=== PATIENT | male | born 1965 | race American Indian/Alaskan Native ===

== ENCOUNTER 2016-08-04 03:47 | Inpatient (IN) | payer OTHER ==
[2016-08-04] MEDS ORDERED: FUROSEMIDE 40 MG/4 ML INJECTABLE VIAL IVPUSH ONE ×2 (03:51→04:11)
[2016-08-04] MEDS ORDERED: NITROGLYCERIN 2% OINTMENT - 1GM PACKET TD ONE (03:51)
--- NOTE | 2016-08-04 03:52 | PDOC ---
[id number] No Limitations - History of Present Illness Initial Comments: 08/04/16 04:19 The patient is a 51 year old male with significant past medical history of hypertension and hyperlipidemia who presents to the ED with 2 days of progressively worsening SOB. States after his SOB progressively started to get worse, he contacted EMS. He presents with EMS on BPAP saturating at 65%. Patient denies chest pain, diaphoresis, lightheadedness, jaw pain, shoulder pain , arm pain, nausea, or vomiting. Patient does not follow up with a printer assistant. States never experiencing similar symptoms in the past. Denies sick contacts or recent travels. The patient denies fever, chills, cough, abdominal pain, and diarrhea. Allergies: NKDA Social History: Former cigarette smoker (quit 10 years ago). No alcohol or drug use reported. Past Surgical History: None reported Follows up with a physician on [address] (does not remember name) <Linda Trinh - Last Filed: 08/04/16 04:18> - General History Source: EMS <Augusto Torres - Last Filed: 08/07/16 19:42> - General Stated Complaint: DIFFICULTY BREATHING Time Seen by Provider: 08/04/16 03:50 Past History <Linda Trinh - Last Filed: 08/04/16 04:18> <Augusto Torres - Last Filed: 08/07/16 19:42> - Past Medical History Allergies/Adverse Reactions: Allergies Allergy/AdvReac Type Severity Reaction Status Date / Time No Known Allergies Allergy Verified 08/04/16 04:03 Home Medications: Ambulatory Orders Amlodipine Bes/Olmesartan Med [Garcia 10-40 mg Tablet] 1 each PO DAILY 08/04/16 Review of Systems - Review of Systems Able to Perform ROS?: Yes Comments:: 08/04/16 04:19 CONSTITUTIONAL: Absent: fever, no chills, no fatigue EYES: Absent: visual changes ENT: Absent: ear pain, no sore throat CARDIOVASCULAR: Absent: chest pain, no palpitations RESPIRATORY: +SOB Absent: cough GI: Absent: abdominal pain, no nausea, no vomiting, no constipation, no diarrhea GENITOURINARY: Absent: dysuria, no frequency, no hematuria MUSCULOSKELETAL: Absent: back pain, no arthralgia, no myalgia SKIN: Absent: rash NEURO: Absent: headache <AndresbishopStephenLinda - Last Filed: 08/04/16 04:18> *Physical Exam - Physical Exam Comments: 08/04/16 04:19 GENERAL: Well developed, well nourished. Awake and alert. Moderate distress. HEENT: Normocephalic, atraumatic. PERRLA, EOMI. No conjunctival pallor. Sclera are non- icteric. Moist mucous membranes. Oropharynx is clear. NECK: Supple. Full ROM. No JVD. Carotid pulses 2+ and symmetric, without bruits. No thyromegaly. No lymphadenopathy. CARDIOVASCULAR: Regular rate and rhythm. No murmurs, rubs, or gallops. PULMONARY: Moderate respiratory distress. Supraclavicular retractions. Moderate conversational dyspnea. Diffuse crackles in all lung jones. ABDOMINAL: Soft. Non-tender. Non-distended. No rebound or guarding. No organomegaly. Normoactive bowel sounds. MUSCULOSKELETAL Normal range of motion at all joints. No bony deformities or tenderness. No CVA tenderness. EXTREMITIES: No cyanosis. No clubbing. No edema. No calf tenderness. SKIN: Warm and dry. Normal capillary refill. No rashes. No jaundice. NEUROLOGICAL: Alert, awake, appropriate. Cranial nerves 2-12 intact. Moving all extremities. No focal neurological deficits. <AndresbishopAntoinetteLinda - Last Filed: 08/04/16 04:18> Heart Score/ECG Review - ECG Impressions Comment:: 08/04/16 04:02 Sinus tachycardia @122bpm Possible L atrial enlargement St & T wave abnormality, consider lateral ischemia Abnormal ECG <GayathriLinda - Last Filed: 08/04/16 04:18> ED Treatment Course - LABORATORY CBC & Chemistry Diagram: 08/04/16 03:45 08/04/16 03:45 <Linda Trinh - Last Filed: 08/04/16 04:18> - LABORATORY CBC & Chemistry Diagram: 08/07/16 05:25 08/07/16 05:25 <Augusto Torres - Last Filed: 08/07/16 19:42> Medical Decision Making - Medical Decision Making 08/07/16 19:41 Dr. Torres: The scribe's documentation has been prepared under my direction and personally reviewed by me in its entirery. I confirm that the note above accurately reflects all work, treatment, procedures, and medical decision making performed by me. <Augusto Torres - Last Filed: 08/07/16 19:42> *DC/Admit/Observation/Transfer - Attestations Scribe Attestion: 08/04/16 04:19 Documentation prepared by Linda Trinh, acting as emergency medical services coordinator for Augusto Torres MD <Linda Trinh - Last Filed: 08/04/16 04:18> - Discharge Dispostion Admit: Yes <Augusto Torres - Last Filed: 08/07/16 19:42> Diagnosis at time of Disposition: Pulmonary edema Qualifiers: Chronicity: acute Qualified Code(s): J81.0 - Acute pulmonary edema Dyspnea Qualifiers: Dyspnea type: orthopnea Qualified Code(s): R06.01 - Orthopnea - Discharge Dispostion Condition at time of disposition: Guarded
[2016-08-04 04:09] LABS: MCH 29.1 pg (25.7-33.7); MCHC 32.9 g/dl (32.0-35.9); MEAN CELL VOLUME 88.3 fl (80-96); MEAN PLT VOLUME 10.6 fl (7.5-11.1); PLATELET COUNT 315 K/MM3 (134-434); RDW 14.3 % (11.9-15.9); WHITE BLOOD COUNT 22.1 K/mm3 (4.0-10.0)
[2016-08-04] MEDS ORDERED: ASPIRIN 81 MG CHEWABLE TABLETS PO ONE (04:11)
[2016-08-04] MEDS ORDERED: FUROSEMIDE 40 MG/4 ML INJECTABLE VIAL ONE (04:14)
[2016-08-04] MEDS ORDERED: ASPIRIN 81 MG CHEWABLE TABLETS ONE (04:19)
[2016-08-04 04:23] LABS: INR 1.12 (0.82-1.09); PROTHROMBIN TIME (PATIENT) 12.4 SEC (9.98-11.88)
[2016-08-04 04:40] LABS: ALBUMIN 2.9 g/dl (3.4-5.0); BILIRUBIN,TOTAL 0.4 mg/dL (0.2-1.0); COCKROFT - GAULT 55.95; CREATININE 2.3 mg/dL (0.7-1.3); TOT PROT 6.9 g/dl (6.4-8.2)
[2016-08-04 04:42] LABS: TROPONIN I 0.07 ng/ml (0.00-0.05)
[2016-08-04 04:57] LABS: MAGNESIUM 2.2 mg/dL (1.8-2.4)
--- NOTE | 2016-08-04 05:42 | PN ---
Teaching Attending Note Name of Resident: Sachin Leon ATTENDING PHYSICIAN STATEMENT I saw and evaluated the patient. I reviewed the resident's note and discussed the case with the resident. I agree with the resident's findings and plan as documented. SUBJECTIVE: 51 y/o male brought to ED by EMS for severe dyspnea for 2 days. Patient history significant for HTN, hyperlipidemia and former smoker. Patient denies any chest pain, palpitations, abdominal pain, CVA tenderness, dysuria, hematuria, fever, chills, nausea or vomiting. No known sick contacts. OBJECTIVE: GEN: A&Ox3 on bipap sat 89-91% HEENT: PERRLA, EOMI, Oral mucosa moist, JVD CVS: Tachycardic, no m/g/r Lungs: b/l crackles and diminished breath sounds lower lungs. No wheezing Abd: obese, soft , NT, ND, BS+ no organomegaly Ext: no edema, nl ROM Neuro CN2-12 intact no focal deficits. CBCD WBC 22.1 K/mm3 (4.0-10.0) H 08/04/16 03:45 RBC 5.75 M/mm3 (4.00-5.60) H 08/04/16 03:45 Hgb 16.7 GM/dL (11.7-16.9) 08/04/16 03:45 Hct 50.8 % (35.4-49) H 08/04/16 03:45 MCV 88.3 fl (80-96) 08/04/16 03:45 MCHC 32.9 g/dl (32.0-35.9) 08/04/16 03:45 RDW 14.3 % (11.9-15.9) 08/04/16 03:45 Plt Count 315 K/MM3 (134-434) 08/04/16 03:45 MPV 10.6 fl (7.5-11.1) 08/04/16 03:45 CMP Sodium 142 mmol/L (136-145) 08/04/16 03:45 Potassium 3.9 mmol/L (3.5-5.1) 08/04/16 03:45 Chloride 101 mmol/L (98-107) 08/04/16 03:45 Carbon Dioxide 24 mmol/L (21-32) 08/04/16 03:45 Anion Gap 17 (8-16) H 08/04/16 03:45 BUN 35 mg/dL (7-18) H 08/04/16 03:45 Creatinine 2.3 mg/dL (0.7-1.3) H 08/04/16 03:45 Creat Clearance w eGFR 30.25 (>60) 08/04/16 03:45 Random Glucose 223 mg/dL (74-106) H 08/04/16 03:45 Calcium 9.0 mg/dL (8.5-10.1) 08/04/16 03:45 Total Bilirubin 0.4 mg/dL (0.2-1.0) 08/04/16 03:45 AST 29 U/L (15-37) 08/04/16 03:45 ALT 24 U/L (12-78) 08/04/16 03:45 Alkaline Phosphatase 94 U/L (45-117) 08/04/16 03:45 Total Protein 6.9 g/dl (6.4-8.2) 08/04/16 03:45 Albumin 2.9 g/dl (3.4-5.0) L 08/04/16 03:45 CARDIAC ENZYMES Creatine Kinase 189 IU/L (39-308) 08/04/16 03:45 Troponin I 0.07 ng/ml (0.00-0.05) H 08/04/16 03:45 ASSESSMENT AND PLAN: Dyspnea secondary to flash pulmonary edema, secondary to DOMENICA vs CHF, r/o infection. HAGMA possibly secondary to uremia from DOMENIAC , vs DKA. Demand ischemia r/o ACS. Admit to ICU * UA, U electrolytes * ABG * HgbA1c * Lipids * Trend troponins * Lactic acid, esr and crp * Continue BIPAP * Get ECHO * Diuresis Lasix 60 mg IVP * Monitor I&Os * RISS * DVT prophylaxis Heparin 5000 Unit SQ TID * Discuss advance directives Problem List - Problems (1) Pulmonary edema Code(s): J81.1 - CHRONIC PULMONARY EDEMA Qualifiers: Chronicity: acute Qualified Code(s): J81.0 - Acute pulmonary edema (2) DOMENICA (acute kidney injury) Code(s): N17.9 - ACUTE KIDNEY FAILURE, UNSPECIFIED (3) High anion gap metabolic acidosis Code(s): E87.2 - ACIDOSIS (4) Elevated troponin Code(s): R74.8 - ABNORMAL LEVELS OF OTHER SERUM ENZYMES Critical Care Total Critical Care Time (in minutes): 60 Critical Care Statement: The care of this patient involved high complexity decision making to prevent further life threatening deterioration of the patient 's condition and/or to evalute & treat vital organ system(s) failure or risk of failure.
[2016-08-04 06:14] LABS: URINE APPEARANCE CLEAR; URINE BILIRUBIN NEGATIVE (NEGATIVE); URINE COLOR YELLOW; URINE GLUCOSE (UA) 1+ (NEGATIVE); URINE KETONE TRACE (NEGATIVE); URINE LEUK ESTERASE NEGATIVE (NEGATIVE); URINE NITRITE NEGATIVE (NEGATIVE); URINE UROBILINOGEN NEGATIVE E.U./dl (0.2-1.0)
[2016-08-04 06:15] LABS: URINE BLOOD 1+ (NEGATIVE); URINE PROTEIN 2+ (NEGATIVE)
[2016-08-04 06:26] LABS: URINE HYALINE CAST 4 /lpf; URINE MUCUS RARE; URINE RBC 1 /hpf (0-3); URINE WBC 2 /hpf (3-5)
[2016-08-04 06:47] LABS: ARTERIAL BLOOD GAS HCO3 22.4 meq/L (22-26); ARTERIAL BLOOD GAS PO2 70.8 mmHg (80-100)
[2016-08-04 06:50] LABS: METHEMOGLOBIN 0.6 % (0.4-1.5)
[2016-08-04 06:51] LABS: ALLENS TEST POSITIVE; ART PUNCT SITE RIGHT RADIAL; LPM/O2% 100%; MECH. VENT. BIPAP; PT. ON O2? YES; TYPE OF O2 BIPAP; VENT RATE 15
[2016-08-04 06:54] LABS: ARTERIAL BLOOD GAS pH 7.46 (7.35-7.45)
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
--- NOTE | 2016-08-04 08:58 | EKG ---
Test Reason : Blood Pressure : / mmHG Vent. Rate : 122 BPM Atrial Rate : 122 BPM P-R Int : 148 ms QRS Dur : 094 ms QT Int : 336 ms P-R-T Axes : 048 001 101 degrees QTc Int : 478 ms SINUS TACHYCARDIA POSSIBLE LEFT ATRIAL ENLARGEMENT ABNORMAL ECG NO PREVIOUS ECGS AVAILABLE Confirmed by DEBRA SMITH MD ([id number]) on 08/04/2016 8:58:11 AM Referred By: Confirmed By:DEBRA SMITH MD
[2016-08-04 09:06] LABS: CHOLESTEROL 178 mg/dL (50-200); LDL CHOLESTEROL (ONLY SJRH) 95 mg/dL (5-100)
[2016-08-04 10:39] LABS: TROPONIN I 0.24 ng/ml (0.00-0.05)
--- NOTE | 2016-08-04 11:08 | HOSP ---
Subjective - Review of Symptoms Events since last encounter: Patient improving on BIPAP 100% Subjective: Patient more alert and states he feels better. Pulmonary: Yes: Cough Cardiovascular: Yes: Orthopnea. No: Chest Pain, Palpitations, Edema Gastrointestinal: No: Nausea, Vomiting, Abdominal Pain Genitourinary: No: Dysuria, Frequency, Incontinence Musculoskeletal: No: Back Pain Neurological: No: Weakness, Change in speech, Confusion Physical Examination Vital Signs: Vital Signs Temperature 97.6 F 08/04/16 06:30 Pulse Rate 98 H 08/04/16 10:24 Respiratory Rate 24 08/04/16 10:24 Blood Pressure 122/82 08/04/16 10:24 O2 Sat by Pulse Oximetry (%) 93 L 08/04/16 10:24 Constitutional: Yes: Calm, Moderate Distress, Obese Eyes: Yes: Conjunctiva Clear, EOM Intact, PERRL HENT: Yes: Atraumatic, Normocephalic. No: Nasal Congestion, Pharyngeal Erythema Neck: Yes: Supple, Trachea Midline. No: Lymphadenopathy Cardiovascular: Yes: Tachycardia, JVD, S1, S2. No: Gallop, Murmur Respiratory: Yes: On BiPap, Rales, SOB, Tachypnea. No: Wheezes Gastrointestinal: Yes: Normal Bowel Sounds, Soft, Abdomen, Obese. No: Tenderness Edema: No Peripheral Pulses WNL: Yes Integumentary: Yes: WNL Neurological: Yes: Alert, Oriented, Cran Nerves II-XII Intact ...Motor Strength: WNL Psychiatric: Yes: Alert, Oriented Labs: CBCD WBC 22.1 K/mm3 (4.0-10.0) H 08/04/16 03:45 RBC 5.75 M/mm3 (4.00-5.60) H 08/04/16 03:45 Hgb 16.7 GM/dL (11.7-16.9) 08/04/16 03:45 Hct 50.8 % (35.4-49) H 08/04/16 03:45 MCV 88.3 fl (80-96) 08/04/16 03:45 MCHC 32.9 g/dl (32.0-35.9) 08/04/16 03:45 RDW 14.3 % (11.9-15.9) 08/04/16 03:45 Plt Count 315 K/MM3 (134-434) 08/04/16 03:45 MPV 10.6 fl (7.5-11.1) 08/04/16 03:45 CMP Sodium 142 mmol/L (136-145) 08/04/16 03:45 Potassium 3.9 mmol/L (3.5-5.1) 08/04/16 03:45 Chloride 101 mmol/L (98-107) 08/04/16 03:45 Carbon Dioxide 24 mmol/L (21-32) 08/04/16 03:45 Anion Gap 17 (8-16) H 08/04/16 03:45 BUN 35 mg/dL (7-18) H 08/04/16 03:45 Creatinine 2.3 mg/dL (0.7-1.3) H 08/04/16 03:45 Creat Clearance w eGFR 30.25 (>60) 08/04/16 03:45 Random Glucose 223 mg/dL (74-106) H 08/04/16 03:45 Calcium 9.0 mg/dL (8.5-10.1) 08/04/16 03:45 Total Bilirubin 0.4 mg/dL (0.2-1.0) 08/04/16 03:45 AST 29 U/L (15-37) 08/04/16 03:45 ALT 24 U/L (12-78) 08/04/16 03:45 Alkaline Phosphatase 94 U/L (45-117) 08/04/16 03:45 Total Protein 6.9 g/dl (6.4-8.2) 08/04/16 03:45 Albumin 2.9 g/dl (3.4-5.0) L 08/04/16 03:45 CARDIAC ENZYMES Creatine Kinase 192 IU/L (39-308) 08/04/16 09:44 Troponin I 0.24 ng/ml (0.00-0.05) H D 08/04/16 09:44 Hospitalist Encounter Assessment: Acute pulmonary edema possibly secondary to HTN emergency, elevated troponins, and DOMENICA vs DOMENICA on CKD, r/o CHF. Elevated troponins possibly secondary to demand ischemia, r/o ACS repeat EKG and follow ECHO. Continue diuresis 40mg Lasix TID and follow I&Os. Repeat CXR in AM. HgbA1c 6.4 prediabetic- diabetic low sodium diet. Follow ICU and cardiology consults. Plans d/w patient and agreed on as documented. Critical Care Total Critical Care Time (in minutes): 30 Critical Care Statement: The care of this patient involved high complexity decision making to prevent further life threatening deterioration of the patient 's condition and/or to evalute & treat vital organ system(s) failure or risk of failure.
[2016-08-04] MEDS ORDERED: FUROSEMIDE 40 MG/4 ML INJECTABLE VIAL IVPUSH SCH (12:00)
[2016-08-04 13:04] LABS: BASOPHIL 0.2 % (0-2.0); EOSINOPHIL 0.3 % (0-4.5); MCH 29.1 pg (25.7-33.7); MEAN CELL VOLUME 88.2 fl (80-96); MEAN PLT VOLUME 10.1 fl (7.5-11.1); NEUTROPHILS 90.4 % (42.8-82.8); PLATELET COUNT 229 K/MM3 (134-434); RDW 14.4 % (11.9-15.9); WHITE BLOOD COUNT 24.4 K/mm3 (4.0-10.0)
[2016-08-04 13:29] LABS: ALBUMIN 2.6 g/dl (3.4-5.0); CALCIUM 8.2 mg/dL (8.5-10.1); COCKROFT - GAULT 47.66; CREATININE 2.7 mg/dL (0.7-1.3)
[2016-08-04 13:30] LABS: BILIRUBIN,TOTAL 0.4 mg/dL (0.2-1.0); TOT PROT 6.3 g/dl (6.4-8.2)
[2016-08-04 15:05] VITALS: BMI 33.5
[2016-08-04] MEDS ORDERED: INFLUENZA VACCINE 45 MCG/0.5 ML (MDV 16-17) IM ONE (15:05)
--- NOTE | 2016-08-04 15:30 | PN ---
Progress Note (short form) - Note Progress Note: PULMONARY CONSULTATION DICTATED 08/04/16 IMP ACUTE HYPOXEMIC RESPIRATORY FAILURE SEPSIS ARDS, LIKELY PNEUMONIA,? BACTERIAL,ATYPICAL,?LEGIONELLA,?VIRAL ACUTE RENAL FAILURE LV DYSFUNCTION + TROPONINS ELEVATED LACTATE LEVEL PLAN ANTIBIOTICS PER ID STEROIDS BIPAP,WILL INTUBATE IF PT DEVELOPES INCREASED RESPIRATORY DISTRESS MONITOR LYTES,CBC CULTURES TREND LACTATE DR TINSLEY CRITICAL CARE TIME 45MIN Problem List - Problems (1) HLD (hyperlipidemia) Code(s): E78.5 - HYPERLIPIDEMIA, UNSPECIFIED (2) HTN (hypertension) Code(s): I10 - ESSENTIAL (PRIMARY) HYPERTENSION (3) Acute hypoxemic respiratory failure Code(s): J96.01 - ACUTE RESPIRATORY FAILURE WITH HYPOXIA (4) ARDS (adult respiratory distress syndrome) Code(s): J80 - ACUTE RESPIRATORY DISTRESS SYNDROME (5) DOMENICA (acute kidney injury) Code(s): N17.9 - ACUTE KIDNEY FAILURE, UNSPECIFIED (6) Elevated troponin Code(s): R74.8 - ABNORMAL LEVELS OF OTHER SERUM ENZYMES (7) LV dysfunction Code(s): I51.9 - HEART DISEASE, UNSPECIFIED (8) Lactate blood increase Code(s): R79.89 - OTHER SPECIFIED ABNORMAL FINDINGS OF BLOOD CHEMISTRY (9) Sepsis Code(s): A41.9 - SEPSIS, UNSPECIFIED ORGANISM
--- NOTE | 2016-08-04 15:31 | PN ---
Progress Note, Physician Chief Complaint: ID Dyspneic Alert Full note dictated Denies couph fevers chills sweats Acutely ill with worsening SOB over the last 3 days Only medical problem HPTN No travel HIV risks Born in [place] Raised here locally Works in [employer] worker - Current Medication List Current Medications: Active Medications Chlorhexidine Gluconate (Hibiclens For Decolonization -) 1 applic TP HS DARBY Furosemide (Lasix Injection -) 40 mg IVPUSH TID DARBY Last Admin: 08/04/16 12:30 Dose: 40 mg Heparin Sodium (Porcine) (Heparin -) 5,000 unit SQ TID DARBY Influenza Virus Vaccine (Fluvirin) 45 mcg IM .ONCE ONE Stop: 08/04/16 15:06 Mupirocin (Bactroban Ointment (For Decolonization) -) 1 applic NS BID DARBY Stop: 08/09/16 09:59 Pneumococcal 13-Valent Conj Vacc (Prevnar 13 Syringe -) 0.5 ml IM .ONCE ONE Stop: 08/04/16 15:06 - Objective Vital Signs: Vital Signs Temperature 97.6 F 08/04/16 06:30 Pulse Rate 100 H 08/04/16 15:13 Respiratory Rate 33 H 08/04/16 15:13 Blood Pressure 146/97 08/04/16 15:13 O2 Sat by Pulse Oximetry (%) 96 08/04/16 15:13 Constitutional: Yes: Obese Cardiovascular: Yes: Regular Rate and Rhythm, S1, S2 Respiratory: Yes: Rales Gastrointestinal: Yes: Soft. No: Tenderness, Tenderness, Rebound Edema: No Labs: CBC, BMP 08/04/16 12:45 08/04/16 12:45 INR, PTT INR 1.12 (0.82-1.09) 08/04/16 03:45 Assessment/Plan Laboratory Tests 08/04/16 08/04/16 08/04/16 03:45 05:44 06:45 WBC Hgb Plt Count Neutrophils % ESR INR 1.12 Oxygen Flow Rate 100% Lactic Acid Troponin I Urine RBC 1 Urine WBC 2 08/04/16 08/04/16 08/04/16 09:44 09:44 12:45 WBC 24.4 H Hgb 15.2 Plt Count 229 D Neutrophils % 90.4 H ESR 75 H INR Oxygen Flow Rate Lactic Acid Troponin I 0.24 H D Urine RBC Urine WBC 08/04/16 12:45 WBC Hgb Plt Count Neutrophils % ESR INR Oxygen Flow Rate Lactic Acid 2.171 H* Troponin I Urine RBC Urine WBC Assessment Bilateral extensive pulmonary infiltrates assume pneumonia infectious etiology Acute renal failure sepsis related but vasculitis considered Respiratory failure Plan Blood cultures x 2 legionella urinary antigen Spustum c/s HIV test Vasculitis serology Renal and pulmonary on board ICU monitering Influenza screen negative Demario
[2016-08-04] MEDS ORDERED: VANCOMYCIN 1,750 MG in DEXTROSE 5%-WATER - 500 ML IVPB ONE (15:34)
--- NOTE | 2016-08-04 16:18 | CONS ---
DATE OF CONSULTATION: 08/04/2016 PULMONARY CONSULTATION REFERRING PHYSICIAN: Akosua Sanchez M.D. HISTORY OF PRESENT ILLNESS: The patient is a 51-year-old male past medical history of hypertension, hyperlipidemia, history of tobacco use approximately 1 pack per day many years, quit 10 years ago, admitted to [facility] with a 2-day history of increasing shortness of breath. Patient denying complaint of chest pain, nausea, vomiting, diaphoreses. Had a cough which was nonproductive. Denies any fevers or chills. He states that last night when getting up out of the chair he felt markedly short of breath. EMS was called, and the patient was noted to be hypoxic with a saturation of 65%. EMS, placed the patient on BiPAP, supplemental O2. Hospitalization significant for an admission, he was felt to have possible CHF. He was administered Lasix but no significant improvement. He was also noted to have elevated troponins of 0.24 and BNP is mildly elevated at 1197. Patient also found to have renal failure. Patient denies any history of COPD or asthma. There is no history of occupational lung diseases, no DVT or PE in the past. There is no history of recent travel. He denies any recent URI symptoms. He states no one in the family has been recently ill. There is no history of pets at home. He denies any significant shortness of breath past few days. PAST MEDICAL HISTORY: Again include hypertension, hyperlipidemia. REVIEW OF SYSTEMS: Positive orthopnea. Positive dyspnea. No chest pain. No palpitations. Positive mild cough. No fever. No chills. No nausea. No vomiting. No diaphoresis. No abdominal pain. No lower extremity edema. CURRENT MEDICATIONS: Include Lasix 40 t.i.d., heparin . PHYSICAL EXAMINATION: General: The patient is an obese male, awake, alert, dyspneic, under distress. Vital signs: On BiPAP his O2 saturation is 96%. Heart rate is 98. Blood pressure 127/85, respiratory rate 18. Of note is the patient's blood pressure on admission. HEENT: Head is normocephalic, atraumatic. Neck: Supple. Heart: Regular. Tachycardic. Normal S1, S2. Chest: Crackles bilaterally. Abdomen: Soft. Bowel sounds positive. Extremities: No cyanosis, edema. LABORATORY: BUN 40, creatinine 2.7. Lactate level is 2.17. Troponin is 0.24. BNP 1197. Of note is, CRP is 27.9, ESR is 75, WBC is 24.4, hemoglobin 15.2, hematocrit 46, platelet count 229,000. There are 90 polycytes, 5 lymphocytes, 3 monocytes. INR is 1.12. Chest x-ray, diffuse bilateral infiltrates no pleural effusions. Echocardiogram reveals left ventricle mildly dilated and mildly reduced left ventricular systolic function. There is mild global hypokinesia. Blood gas: pH 7.46, pCO2 of 31, and pO2 of 70, bicarbonate 22, saturation 94%. IMPRESSION: 1. Acute hypoxemic respiratory failure, likely pneumonia typical vs atypical, legionella ,viral, possible inflammatory. 2. Sepsis 3. Positive troponins, rule out myocardial infarction. Possible demand ischemia. 4. Acute Renal failure. 5. LV dysfunction 6, Elevated lactate level PLAN: BiPAP. ICU, transfer to ICU. Patient may require intubation. If patient's respiratory status declines, monitor renal function. short course of steroids. Antibiotic therapy. Renal evaluation. Infectious disease evaluation. Trend lactate, Obtain cultures. Follow up arterial blood gases. Follow up chest x-rays. Possible workup for connective tissue disorder. STIVEN TINSLEY M.D. [id number] MTDD
[2016-08-04] MEDS ORDERED: AZITHROMYCIN IVPB 500 MG in DEXTROSE 5%-WATER - 250 ML IVPB ONE (16:24)
[2016-08-04] MEDS ORDERED: CEFTRIAXONE 100 ML IVPB ONE (16:24)
[2016-08-04] MEDS ORDERED: AZITHROMYCIN IVPB 500 MG in DEXTROSE 5%-WATER - 250 ML IVPB SCH (16:30)
[2016-08-04] MEDS: methylPREDNISolone NA SUCC 40 MG/1 ML VIAL IVPB SCH (16:37)
[2016-08-04] MEDS: HEPARIN NA (PORCINE) 5,000 UNITS/ML 1ML VIAL SQ SCH ×2 (16:40→21:35)
--- NOTE | 2016-08-04 16:40 | CONS ---
DATE OF CONSULTATION: DATE OF DICTATION: 08/04/2016 INFECTIOUS DISEASE CONSULTATION HISTORY OF PRESENT ILLNESS: This is a 51-year-old male who I am asked to see with shortness of breath and leukocytosis. This 51-year-old male with a history of essentially only hypertension, hyperlipidemia, presented to the emergency room with a 3-day history of worsening shortness of breath. Other than his history of hypertension and elevated cholesterol, he had been in good health until earlier this week, when he noted onset of worsening shortness of breath. When he came to the emergency room, he was saturating at about 65% on a BiPAP mask. While he had no fever, he had a marked leukocytosis of 24,000. X-rays showed diffuse bilateral pulmonary infiltrates, possibility of congestive heart failure was considered, and he was given Lasix without significant improvement. He has no history of travel and lives locally. He has no HIV risk factors, does not use drugs or alcohol, nor does he smoke. He has children at home who have been sick recently with a respiratory tract infection according to Dr. Javed. 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 He has no pets or unusual hobbies. The record indicates he smoked, but gave this up 10 years ago. PHYSICAL EXAMINATION: General: He is a heavy set male weighing 250 pounds. Vital signs: Temperature normal. Pulse 100, blood pressure 146/97, respiratory rate 33, and O2 saturation 96% on BiPAP. Neck: Supple without adenopathy. Lungs: With bilateral rales. Heart: S1, S2. Regular rhythm. Distant heart sounds. Abdomen: Soft. Nontender without hepatosplenomegaly. Extremities: Without clubbing, cyanosis, or edema. LABORATORY: The white count was 24,000, hemoglobin 15.2, platelets 229 with a sedimentation rate of 75. INR 1.2. AB.46, 32, 71, with 100% oxygen. The BUN was 40, creatinine 2.7, lactic acid 2.1, liver enzymes within normal limits. Chest x-ray was reviewed with Dr. Javed and shows diffuse bilateral infiltrates with air space disease. ASSESSMENT: A 51-year-old male with a history only of hypertension, hyperlipidemia, presents with sepsis syndrome and respiratory failure with bilateral pulmonary infiltrates. He was a former smoker but gave this up many years ago. He has no human immunodeficiency virus risk factors. At this point, I would be inclined to think that he has an acute fulminant bacterial pneumonia. He is in renal failure, and the possibility of vasculitis with pulmonary renal syndrome considered; however, his urinalysis sediment has 1 RBC and 2 WBCs suggesting that he does not have an active urinary sediment which would argue against pulmonary renal syndrome. The renal failure may be on the basis of sepsis. He should have prompt antibiotics given with vancomycin, ceftriaxone, and azithromycin, the possibility of legionella pneumonia strongly considered in view of his otherwise normal immune system and the fulminant nature of his pneumonia. Blood cultures will be obtained along with a urine culture, legionella urinary antigen, and serologies for vasculitis. He has already been screened negative for influenza. The case was discussed at length with Dr. Javed. HEATH SEGURA M.D. [id number]
[2016-08-04] MEDS: ALBUTEROL SO4 2.5/IPRATROPIUM 0.5 INH SOL 3 ML VIAL.NEB. NEB SCH (17:20)
--- NOTE | 2016-08-04 17:33 | CONSULT ---
Consult Consult Specialty:: Nephrology Reason for Consultation:: DOMENICA - History of Present Illness Chief Complaint: shortness of breath History of Present Illness: Pt is a 51 year old male with pmhx of HTN and hyperlipidemia who presents to the ER with progressive shortness of breath. He started to feel sick on Sunday and worsened through the course of the week. He says both of his sons were sick with a viral syndrome this week as well. He denies chest pain. He was found to be hypoxic in the ER and his chest x-ray revealed infultrates. He was found to have elevated creatinine and I was called to evaluate him. He denies history of kidney disease. He denies hematuria or dysuria. He is awake and alert. He is able to answer questions. Family are at bedside and assisted with history. Pt denies abdominal pain. Pt is on Derian as outpt (amlodipine and arb). - History Source History Provided By: Patient, Medical Record - Past Medical History Cardio/Vascular: Yes: HTN, Hyperlipdemia - Alcohol/Substance Use Hx Alcohol Use: No - Smoking History Smoking history: Former smoker Have you smoked in the past 12 months: No If you are a former smoker, when did you quit?: 10 years Home Medications - Allergies Allergies/Adverse Reactions: Allergies Allergy/AdvReac Type Severity Reaction Status Date / Time No Known Allergies Allergy Verified 08/04/16 04:03 - Home Medications Home Medications: Ambulatory Orders Amlodipine Bes/Olmesartan Med [Derian 10-40 mg Tablet] 1 each PO DAILY 08/04/16 Family Disease History - Family Disease History Family History: Denies Review of Systems - Review of Systems Constitutional: reports: Chills, Diaphoresis, Malaise Eyes: reports: No Symptoms HENT: reports: No Symptoms Neck: reports: No Symptoms Cardiovascular: reports: Shortness of Breath. denies: Chest Pain, Edema Respiratory: reports: SOB Gastrointestinal: reports: No Symptoms Genitourinary: reports: No Symptoms Musculoskeletal: reports: No Symptoms Integumentary: reports: No Symptoms Neurological: reports: No Symptoms Endocrine: reports: No Symptoms Hematology/Lymphatic: reports: No Symptoms Physical Exam Vital Signs: Vital Signs Temperature 99 F 08/04/16 16:18 Pulse Rate 104 H 08/04/16 16:18 Respiratory Rate 28 H 08/04/16 16:18 Blood Pressure 148/99 08/04/16 16:18 O2 Sat by Pulse Oximetry (%) 96 08/04/16 16:52 Constitutional: Yes: Calm Eyes: Yes: Conjunctiva Clear HENT: Yes: Atraumatic Neck: Yes: Supple Cardiovascular: Yes: S1, S2 Respiratory: Yes: On BiPap, Rhonchi Gastrointestinal: Yes: Soft Renal/: Yes: WNL Musculoskeletal: Yes: WNL Extremities: Yes: WNL Edema: No Neurological: Yes: Oriented Psychiatric: Yes: Oriented Labs: CBC, BMP 08/04/16 12:45 08/04/16 12:45 Laboratory Tests 08/04/16 08/04/16 08/04/16 03:45 03:45 03:45 WBC 22.1 H Hgb 16.7 Plt Count 315 INR 1.12 ABG pH ABG pCO2 at Pt Temp ABG pO2 at Pt Temp ABG HCO3 ABG O2 Sat (Measured) ABG O2 Content Sodium Potassium Chloride Carbon Dioxide Anion Gap 17 H BUN 35 H Creatinine 2.3 H Creat Clearance w eGFR Random Glucose Lactic Acid Total Protein Albumin 08/04/16 08/04/16 08/04/16 06:45 08:00 12:45 WBC 24.4 H Hgb 15.2 Plt Count 229 D INR ABG pH 7.46 H ABG pCO2 at Pt Temp 31.8 L ABG pO2 at Pt Temp 70.8 L ABG HCO3 22.4 ABG O2 Sat (Measured) 94.0 ABG O2 Content 21.2 Sodium Potassium Chloride Carbon Dioxide Anion Gap BUN Creatinine Creat Clearance w eGFR Random Glucose Lactic Acid 2.217 H* Total Protein Albumin 08/04/16 08/04/16 12:45 12:45 WBC Hgb Plt Count INR ABG pH ABG pCO2 at Pt Temp ABG pO2 at Pt Temp ABG HCO3 ABG O2 Sat (Measured) ABG O2 Content Sodium 143 Potassium 3.8 Chloride 105 Carbon Dioxide 25 Anion Gap 13 BUN 40 H Creatinine 2.7 H Creat Clearance w eGFR 25.14 Random Glucose 152 H D Lactic Acid 2.171 H* Total Protein 6.3 L Albumin 2.6 L Imaging - Results Chest X-ray: Report Reviewed (bilateral infultrates) Problem List - Problems (1) DOMENICA (acute kidney injury) Code(s): N17.9 - ACUTE KIDNEY FAILURE, UNSPECIFIED (2) ARDS (adult respiratory distress syndrome) Code(s): J80 - ACUTE RESPIRATORY DISTRESS SYNDROME (3) Elevated troponin Code(s): R74.8 - ABNORMAL LEVELS OF OTHER SERUM ENZYMES (4) HLD (hyperlipidemia) Code(s): E78.5 - HYPERLIPIDEMIA, UNSPECIFIED (5) HTN (hypertension) Code(s): I10 - ESSENTIAL (PRIMARY) HYPERTENSION (6) Respiratory failure with hypoxia Code(s): J96.91 - RESPIRATORY FAILURE, UNSPECIFIED WITH HYPOXIA Assessment/Plan Current Medications Generic Name Dose Route Start Last Admin Trade Name Freq PRN Reason Stop Dose Admin Chlorhexidine Gluconate 1 applic 08/04/16 22:00 Hibiclens For Decolonization - TP HS DARBY Heparin Sodium (Porcine) 5,000 unit 08/04/16 14:00 08/04/16 16:40 Heparin - SQ 5,000 unit TID DARBY Administration Ceftriaxone Sodium 100 mls @ 200 mls/hr 08/05/16 10:00 Rocephin 2gm Ivpb (Pre-Docked) IVPB DAILY DARBY Azithromycin 250 mls @ 250 mls/hr 08/04/16 16:30 Zithromax 500mg Ivpb (Pre-Docked) IVPB DAILY DARBY Methylprednisolone Sodium Succinate 40 mg 08/04/16 16:15 08/04/16 16:37 Solu-Medrol - IVPB 40 mg DAILY DARBY Administration Mupirocin 1 applic 08/04/16 17:00 Bactroban Ointment (For Decolonization) - NS 08/09/16 16:59 BID DARBY Pneumococcal 13-Valent Conj Vacc 0.5 ml 08/04/16 18:00 Prevnar 13 Syringe - IM 08/04/16 18:01 .ONCE ONE Laboratory Tests 08/04/16 08/04/16 08/04/16 05:44 05:44 12:45 Sodium 143 Creatinine 2.7 H Urine Protein 2+ H Urine Blood 1+ H Urine RBC 1 Ur Random Sodium 24 Urine Creatinine 296.0 Impression 1. DOMENICA 2. sepsis 3. HTN 4. hyperlipidemia 5. ARDS 6. lactic acidosis 7. CHF with systolic dysfunction 8. resp failure requiring Bipap 9. hypoxia Plan - FENa is 0.15 percent, which is characteristic of pre-renal disease - check ultrasound kidneys and bladder - send lulu, esr, and anca - cont abx - follow up cultures - admit pt to ICU - cont with Bipap, saturation improved once started - check complement levels - will need to monitor renal function closely - echo reviewed, there is LV dysfunction, cardiology evaluation - recommend holding derian, would not give Arbs at this time - pt received lasix on ER, will observe in ICU - trend lactic acid levels - will need to consider vasculitis, pt is already on steroids - discussed with pulmonary Dr Rosa
[2016-08-04] MEDS ORDERED: ALBUTEROL SO4 2.5/IPRATROPIUM 0.5 INH SOL 3 ML VIAL.NEB. NEB PRN (17:40)
--- NOTE | 2016-08-04 17:42 | PN ---
Physical Exam: SUBJECTIVE: Patient seen and examined Pt is a 51 year old male with pmhx of HTN and hyperlipidemia who presents to the ER with progressive shortness of breath. He started to feel sick on Sunday and worsened through the course of the week. He says both of his sons were sick with a viral syndrome this week as well. He denies chest pain. He was found to be hypoxic in the ER and his chest x-ray revealed infultrates. He was found to have elevated creatinine. He denies chest pain. He denies hematuria or dysuria. He is awake and alert. He is able to answer questions. Pt denies abdominal pain. Pt is on amlodipine and arb. patient is on bipap since morning , states breathing has slightly improved denies chest pain, lighheadidnes, dizziness, nusea vomiting got azithro, vanco and zosyn got 40 mg solumedrol trend lactic acid, trop i if distress increases intubate patient patient is full code. OBJECTIVE: Vital Signs Period Temp Pulse Resp BP Sys/[place] Pulse Ox Last 24 Hr 97.6 F-99 F 97-106 18-33 109-148/81-99 92-100 GENERAL: Awake, alert, and fully oriented, on bipap. HEAD: Normal with no signs of trauma. EYES: extraocular movements intact, sclera anicteric, conjunctiva clear. No lid lag. EARS, NOSE, THROAT: Ears normal, nares patent, NECK: Normal range of motion LUNGS: no wheezing, b/l diffuse rales, HEART: s1s2 normal tachy ABDOMEN: Soft, obese, nontender, not distended, normoactive bowel sounds, no guarding, no rebound, no masses. MUSCULOSKELETAL: Normal range of motion at all joints. No bony deformities or tenderness. No CVA tenderness. LOWER EXTREMITIES: 2+ pulses, warm, well-perfused. No calf tenderness. NEUROLOGICAL: Normal speech. Gait not observed. PSYCHIATRIC: Cooperative. Good eye contact. Appropriate mood and affect. SKIN: Warm, dry, normal turgor, no rashes or lesions noted, normal capillary refil Laboratory Results - last 24 hr 08/04/16 08/04/16 08/04/16 05:44 05:44 06:45 WBC RBC Hgb Hct MCV MCHC RDW Plt Count MPV Neutrophils % Lymphocytes % Monocytes % Eosinophils % Basophils % ESR Puncture Site Right radial ABG pH 7.46 H ABG pCO2 at Pt Temp 31.8 L ABG pO2 at Pt Temp 70.8 L ABG HCO3 22.4 ABG O2 Sat (Measured) 94.0 ABG O2 Content 21.2 ABG Base Excess 0.0 Shaquille Test Positive Carboxyhemoglobin 1.3 Methemoglobin 0.6 O2 Delivery Device Bipap Oxygen Flow Rate 100% Vent Mode S/t Vent Rate 15 Mechanical Rate Bipap PEEP 0.0 Pressure Support Vent 12/6 Sodium Potassium Chloride Carbon Dioxide Anion Gap BUN Creatinine Creat Clearance w eGFR Random Glucose Hemoglobin A1c % Lactic Acid Calcium Total Bilirubin AST ALT Alkaline Phosphatase Creatine Kinase Creatine Kinase Index CK-MB (CK-2) CK-MB (CK-2) Rel Index Troponin I C-Reactive Protein Total Protein Albumin Triglycerides Cholesterol Total LDL Cholesterol HDL Cholesterol Urine Color Yellow Urine Appearance Clear Urine pH 5.0 Ur Specific Melber 1.029 Urine Protein 2+ H Urine Glucose (UA) 1+ H Urine Ketones Trace H Urine Blood 1+ H Urine Nitrite Negative Urine Bilirubin Negative Urine Urobilinogen Negative Ur Leukocyte Esterase Negative Urine RBC 1 Urine WBC 2 Ur Epithelial Cells Rare Hyaline Casts 4 Urine Mucus Rare Ur Random Sodium 24 Ur Random Potassium 70.0 Ur Random Chloride 12 Urine Creatinine 296.0 08/04/16 08/04/16 08/04/16 07:57 08:00 08:30 WBC RBC Hgb Hct MCV MCHC RDW Plt Count MPV Neutrophils % Lymphocytes % Monocytes % Eosinophils % Basophils % ESR Puncture Site ABG pH ABG pCO2 at Pt Temp ABG pO2 at Pt Temp ABG HCO3 ABG O2 Sat (Measured) ABG O2 Content ABG Base Excess Shaquille Test Carboxyhemoglobin Methemoglobin O2 Delivery Device Oxygen Flow Rate Vent Mode Vent Rate Mechanical Rate PEEP Pressure Support Vent Sodium Potassium Chloride Carbon Dioxide Anion Gap BUN Creatinine Creat Clearance w eGFR Random Glucose Hemoglobin A1c % 6.4 H Lactic Acid 2.217 H* Calcium Total Bilirubin AST ALT Alkaline Phosphatase Creatine Kinase Creatine Kinase Index CK-MB (CK-2) CK-MB (CK-2) Rel Index Troponin I C-Reactive Protein Total Protein Albumin Triglycerides 145 Cholesterol 178 Total LDL Cholesterol 95 HDL Cholesterol 43 Urine Color Urine Appearance Urine pH Ur Specific Melber Urine Protein Urine Glucose (UA) Urine Ketones Urine Blood Urine Nitrite Urine Bilirubin Urine Urobilinogen Ur Leukocyte Esterase Urine RBC Urine WBC Ur Epithelial Cells Hyaline Casts Urine Mucus Ur Random Sodium Ur Random Potassium Ur Random Chloride Urine Creatinine 08/04/16 08/04/16 08/04/16 09:44 09:44 09:44 WBC RBC Hgb Hct MCV MCHC RDW Plt Count MPV Neutrophils % Lymphocytes % Monocytes % Eosinophils % Basophils % ESR 75 H Puncture Site ABG pH ABG pCO2 at Pt Temp ABG pO2 at Pt Temp ABG HCO3 ABG O2 Sat (Measured) ABG O2 Content ABG Base Excess Shaquille Test Carboxyhemoglobin Methemoglobin O2 Delivery Device Oxygen Flow Rate Vent Mode Vent Rate Mechanical Rate PEEP Pressure Support Vent Sodium Potassium Chloride Carbon Dioxide Anion Gap BUN Creatinine Creat Clearance w eGFR Random Glucose Hemoglobin A1c % Lactic Acid Calcium Total Bilirubin AST ALT Alkaline Phosphatase Creatine Kinase 192 Creatine Kinase Index 1.9 CK-MB (CK-2) 3.824 H CK-MB (CK-2) Rel Index Troponin I 0.24 H D C-Reactive Protein 27.9 H Total Protein Albumin Triglycerides Cholesterol Total LDL Cholesterol HDL Cholesterol Urine Color Urine Appearance Urine pH Ur Specific Melber Urine Protein Urine Glucose (UA) Urine Ketones Urine Blood Urine Nitrite Urine Bilirubin Urine Urobilinogen Ur Leukocyte Esterase Urine RBC Urine WBC Ur Epithelial Cells Hyaline Casts Urine Mucus Ur Random Sodium Ur Random Potassium Ur Random Chloride Urine Creatinine 08/04/16 08/04/16 08/04/16 09:44 12:45 12:45 WBC 24.4 H RBC 5.21 Hgb 15.2 Hct 46.0 MCV 88.2 MCHC 33.0 RDW 14.4 Plt Count 229 D MPV 10.1 Neutrophils % 90.4 H Lymphocytes % 5.6 L Monocytes % 3.5 L Eosinophils % 0.3 Basophils % 0.2 ESR Puncture Site ABG pH ABG pCO2 at Pt Temp ABG pO2 at Pt Temp ABG HCO3 ABG O2 Sat (Measured) ABG O2 Content ABG Base Excess Shaquille Test Carboxyhemoglobin Methemoglobin O2 Delivery Device Oxygen Flow Rate Vent Mode Vent Rate Mechanical Rate PEEP Pressure Support Vent Sodium 143 Potassium 3.8 Chloride 105 Carbon Dioxide 25 Anion Gap 13 BUN 40 H Creatinine 2.7 H Creat Clearance w eGFR 25.14 Random Glucose 152 H D Hemoglobin A1c % Lactic Acid Calcium 8.2 L Total Bilirubin 0.4 AST 30 ALT 24 Alkaline Phosphatase 81 Creatine Kinase Creatine Kinase Index CK-MB (CK-2) CK-MB (CK-2) Rel Index Cancelled Troponin I C-Reactive Protein Total Protein 6.3 L Albumin 2.6 L Triglycerides Cholesterol Total LDL Cholesterol HDL Cholesterol Urine Color Urine Appearance Urine pH Ur Specific Melber Urine Protein Urine Glucose (UA) Urine Ketones Urine Blood Urine Nitrite Urine Bilirubin Urine Urobilinogen Ur Leukocyte Esterase Urine RBC Urine WBC Ur Epithelial Cells Hyaline Casts Urine Mucus Ur Random Sodium Ur Random Potassium Ur Random Chloride Urine Creatinine 08/04/16 12:45 WBC RBC Hgb Hct MCV MCHC RDW Plt Count MPV Neutrophils % Lymphocytes % Monocytes % Eosinophils % Basophils % ESR Puncture Site ABG pH ABG pCO2 at Pt Temp ABG pO2 at Pt Temp ABG HCO3 ABG O2 Sat (Measured) ABG O2 Content ABG Base Excess Shaquille Test Carboxyhemoglobin Methemoglobin O2 Delivery Device Oxygen Flow Rate Vent Mode Vent Rate Mechanical Rate PEEP Pressure Support Vent Sodium Potassium Chloride Carbon Dioxide Anion Gap BUN Creatinine Creat Clearance w eGFR Random Glucose Hemoglobin A1c % Lactic Acid 2.171 H* Calcium Total Bilirubin AST ALT Alkaline Phosphatase Creatine Kinase Creatine Kinase Index CK-MB (CK-2) CK-MB (CK-2) Rel Index Troponin I C-Reactive Protein Total Protein Albumin Triglycerides Cholesterol Total LDL Cholesterol HDL Cholesterol Urine Color Urine Appearance Urine pH Ur Specific Melber Urine Protein Urine Glucose (UA) Urine Ketones Urine Blood Urine Nitrite Urine Bilirubin Urine Urobilinogen Ur Leukocyte Esterase Urine RBC Urine WBC Ur Epithelial Cells Hyaline Casts Urine Mucus Ur Random Sodium Ur Random Potassium Ur Random Chloride Urine Creatinine Active Medications Generic Name Dose Route Start Last Admin Trade Name Freq PRN Reason Stop Dose Admin Albuterol/Ipratropium 1 amp 08/04/16 17:40 Duoneb - NEB Q4H PRN SHORTNESS OF BREATH Chlorhexidine Gluconate 1 applic 08/04/16 22:00 Hibiclens For Decolonization - TP HS [facility] Heparin Sodium (Porcine) 5,000 unit 08/04/16 14:00 08/04/16 16:40 Heparin - SQ 5,000 unit TID [facility] Administration Ceftriaxone Sodium 100 mls @ 200 mls/hr 08/05/16 10:00 Rocephin 2gm Ivpb (Pre-Docked) IVPB DAILY [facility] Azithromycin 250 mls @ 250 mls/hr 08/04/16 16:30 Zithromax 500mg Ivpb (Pre-Docked) IVPB DAILY [facility] Methylprednisolone Sodium Succinate 40 mg 08/04/16 16:15 08/04/16 16:37 Solu-Medrol - IVPB 40 mg DAILY [facility] Administration Mupirocin 1 applic 08/04/16 17:00 Bactroban Ointment (For Decolonization) - NS 08/09/16 16:59 BID [facility] Pneumococcal 13-Valent Conj Vacc 0.5 ml 08/04/16 18:00 Prevnar 13 Syringe - IM 08/04/16 18:01 .ONCE ONE ASSESSMENT/PLAN: -Acute hypoxic respiratory failure secondary pneumonia , ards, cxr shows b/l interstial infiltrate on BIPAP fio2 100/ i 12/ e 6/ rr 15 ECHO shows mild lv dysfunction monitor vitals monitor intake/ output on solumedrol 40mg daily antibiotics as per ID azithromycin, vanco, ceftriaxone maintain spo2 over >90 repeat abg in morning cardiology, id and pulmonology consult if respiratory distress increases will intubate the patient sepsis secondary to PNA Trend lactic acid monitor vitals monitor intake/ output follow blood, sputum, urine culture follow cbc keep map>65 -DOMENICA monitor cr avoid nephrotoxic drugs nephrology on case -Elevated trops could be demand ischemia got 324 aspirin in ed trend trop i cardiology consult -HTN on Amlodipine 10 mg qd, olmesartan 40 mg qd -DVT ppx -Heparin sq TID gi pro -FEN -No fluids, lungs fluid overloaded -electrolytes wnl - nutrition npo talked to pathologist dr cronin [phone] and got athurization of c3 and c4. Called to chemistry lab, they will send a tech to get blood work Patient is full code -Dispo -Admit to ICU Visit type - Emergency Visit Emergency Visit: Yes ED Registration Date: 08/04/16 Care time: The patient presented to the Emergency Department on the above date and was hospitalized for further evaluation of their emergent condition. - New Patient This patient is new to me today: Yes Date on this admission: 08/04/16 - Critical Care Critical Care patient: Yes Total Critical Care Time (in minutes): 45 Critical Care Statement: The care of this patient involved high complexity decision making to prevent further life threatening deterioration of the patient 's condition and/or to evalute & treat vital organ system(s) failure or risk of failure.
[2016-08-04] MEDS ORDERED: PNEUMOC 13-VAL CONJ-DIP CRM/PF 0.5 ML DISP.SYRIN IM ONE (18:00)
[2016-08-04] MEDS: MUPIROCIN 2% TOPICAL OINTMENT FOR DECOLONIZATION NS SCH ×2 (18:25→21:35)
[2016-08-04 18:48] LABS: HIV 1 & 2 AB NEGATIVE; HIV 1 AGp24 NEGATIVE
--- NOTE | 2016-08-04 19:26 | CON.CARD ---
Cardiology Consult (text) - Consultation Consultation Note: CC: sob 51 yo heavy drinker with h/o HTN, HL who presents with acute onset of sob. [place] ill earlier this week with symptoms of fevers, chills. Thought he had caught a cold from his kids. Then developed acutely worsening sob over 24-48 hours. Normally has no limitations to activity. No orthopnea, cp , palps, dizziness, le edema, bleeding no n/v/d, congestion, headache, rashes, visual disturbances, transient neurologic symptoms. + mike sx's. Patient heavy drinker states he last passed out from drinking 3 months ago. currently states he is no longer having difficulty breathing. pmhx/pshx: per hpi socail hx: former smoker, quit 10 years ago. drinks 5 drinks per day, occasionally will drink an entire bottle of scotch by himself, no illicits fam hx: no h/o cardiac problems ros: per hpi Ambulatory Orders Amlodipine Bes/Olmesartan Med [Garcia 10-40 mg Tablet] 1 each PO DAILY 08/04/16 Current Medications Albuterol/Ipratropium (Duoneb -) 1 amp NEB Q4H PRN PRN Reason: SHORTNESS OF BREATH Albuterol/Ipratropium (Duoneb -) 1 amp NEB Q6HPO [facility] Last Admin: 08/04/16 17:20 Dose: 1 amp Chlorhexidine Gluconate (Hibiclens For Decolonization -) 1 applic TP HS [facility] Heparin Sodium (Porcine) (Heparin -) 5,000 unit SQ TID [facility] Last Admin: 08/04/16 16:40 Dose: 5,000 unit Ceftriaxone Sodium (Rocephin 2gm Ivpb (Pre-Docked)) 100 mls @ 200 mls/hr IVPB DAILY [facility] Azithromycin (Zithromax 500mg Ivpb (Pre-Docked)) 250 mls @ 250 mls/hr IVPB DAILY [facility] Methylprednisolone Sodium Succinate (Solu-Medrol -) 40 mg IVPB DAILY [facility] Last Admin: 08/04/16 16:37 Dose: 40 mg Mupirocin (Bactroban Ointment (For Decolonization) -) 1 applic NS BID [facility] Stop: 08/09/16 16:59 Last Admin: 08/04/16 18:25 Dose: 1 inch Pantoprazole Sodium (Protonix -) 40 mg PO DAILY [facility] Vital Signs Period Temp Pulse Resp BP Sys/[place] Pulse Ox Last 24 Hr 97.6 F-99 F 96-123 18-33 109-168/81-101 65-100 Intake & Output 08/02/16 08/03/16 08/04/16 08/05/16 07:59 07:59 07:59 07:59 Intake Total 800 Output Total 400 500 Balance -400 300 Weight 227 lb 247 lb Nad, calm, diaphoretic jvd flat, neck supple bipap on diffuse rales, nl effort. tachypneic tachycardic, regular. nl s1, s2 no mrg + bs soft nt nd ext without e/c/c + dp/pt no carotid bruits no jaundice CBC, BMP 08/04/16 12:45 08/04/16 12:45 Laboratory Tests 08/04/16 08/04/16 08/04/16 03:45 03:45 05:44 ESR BUN 35 H Creatinine 2.3 H Hemoglobin A1c % Lactic Acid Magnesium 2.2 Total Bilirubin 0.4 AST 29 ALT 24 Alkaline Phosphatase 94 Creatine Kinase 189 CK-MB (CK-2) 3.691 H Troponin I 0.07 H B-Natriuretic Peptide 1197.24 H Albumin 2.9 L Urine Protein 2+ H Urine Glucose (UA) 1+ H Urine Blood 1+ H HIV 1&2 Antibody Screen 08/04/16 08/04/16 08/04/16 07:57 08:00 09:44 ESR 75 H BUN Creatinine Hemoglobin A1c % 6.4 H Lactic Acid 2.217 H* Magnesium Total Bilirubin AST ALT Alkaline Phosphatase Creatine Kinase CK-MB (CK-2) Troponin I B-Natriuretic Peptide Albumin Urine Protein Urine Glucose (UA) Urine Blood HIV 1&2 Antibody Screen 08/04/16 17:30 ESR BUN Creatinine Hemoglobin A1c % Lactic Acid Magnesium Total Bilirubin AST ALT Alkaline Phosphatase Creatine Kinase CK-MB (CK-2) Troponin I B-Natriuretic Peptide Albumin Urine Protein Urine Glucose (UA) Urine Blood HIV 1&2 Antibody Screen Negative Laboratory Tests 08/04/16 08/04/16 08/04/16 05:44 08:30 09:44 Lactic Acid Creatine Kinase 192 CK-MB (CK-2) 3.824 H Troponin I 0.24 H D C-Reactive Protein Triglycerides 145 Cholesterol 178 Total LDL Cholesterol 95 HDL Cholesterol 43 Urine Protein 2+ H 08/04/16 08/04/16 08/04/16 09:44 18:30 18:30 Lactic Acid 1.262 Creatine Kinase CK-MB (CK-2) Troponin I 0.25 H C-Reactive Protein 27.9 H Triglycerides Cholesterol Total LDL Cholesterol HDL Cholesterol Urine Protein 08/04/16 18:30 Lactic Acid Creatine Kinase CK-MB (CK-2) Troponin I C-Reactive Protein 28.5 H D Triglycerides Cholesterol Total LDL Cholesterol HDL Cholesterol Urine Protein EKG sinus tach, non-specific lateral STT wave abnormalities, likely strain tele: sinus tach echo: mild lv dilation, mild reduced LV function. nl rv 1+ ar, mr, tr. Mild ao dilation. CXR: diffuse infiltrates, mild sparing of the ADITYA. No effusions. by my review ? ards pattern 51 yo heavy drinker with h/o HTN, HL who presents with acute onset of sob. SOB - Likely not cardiac etiology. Infection vs. aspiration. Ongoing management per pmd, pulm. CXR not consistent with pulmonary edema, would not diurese. Mild lv dysfunction - May be acute in the setting of illness/infection vs. chronic secondary to heavy etoh use. - Currently euvolemic. - HF regimen as mentioned below. - Recommend repeat echo and recommend stress test as outpatient once clinical condition improves. Elevated troponin - Intermediate elevation not c/w ACS. Likely secondary to demand. May have underlying CAD and would benefit from stress testing as outpatient. Does not need urgent ischemic work up. - will start asa, statin. HTN - reasonable blood pressure control. Ok to hold olmesartan in setting of renal dysfunction. Would start metoprolol if no concern for bronchospasm per pulm. Otherwise hydralazine. CKD with proteinuria - unknown baseline. mgm't per renal. etoh - monitor for withdrawal. - cessation counseling.
--- NOTE | 2016-08-04 20:51 | CONSULT ---
Consult Consult Specialty:: PULM / CRITICAL CARE MEDICINE Referred by:: Dr Sanchez Reason for Consultation:: Hypoxic respiratory failure - History of Present Illness Chief Complaint: SOB History of Present Illness: 51 male, former smoker with HTN and HLD who presented to the ED with 2 days of SOB and productive cough (yellowish sputum), no fevers or chills. No recent travel, his kids do have active URIs. In the ED he was hypoxic requiring NRB. He was given Lasix, nebs and steroids without much improvement. His WBC is 24, CXR shows dense b/l infiltrates with crisp hemidiaphrams. Flu swab was negative , HIV was negative. He was placed on NIPPV, started on Azithro/Vanc/CTX and transferred to the ICU for management. - History Source History Provided By: Patient, Medical Record Limitations to Obtaining History: No Limitations - Past Medical History Cardio/Vascular: Yes: HTN, Hyperlipdemia - Alcohol/Substance Use Hx Alcohol Use: No - Smoking History Smoking history: Former smoker Have you smoked in the past 12 months: No If you are a former smoker, when did you quit?: 10 years - Social History Usual Living Arrangement: With Child Home Medications - Allergies Allergies/Adverse Reactions: Allergies Allergy/AdvReac Type Severity Reaction Status Date / Time No Known Allergies Allergy Verified 08/04/16 04:03 - Home Medications Home Medications: Ambulatory Orders Amlodipine Bes/Olmesartan Med [Garcia 10-40 mg Tablet] 1 each PO DAILY 08/04/16 Family Disease History - Family Disease History Family History: Unremarkable Review of Systems - Review of Systems Constitutional: reports: Malaise, Weakness. denies: Chills, Fever Eyes: reports: No Symptoms HENT: reports: No Symptoms Respiratory: reports: Cough, SOB on Exertion Genitourinary: reports: No Symptoms Musculoskeletal: reports: No Symptoms Integumentary: reports: No Symptoms Neurological: reports: Headache Endocrine: reports: No Symptoms Hematology/Lymphatic: reports: No Symptoms Physical Exam Vital Signs: Vital Signs Temperature 98 F 08/04/16 18:00 Pulse Rate 102 H 08/04/16 20:00 Respiratory Rate 36 H 08/04/16 20:00 Blood Pressure 152/102 08/04/16 20:00 O2 Sat by Pulse Oximetry (%) 97 08/04/16 18:50 Constitutional: Yes: Obese Eyes: Yes: WNL HENT: Yes: WNL Neck: Yes: WNL Cardiovascular: Yes: Tachycardia, S1, S2 Respiratory: Yes: Accessory Muscle Use, On BiPap, Rhonchi Gastrointestinal: Yes: Soft, Abdomen, Obese Extremities: Yes: WNL Edema: No Peripheral Pulses WNL: Yes Integumentary: Yes: WNL Labs: CBC, BMP 08/04/16 12:45 08/04/16 12:45 Imaging - Results Chest X-ray: Report Reviewed, Image Reviewed EKG: Report Reviewed Problem List - Problems (1) DOMENICA (acute kidney injury) Code(s): N17.9 - ACUTE KIDNEY FAILURE, UNSPECIFIED (2) ARDS (adult respiratory distress syndrome) Code(s): J80 - ACUTE RESPIRATORY DISTRESS SYNDROME (3) Acute hypoxemic respiratory failure Code(s): J96.01 - ACUTE RESPIRATORY FAILURE WITH HYPOXIA (4) HTN (hypertension) Code(s): I10 - ESSENTIAL (PRIMARY) HYPERTENSION Assessment/Plan Hypoxemia, Severe ARDS (P:F <100) Multilobar Pneumonia - looks like Legionella or S.Pneumo (Urine Ags are pending) DOMENICA HTN -Continue NIPPV. He has high FiO2 requirements and severe ARDS, but he is able to keep up right now. If he tires out he will need to be intubated and will likely require significant ventilatory support, deep sedation, ect. -Nebs and steroids for now, but can consider d/c - he has no obstructive lung disease -NPO for likely intubation -Abx per ID - Vanc/Azith/CXT - f/u cultures -Gentle IVF - DOMENICA is likely pre-renal, he looks dry -BP control -GI and DVT PPx Critically Ill Thank you for this interesting consult 60min Franky Clark Pulm/Critical Care [employer]
[2016-08-04] MEDS: CHLORHEXIDINE GLUCONATE 4% CLEANSER FOR DECOLONIZATION TP SCH (21:35)
[2016-08-05] MEDS: ALBUTEROL SO4 2.5/IPRATROPIUM 0.5 INH SOL 3 ML VIAL.NEB. NEB SCH ×4 (00:23→17:40)
--- NOTE | 2016-08-05 06:56 | PN ---
Progress Note, Physician Chief Complaint: ID ICU follow up for this 51 year old male admitted with 3 days history of worsening SOB found to be severely hypoxic in the ER with WBC count of 24,000 in the absence of fever. Patient tested negative for HIV here and no demograhic issues suggesting a cause to his bilateral pulmonary infiltrates. His son age 13 ill this week at home with respiratory illness. He is on acute renal failure. He is making urine and got alot of Lazis here thought to have CHF. empiric therapy Vancomycin 1.75 gram Ceftriaxone Azithromcyin. Cultures pending - Current Medication List Current Medications: Active Medications Albuterol/Ipratropium (Duoneb -) 1 amp NEB Q4H PRN PRN Reason: SHORTNESS OF BREATH Albuterol/Ipratropium (Duoneb -) 1 amp NEB Q6HPO [facility] Last Admin: 08/05/16 06:26 Dose: 1 amp Chlorhexidine Gluconate (Hibiclens For Decolonization -) 1 applic TP HS [facility] Last Admin: 08/04/16 21:35 Dose: 1 applic Heparin Sodium (Porcine) (Heparin -) 5,000 unit SQ TID [facility] Last Admin: 08/04/16 21:35 Dose: 5,000 unit Ceftriaxone Sodium (Rocephin 2gm Ivpb (Pre-Docked)) 100 mls @ 200 mls/hr IVPB DAILY [facility] Azithromycin (Zithromax 500mg Ivpb (Pre-Docked)) 250 mls @ 250 mls/hr IVPB DAILY [facility] Methylprednisolone Sodium Succinate (Solu-Medrol -) 40 mg IVPB DAILY [facility] Last Admin: 08/04/16 16:37 Dose: 40 mg Mupirocin (Bactroban Ointment (For Decolonization) -) 1 applic NS BID [facility] Stop: 08/09/16 16:59 Last Admin: 08/04/16 21:35 Dose: 1 inch Pantoprazole Sodium (Protonix -) 40 mg PO DAILY [facility] - Objective Vital Signs: Vital Signs Temperature 97.8 F 08/05/16 00:00 Pulse Rate 93 H 08/05/16 04:00 Respiratory Rate 28 H 08/05/16 04:00 Blood Pressure 140/98 08/05/16 04:00 O2 Sat by Pulse Oximetry (%) 98 08/05/16 05:15 Constitutional: Yes: Well Nourished, Moderate Distress Neck: Yes: WNL, Supple Cardiovascular: Yes: Tachycardia, S1, S2. No: Murmur Respiratory: Yes: WNL, Regular, CTA Bilaterally, Rales, Rhonchi Gastrointestinal: Yes: WNL, Normal Bowel Sounds, Soft. No: Splenomegaly, Tenderness, Tenderness, Rebound Extremities: No: Cold, Cool, Cyanosis Edema: No Labs: CBC, BMP 08/04/16 12:45 INR, PTT INR 1.12 (0.82-1.09) 08/04/16 03:45 Assessment/Plan Microbiology 08/04/16 07:57 Nasopharyngeal Swab Influenza Types A,B Antigen (SONIA) - Final 08/04/16 07:57 Nasopharyngeal Swab - Final Laboratory Tests 08/04/16 08/04/16 08/04/16 03:45 03:45 05:44 WBC Hgb Plt Count ESR BUN 35 H Lactic Acid Total Bilirubin 0.4 AST 29 ALT 24 Alkaline Phosphatase 94 Troponin I 0.07 H B-Natriuretic Peptide 1197.24 H Total Protein 6.9 Albumin 2.9 L Urine RBC 1 Urine WBC 2 HIV 1&2 Antibody Screen HIV P24 Antigen 08/04/16 08/04/16 08/04/16 08:00 12:45 17:30 WBC 24.4 H Hgb 15.2 Plt Count 229 D ESR BUN Lactic Acid 2.217 H* Total Bilirubin AST ALT Alkaline Phosphatase Troponin I B-Natriuretic Peptide Total Protein Albumin Urine RBC Urine WBC HIV 1&2 Antibody Screen Negative HIV P24 Antigen Negative 08/04/16 18:30 WBC Hgb Plt Count ESR 67 H BUN Lactic Acid Total Bilirubin AST ALT Alkaline Phosphatase Troponin I B-Natriuretic Peptide Total Protein Albumin Urine RBC Urine WBC HIV 1&2 Antibody Screen HIV P24 Antigen Assessment 51 year old male with hypoxemia leukocytosis and diffuse bilateral pulmonary infiltrates. Found to be in Acute renal failrure. I favor an infectious etiology to his illness given the pneumonia leukocytosis and abrupt onset of disease over only few days. With regard to vasculitis agree with serology for "pulmonary renal syndrome" however not sure this would come about over such a short time period. His urinary sediment does not look suggestive for glomerulonephritis. Viral disease in the differential diagnosis though WBC elevation of this magnitude seems against. Legionella could certainly do this and a screening Ag sent. Seems to rapid for Mycobacterial disease and he has no reason to have Histoplasmosis or Crypt. 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
--- NOTE | 2016-08-05 06:57 | PN ---
Progress Note (short form) - Note Progress Note: PULM / CRITICAL CARE MEDICINE PROGRESS NOTE: Pt seen and examined in the ICU 24 HOUR EVENTS: -Still requiring 100% FiO2 on BiPAP, but still able to keep up. RR in 20s. Urine antigens and viral PCR pending. Current Medications Albuterol/Ipratropium (Duoneb -) 1 amp NEB Q4H PRN PRN Reason: SHORTNESS OF BREATH Albuterol/Ipratropium (Duoneb -) 1 amp NEB Q6HPO [facility] Last Admin: 08/05/16 06:26 Dose: 1 amp Chlorhexidine Gluconate (Hibiclens For Decolonization -) 1 applic TP HS [facility] Last Admin: 08/04/16 21:35 Dose: 1 applic Heparin Sodium (Porcine) (Heparin -) 5,000 unit SQ TID [facility] Last Admin: 08/04/16 21:35 Dose: 5,000 unit Ceftriaxone Sodium (Rocephin 2gm Ivpb (Pre-Docked)) 100 mls @ 200 mls/hr IVPB DAILY [facility] Azithromycin (Zithromax 500mg Ivpb (Pre-Docked)) 250 mls @ 250 mls/hr IVPB DAILY [facility] Methylprednisolone Sodium Succinate (Solu-Medrol -) 40 mg IVPB DAILY [facility] Last Admin: 08/04/16 16:37 Dose: 40 mg Mupirocin (Bactroban Ointment (For Decolonization) -) 1 applic NS BID [facility] Stop: 08/09/16 16:59 Last Admin: 08/04/16 21:35 Dose: 1 inch Pantoprazole Sodium (Protonix -) 40 mg PO DAILY [facility] Vital Signs Temp 97.8 F 08/05/16 00:00 Pulse 93 H 08/05/16 04:00 Resp 28 H 08/05/16 04:00 BP 140/98 08/05/16 04:00 Pulse Ox 98 08/05/16 05:15 Intake & Output 08/04/16 08/04/16 08/05/16 06:59 18:59 06:59 Intake Total 800 300 Output Total 123 466 5515 Balance -400 300 -1200 Weight 102.965 kg 112.037 kg 109 kg Intake: IVPB 800 Oral 300 Output: Urine 790 176 3296 Void 849 944 8824 Other: Voiding Method Urinal Urinal Urinal Height 6 ft 6 ft Body Mass Index (BMI) 30.7 33.5 Weight Measurement Method Stated by Patient Built in [facility] Weight Measurement Method Est/Stated by Patient EXAM: Neuro: alert Chest: rhonchi, no wheezing Heart: RRR Abd: obese, soft Ext: warm, no edema CBC, BMP 08/04/16 12:45 Microbiology 08/04/16 07:57 Influenza Types A,B Antigen (SONIA) - Final Nasopharyngeal Swab - Final Imaging - Results Chest X-ray: Report Reviewed, Image Reviewed - b/l infiltrates, no effusions EKG: Report Reviewed Problem List - Problems (1) DOMENICA (acute kidney injury) Code(s): N17.9 - ACUTE KIDNEY FAILURE, UNSPECIFIED (2) ARDS (adult respiratory distress syndrome) Code(s): J80 - ACUTE RESPIRATORY DISTRESS SYNDROME (3) Acute hypoxemic respiratory failure Code(s): J96.01 - ACUTE RESPIRATORY FAILURE WITH HYPOXIA (4) HTN (hypertension) Code(s): I10 - ESSENTIAL (PRIMARY) HYPERTENSION Assessment/Plan Hypoxemia, Severe ARDS (P:F <100) Multilobar Pneumonia - looks like Legionella or S.Pneumo (Urine Ags are pending) DOMENICA HTN -Continue NIPPV. He has high FiO2 requirements and severe ARDS, but he is able to keep up right now. If he tires out he will need to be intubated and will likely require significant ventilatory support, deep sedation, ect. -Vasculitic process (DAH) less likely, but would benefit from bronchoscopy if he is intubated and is stable enough -Nebs and steroids for now, but can consider d/c - he has no obstructive lung disease -NPO for possible intubation -Abx per ID - Vanc/Azith/CXT - f/u cultures -Gentle IVF - DOMENICA is likely pre-renal, he looks dry -BP control -GI and DVT PPx Critically Ill 35min Franky Clark Pulm/Critical Care SIGN DESIGNER Problem List - Problems (1) DOMENICA (acute kidney injury) Code(s): N17.9 - ACUTE KIDNEY FAILURE, UNSPECIFIED (2) ARDS (adult respiratory distress syndrome) Code(s): J80 - ACUTE RESPIRATORY DISTRESS SYNDROME (3) Acute hypoxemic respiratory failure Code(s): J96.01 - ACUTE RESPIRATORY FAILURE WITH HYPOXIA (4) HTN (hypertension) Code(s): I10 - ESSENTIAL (PRIMARY) HYPERTENSION
[2016-08-05 06:58] LABS: ALBUMIN 2.4 g/dl (3.4-5.0); CALCIUM 8.4 mg/dL (8.5-10.1); MAGNESIUM 2.8 mg/dL (1.8-2.4)
[2016-08-05 07:00] LABS: BILIRUBIN,TOTAL 0.3 mg/dL (0.2-1.0); CREATININE 1.9 mg/dL (0.7-1.3); TOT PROT 6.2 g/dl (6.4-8.2)
[2016-08-05] MEDS: HEPARIN NA (PORCINE) 5,000 UNITS/ML 1ML VIAL SQ SCH ×3 (07:11→23:15)
--- NOTE | 2016-08-05 08:05 | PN ---
Physical Exam: SUBJECTIVE: Patient seen and examined, states he is feeling better, but still dependent OBJECTIVE: Vital Signs Period Temp Pulse Resp BP Sys/[place] Pulse Ox Last 24 Hr 97.8 F-99 F 88-109 24-36 122-152/82-102 93-99 GENERAL: The patient is awake, alert, and fully oriented, in no acute distress.on Bipap Fio2 100%. Diaphoretic. HEAD: Normal with no signs of trauma. EYES: PERRL, extraocular movements intact, sclera anicteric, conjunctiva clear. No ptosis. ENT: Ears normal, nares patent, oropharynx clear without exudates, moist mucous membranes. NECK: Trachea midline, full range of motion, supple. LUNGS: Breath sounds diminished, bilaterally, no wheezes, no crackles, no accessory muscle use. HEART: Regular rate and rhythm, S1, S2 without murmur, rub or gallop. ABDOMEN: Soft, nontender, nondistended, normoactive bowel sounds, no guarding, no rebound, no hepatosplenomegaly, no masses. EXTREMITIES: 2+ pulses, warm, well-perfused, no edema. NEUROLOGICAL: Cranial nerves II through XII grossly intact. Normal speech, gait not observed. PSYCH: Normal mood, normal affect. SKIN: Warm, dry, normal turgor, no rashes or lesions noted Laboratory Results - last 24 hr 08/04/16 08/04/16 08/04/16 07:57 08:00 08:30 WBC RBC Hgb Hct MCV MCHC RDW Plt Count MPV Neutrophils % Lymphocytes % Monocytes % Eosinophils % Basophils % ESR Sodium Potassium Chloride Carbon Dioxide Anion Gap BUN Creatinine Creat Clearance w eGFR Random Glucose Hemoglobin A1c % 6.4 H Lactic Acid 2.217 H* Calcium Phosphorus Magnesium Total Bilirubin AST ALT Alkaline Phosphatase Creatine Kinase Creatine Kinase Index CK-MB (CK-2) CK-MB (CK-2) Rel Index Troponin I C-Reactive Protein Total Protein Albumin Triglycerides 145 Cholesterol 178 Total LDL Cholesterol 95 HDL Cholesterol 43 HIV 1&2 Antibody Screen HIV P24 Antigen 08/04/16 08/04/16 08/04/16 09:44 09:44 09:44 WBC RBC Hgb Hct MCV MCHC RDW Plt Count MPV Neutrophils % Lymphocytes % Monocytes % Eosinophils % Basophils % ESR 75 H Sodium Potassium Chloride Carbon Dioxide Anion Gap BUN Creatinine Creat Clearance w eGFR Random Glucose Hemoglobin A1c % Lactic Acid Calcium Phosphorus Magnesium Total Bilirubin AST ALT Alkaline Phosphatase Creatine Kinase 192 Creatine Kinase Index 1.9 CK-MB (CK-2) 3.824 H CK-MB (CK-2) Rel Index Troponin I 0.24 H D C-Reactive Protein 27.9 H Total Protein Albumin Triglycerides Cholesterol Total LDL Cholesterol HDL Cholesterol HIV 1&2 Antibody Screen HIV P24 Antigen 08/04/16 08/04/16 08/04/16 09:44 12:45 12:45 WBC 24.4 H RBC 5.21 Hgb 15.2 Hct 46.0 MCV 88.2 MCHC 33.0 RDW 14.4 Plt Count 229 D MPV 10.1 Neutrophils % 90.4 H Lymphocytes % 5.6 L Monocytes % 3.5 L Eosinophils % 0.3 Basophils % 0.2 ESR Sodium 143 Potassium 3.8 Chloride 105 Carbon Dioxide 25 Anion Gap 13 BUN 40 H Creatinine 2.7 H Creat Clearance w eGFR 25.14 Random Glucose 152 H D Hemoglobin A1c % Lactic Acid Calcium 8.2 L Phosphorus Magnesium Total Bilirubin 0.4 AST 30 ALT 24 Alkaline Phosphatase 81 Creatine Kinase Creatine Kinase Index CK-MB (CK-2) CK-MB (CK-2) Rel Index Cancelled Troponin I C-Reactive Protein Total Protein 6.3 L Albumin 2.6 L Triglycerides Cholesterol Total LDL Cholesterol HDL Cholesterol HIV 1&2 Antibody Screen HIV P24 Antigen 08/04/16 08/04/16 08/04/16 12:45 17:30 18:30 WBC RBC Hgb Hct MCV MCHC RDW Plt Count MPV Neutrophils % Lymphocytes % Monocytes % Eosinophils % Basophils % ESR Sodium Potassium Chloride Carbon Dioxide Anion Gap BUN Creatinine Creat Clearance w eGFR Random Glucose Hemoglobin A1c % Lactic Acid 2.171 H* 1.262 Calcium Phosphorus Magnesium Total Bilirubin AST ALT Alkaline Phosphatase Creatine Kinase Creatine Kinase Index CK-MB (CK-2) CK-MB (CK-2) Rel Index Troponin I C-Reactive Protein Total Protein Albumin Triglycerides Cholesterol Total LDL Cholesterol HDL Cholesterol HIV 1&2 Antibody Screen Negative HIV P24 Antigen Negative 08/04/16 08/04/16 08/04/16 18:30 18:30 18:30 WBC RBC Hgb Hct MCV MCHC RDW Plt Count MPV Neutrophils % Lymphocytes % Monocytes % Eosinophils % Basophils % ESR 67 H Sodium Potassium Chloride Carbon Dioxide Anion Gap BUN Creatinine Creat Clearance w eGFR Random Glucose Hemoglobin A1c % Lactic Acid Calcium Phosphorus Magnesium Total Bilirubin AST ALT Alkaline Phosphatase Creatine Kinase Creatine Kinase Index CK-MB (CK-2) CK-MB (CK-2) Rel Index Troponin I 0.25 H C-Reactive Protein 28.5 H D Total Protein Albumin Triglycerides Cholesterol Total LDL Cholesterol HDL Cholesterol HIV 1&2 Antibody Screen HIV P24 Antigen 08/05/16 08/05/16 08/05/16 05:00 05:00 05:00 WBC RBC Hgb Hct MCV MCHC RDW Plt Count MPV Neutrophils % Lymphocytes % Monocytes % Eosinophils % Basophils % ESR Sodium 142 Potassium 3.7 Chloride 103 Carbon Dioxide 27 Anion Gap 12 BUN 38 H Creatinine 1.9 H D Creat Clearance w eGFR 37.71 Random Glucose 217 H D Hemoglobin A1c % Lactic Acid 1.910 Calcium 8.4 L Phosphorus 4.0 Magnesium 2.8 H D Total Bilirubin 0.3 D AST 26 ALT 22 Alkaline Phosphatase 86 Creatine Kinase Creatine Kinase Index CK-MB (CK-2) CK-MB (CK-2) Rel Index Troponin I 0.11 H D C-Reactive Protein Total Protein 6.2 L Albumin 2.4 L Triglycerides Cholesterol Total LDL Cholesterol HDL Cholesterol HIV 1&2 Antibody Screen HIV P24 Antigen Active Medications Generic Name Dose Route Start Last Admin Trade Name Freq PRN Reason Stop Dose Admin Albuterol/Ipratropium 1 amp 08/04/16 17:40 Duoneb - NEB Q4H PRN SHORTNESS OF BREATH Albuterol/Ipratropium 1 amp 08/04/16 18:00 08/05/16 06:26 Duoneb - NEB 1 amp Q6HPO [facility] Administration Chlorhexidine Gluconate 1 applic 08/04/16 22:00 08/04/16 21:35 Hibiclens For Decolonization - TP 1 applic HS [facility] Administration Heparin Sodium (Porcine) 5,000 unit 08/04/16 14:00 08/05/16 07:11 Heparin - SQ 5,000 unit TID [facility] Administration Ceftriaxone Sodium 100 mls @ 200 mls/hr 08/05/16 10:00 Rocephin 2gm Ivpb (Pre-Docked) IVPB DAILY COUNTS INCLUDE 234 BEDS AT THE [facility] Azithromycin 250 mls @ 250 mls/hr 08/04/16 16:30 Zithromax 500mg Ivpb (Pre-Docked) IVPB DAILY COUNTS INCLUDE 234 BEDS AT THE [facility] Methylprednisolone Sodium Succinate 40 mg 08/04/16 16:15 08/04/16 16:37 Solu-Medrol - IVPB 40 mg DAILY [facility] Administration Mupirocin 1 applic 08/04/16 17:00 08/04/16 21:35 Bactroban Ointment (For Decolonization) - NS 08/09/16 16:59 1 inch BID [facility] Administration Pantoprazole Sodium 40 mg 08/05/16 10:00 Protonix - PO DAILY [facility] ASSESSMENT/PLAN: ID, Nephrology, Cardiology and Pulmonary consult appreciated. Acute pulmonary edema with demand ischemia, and acute renal failure which occured after patient had an episode of severely uncontrolled HTN 2 days prior. Appears to be hypertensive emergency with flash pulmonary edema and possibly superimposed pneumonia as patient has a white count of 22K. CBC for today still pending however patient has been placed on broad spectrum antibiotics. Patients repeat CXR and BMP show improvement in lungs and renal function. Problem List - Problems (1) Pulmonary edema Assessment/Plan: Possibly secondary to HTN emergency vs infectious etiology mild ventricular dysfunction possible ARDS continue BIPAP fio2 titrated down to 90% and patient continues to saturate well. Code(s): J81.1 - CHRONIC PULMONARY EDEMA Qualifiers: Chronicity: acute Qualified Code(s): J81.0 - Acute pulmonary edema (2) DOMENICA (acute kidney injury) Assessment/Plan: CR trending down 2.7--->1.9 FeNa .11 etiology most likely prerenal Continue to monitor BMP Follow renal studies to r/o vasculitis Continue Prednisone Code(s): N17.9 - ACUTE KIDNEY FAILURE, UNSPECIFIED (3) Elevated troponin Assessment/Plan: Most likely secondary to demand ischemia currently trending down as patient is diuresis and getting good oxygenation on BIPAP No ACS. Code(s): R74.8 - ABNORMAL LEVELS OF OTHER SERUM ENZYMES (4) Hypertensive emergency Assessment/Plan: Resolved labetalol PRN if SBP>180 Code(s): I16.1 - HYPERTENSIVE EMERGENCY (5) HTN (hypertension) Assessment/Plan: Willl start metoprolol 25mg BID Hold lorsartan for DOMENICA Atorvastatin 20mg daily Aspirin 81mg daily Code(s): I10 - ESSENTIAL (PRIMARY) HYPERTENSION (6) High anion gap metabolic acidosis Assessment/Plan: Resolved most likely secondary to resolving DOMENICA Code(s): E87.2 - ACIDOSIS (7) SIRS (systemic inflammatory response syndrome) Assessment/Plan: Criteria met non-infectious etiology vs infectious. Code(s): R65.10 - SIRS OF NON-INFECTIOUS ORIGIN W/O ACUTE ORGAN DYSFUNCTION Visit type - Emergency Visit Emergency Visit: Yes ED Registration Date: 08/04/16 Care time: The patient presented to the Emergency Department on the above date and was hospitalized for further evaluation of their emergent condition. - New Patient This patient is new to me today: No - Critical Care Critical Care patient: Yes Total Critical Care Time (in minutes): 50 Critical Care Statement: The care of this patient involved high complexity decision making to prevent further life threatening deterioration of the patient 's condition and/or to evalute & treat vital organ system(s) failure or risk of failure.
[2016-08-05] MEDS: CEFTRIAXONE 100 ML IVPB SCH (09:40)
[2016-08-05] MEDS: METOPROLOL TARTRATE 25 MG TABLET (FP) PO SCH ×2 (09:40→23:15)
[2016-08-05] MEDS: PANTOPRAZOLE 40 MG TABLET (FP) PO SCH (09:40)
[2016-08-05] MEDS: AZITHROMYCIN IVPB 250 ML IVPB SCH (09:40)
[2016-08-05] MEDS: methylPREDNISolone NA SUCC 40 MG/1 ML VIAL IVPB SCH (09:40)
[2016-08-05] MEDS: MUPIROCIN 2% TOPICAL OINTMENT FOR DECOLONIZATION NS SCH ×2 (09:43→23:13)
[2016-08-05] MEDS: ASPIRIN 81 MG CHEWABLE TABLETS PO SCH (09:43)
[2016-08-05] MEDS ORDERED: amLODIPine BESYLATE 10 MG TABLET (FP) PO SCH (10:00)
--- NOTE | 2016-08-05 10:03 | PN ---
Progress Note (short form) - Note Progress Note: RENAL Pt is awake and alert has BiPAP on Last Vital Signs Temp Pulse Resp BP Pulse Ox 97.8 F 93 H 28 H 132/82 97 08/05/16 00:00 08/05/16 09:32 08/05/16 08:00 08/05/16 08:00 08/05/16 09:32 lungs bilat rhonchi cvs s1s2 rr abd soft ext no edema neuro a+ox3 CBC, BMP 08/05/16 05:00 Current Medications Generic Name Dose Route Start Last Admin Trade Name Freq PRN Reason Stop Dose Admin Albuterol/Ipratropium 1 amp 08/04/16 17:40 Duoneb - NEB Q4H PRN SHORTNESS OF BREATH Albuterol/Ipratropium 1 amp 08/04/16 18:00 08/05/16 06:26 Duoneb - NEB 1 amp Q6HPO [facility] Administration Aspirin 81 mg 08/05/16 10:00 08/05/16 09:43 Asa - PO 81 mg DAILY [facility] Administration Atorvastatin Calcium 20 mg 08/05/16 22:00 Lipitor - PO HS [facility] Chlorhexidine Gluconate 1 applic 08/04/16 22:00 08/04/16 21:35 Hibiclens For Decolonization - TP 1 applic HS [facility] Administration Heparin Sodium (Porcine) 5,000 unit 08/04/16 14:00 08/05/16 07:11 Heparin - SQ 5,000 unit TID [facility] Administration Ceftriaxone Sodium 100 mls @ 200 mls/hr 08/05/16 10:00 08/05/16 09:40 Rocephin 2gm Ivpb (Pre-Docked) IVPB 200 mls/hr DAILY [facility] Administration Azithromycin 250 mls @ 250 mls/hr 08/04/16 16:30 08/05/16 09:40 Zithromax 500mg Ivpb (Pre-Docked) IVPB 250 mls/hr DAILY [facility] Administration Methylprednisolone Sodium Succinate 40 mg 08/04/16 16:15 08/05/16 09:40 Solu-Medrol - IVPB 40 mg DAILY [facility] Administration Metoprolol Tartrate 25 mg 08/05/16 10:00 08/05/16 09:40 Lopressor - PO 25 mg BID [facility] Administration Mupirocin 1 applic 08/04/16 17:00 08/05/16 09:43 Bactroban Ointment (For Decolonization) - NS 08/09/16 16:59 1 inch BID [facility] Administration Pantoprazole Sodium 40 mg 08/05/16 10:00 08/05/16 09:40 Protonix - PO 40 mg DAILY [facility] Administration CXR report- "worse" IMPRESSION DOMENICA seems slightly better has proteinuria which could be overflow but may also be associated with ckd bilateral infiltrates that are "worse" by cxr severe hypoxia requiring bipap at 90 percent hematuria _ vasculitic PLAN agree with current management on azithro for atypical coverage vasculitis work up in progress though I doubt this is the underlying diagnosis check aso titer MV
[2016-08-05 10:04] LABS: BASOPHIL 0.5 % (0-2.0); MCHC 32.6 g/dl (32.0-35.9); MEAN CELL VOLUME 89.1 fl (80-96); NEUTROPHILS 91.7 % (42.8-82.8); PLATELET COUNT 219 K/MM3 (134-434); RDW 14.4 % (11.9-15.9); WHITE BLOOD COUNT 16.1 K/mm3 (4.0-10.0)
--- NOTE | 2016-08-05 16:27 | EKG ---
Test Reason : Blood Pressure : / mmHG Vent. Rate : 101 BPM Atrial Rate : 101 BPM P-R Int : 150 ms QRS Dur : 098 ms QT Int : 402 ms P-R-T Axes : 059 007 062 degrees QTc Int : 521 ms SINUS TACHYCARDIA NONSPECIFIC T WAVE ABNORMALITY PROLONGED QT ABNORMAL ECG WHEN COMPARED WITH ECG OF 04-AUG-2016 03:57, ST NO LONGER DEPRESSED IN LATERAL LEADS Confirmed by UMU MAYNARD MD ([id number]) on 08/05/2016 4:27:17 PM Referred By: Confirmed By:UMU MAYNARD MD
--- NOTE | 2016-08-05 17:55 | PN ---
Progress Note, Physician History of Present Illness: Breathing is improved On BIPAP - Current Medication List Current Medications: Active Medications Albuterol/Ipratropium (Duoneb -) 1 amp NEB Q4H PRN PRN Reason: SHORTNESS OF BREATH Albuterol/Ipratropium (Duoneb -) 1 amp NEB Q6HPO [facility] Last Admin: 08/05/16 17:40 Dose: 1 amp Aspirin (Asa -) 81 mg PO DAILY [facility] Last Admin: 08/05/16 09:43 Dose: 81 mg Atorvastatin Calcium (Lipitor -) 20 mg PO HS [facility] Chlorhexidine Gluconate (Hibiclens For Decolonization -) 1 applic TP HS [facility] Last Admin: 08/04/16 21:35 Dose: 1 applic Heparin Sodium (Porcine) (Heparin -) 5,000 unit SQ TID [facility] Last Admin: 08/05/16 13:34 Dose: 5,000 unit Ceftriaxone Sodium (Rocephin 2gm Ivpb (Pre-Docked)) 100 mls @ 200 mls/hr IVPB DAILY [facility] Last Admin: 08/05/16 09:40 Dose: 200 mls/hr Azithromycin (Zithromax 500mg Ivpb (Pre-Docked)) 250 mls @ 250 mls/hr IVPB DAILY [facility] Last Admin: 08/05/16 09:40 Dose: 250 mls/hr Methylprednisolone Sodium Succinate (Solu-Medrol -) 40 mg IVPB DAILY [facility] Last Admin: 08/05/16 09:40 Dose: 40 mg Metoprolol Tartrate (Lopressor -) 25 mg PO BID [facility] Last Admin: 08/05/16 09:40 Dose: 25 mg Mupirocin (Bactroban Ointment (For Decolonization) -) 1 applic NS BID [facility] Stop: 08/09/16 16:59 Last Admin: 08/05/16 09:43 Dose: 1 inch Pantoprazole Sodium (Protonix -) 40 mg PO DAILY [facility] Last Admin: 08/05/16 09:40 Dose: 40 mg - Objective Vital Signs: Vital Signs Temperature 98 F 08/05/16 10:00 Pulse Rate 98 H 08/05/16 16:00 Respiratory Rate 28 H 08/05/16 16:00 Blood Pressure 134/92 08/05/16 16:00 O2 Sat by Pulse Oximetry (%) 99 08/05/16 17:39 Constitutional: Yes: No Distress, Calm Eyes: Yes: WNL HENT: Yes: WNL Neck: Yes: WNL Cardiovascular: Yes: Regular Rate and Rhythm Respiratory: Yes: Rales, Rhonchi Gastrointestinal: Yes: Normal Bowel Sounds Extremities: Yes: WNL Edema: No Labs: CBC, BMP 08/05/16 05:00 08/05/16 05:00 INR, PTT INR 1.12 (0.82-1.09) 08/04/16 03:45 Assessment/Plan CXR: diffuse infiltrates, mild sparing of the ADITYA. No effusions. by my review ? ards pattern 51 yo heavy drinker with h/o HTN, HL who presents with acute onset of sob. SOB - Likely not cardiac etiology. Infection vs. aspiration. Ongoing management per pmd, pulm. CXR not consistent with pulmonary edema, would not diurese. Mild lv dysfunction - May be acute in the setting of illness/infection vs. chronic secondary to heavy etoh use. - Currently euvolemic. - HF regimen as mentioned below. - Recommend repeat echo and recommend stress test as outpatient once clinical condition improves. Elevated troponin - Intermediate elevation not c/w ACS. Likely secondary to demand. May have underlying CAD and would benefit from stress testing as outpatient. Does not need urgent ischemic work up. - will start asa, statin. HTN - reasonable blood pressure control. Ok to hold olmesartan in setting of renal dysfunction. Would start metoprolol if no concern for bronchospasm per pulm. Otherwise hydralazine. CKD with proteinuria - unknown baseline. mgm't per renal. etoh - monitor for withdrawal. - cessation counseling.
[2016-08-05] MEDS: ATORVASTATIN CA 20 MG TABLET (FP) PO SCH (23:15)
[2016-08-05] MEDS: CHLORHEXIDINE GLUCONATE 4% CLEANSER FOR DECOLONIZATION TP SCH (23:15)
[2016-08-06] MEDS: ALBUTEROL SO4 2.5/IPRATROPIUM 0.5 INH SOL 3 ML VIAL.NEB. NEB SCH ×4 (00:15→18:38)
[2016-08-06 06:12] LABS: MCH 29.4 pg (25.7-33.7); MCHC 32.9 g/dl (32.0-35.9); MEAN CELL VOLUME 89.3 fl (80-96); PLATELET COUNT 277 K/MM3 (134-434); RDW 14.8 % (11.9-15.9); WHITE BLOOD COUNT 18.5 K/mm3 (4.0-10.0)
[2016-08-06 06:36] LABS: CALCIUM 8.3 mg/dL (8.5-10.1); CREATININE 1.7 mg/dL (0.7-1.3); PHOSPHOROUS 4.7 mg/dL (2.5-4.9)
[2016-08-06] MEDS: HEPARIN NA (PORCINE) 5,000 UNITS/ML 1ML VIAL SQ SCH ×3 (07:03→21:56)
[2016-08-06] MEDS: ASPIRIN 81 MG CHEWABLE TABLETS PO SCH ×2 (07:11→09:05)
[2016-08-06] MEDS: PANTOPRAZOLE 40 MG TABLET (FP) PO SCH ×2 (07:11→09:06)
[2016-08-06] MEDS: MUPIROCIN 2% TOPICAL OINTMENT FOR DECOLONIZATION NS SCH ×3 (07:11→21:56)
[2016-08-06] MEDS: METOPROLOL TARTRATE 25 MG TABLET (FP) PO SCH ×2 (07:11→09:06)
[2016-08-06 07:41] LABS: ARTERIAL BLD GAS O2 SATURATION 89.9 % (90-98.9); ARTERIAL BLOOD GAS BASE EXCESS 2.8 meq/l (-2-2); ARTERIAL BLOOD GAS HCO3 26.1 meq/L (22-26); ARTERIAL BLOOD GAS PO2 57.7 mmHg (80-100); ARTERIAL BLOOD GAS pH 7.46 (7.35-7.45)
[2016-08-06 07:45] LABS: ALLENS TEST POSITIVE; ART PUNCT SITE LEFT RADIAL; LPM/O2% 50%; PT. ON O2? YES; TYPE OF O2 VENTI/MASK
--- NOTE | 2016-08-06 08:33 | PN ---
Progress Note (short form) - Note Progress Note: Seen and examined in the ICU afebrile, BP stable Required NIPPV overnight Weaned to Vent 50% this AM PaO2: 58 Productive cough: yellow small blood tinged infectious w/u negative to date Denies: n/v/CP/DONIS/dizziness Current Medications Albuterol/Ipratropium (Duoneb -) 1 amp NEB Q4H PRN PRN Reason: SHORTNESS OF BREATH Albuterol/Ipratropium (Duoneb -) 1 amp NEB Q6HPO [facility] Last Admin: 08/06/16 06:50 Dose: 1 amp Aspirin (Asa -) 81 mg PO DAILY [facility] Last Admin: 08/06/16 07:11 Dose: 81 mg Atorvastatin Calcium (Lipitor -) 20 mg PO HS [facility] Last Admin: 08/05/16 23:15 Dose: 20 mg Chlorhexidine Gluconate (Hibiclens For Decolonization -) 1 applic TP HS [facility] Last Admin: 08/05/16 23:15 Dose: 1 applic Heparin Sodium (Porcine) (Heparin -) 5,000 unit SQ TID [facility] Last Admin: 08/06/16 07:03 Dose: 5,000 unit Ceftriaxone Sodium (Rocephin 2gm Ivpb (Pre-Docked)) 100 mls @ 200 mls/hr IVPB DAILY [facility] Last Admin: 08/05/16 09:40 Dose: 200 mls/hr Azithromycin (Zithromax 500mg Ivpb (Pre-Docked)) 250 mls @ 250 mls/hr IVPB DAILY [facility] Last Admin: 08/05/16 09:40 Dose: 250 mls/hr Methylprednisolone Sodium Succinate (Solu-Medrol -) 40 mg IVPB DAILY [facility] Last Admin: 08/05/16 09:40 Dose: 40 mg Metoprolol Tartrate (Lopressor -) 25 mg PO BID [facility] Last Admin: 08/06/16 07:11 Dose: 25 mg Mupirocin (Bactroban Ointment (For Decolonization) -) 1 applic NS BID [facility] Stop: 08/09/16 16:59 Last Admin: 08/06/16 07:11 Dose: 1 inch Pantoprazole Sodium (Protonix -) 40 mg PO DAILY [facility] Last Admin: 08/06/16 07:11 Dose: 40 mg Vital Signs Period Temp Pulse Resp BP Sys/[place] Pulse Ox Last 24 Hr 98 F-98.2 F 76-101 22-28 130-149/90-102 97-99 Intake & Output 08/03/16 08/04/16 08/05/16 08/06/16 23:59 23:59 23:59 23:59 Intake Total 1100 500 300 Output Total 1500 2700 Balance -400 -2200 300 Weight 112.037 kg 109 kg 109 kg Exam: awake, alert and cooperattive, no distress HENNT: PERRL, no JVD CV: RRR Pulm: insp carkles with exp wheeze t/o both lung jones Abd: obese, SNTND< +BS Ext: WWP, no edema Neuro: grossly intact CBCD WBC 18.5 K/mm3 (4.0-10.0) H 08/06/16 05:20 RBC 4.68 M/mm3 (4.00-5.60) 08/06/16 05:20 Hgb 13.7 GM/dL (11.7-16.9) 08/06/16 05:20 Hct 41.8 % (35.4-49) 08/06/16 05:20 MCV 89.3 fl (80-96) 08/06/16 05:20 MCHC 32.9 g/dl (32.0-35.9) 08/06/16 05:20 RDW 14.8 % (11.9-15.9) 08/06/16 05:20 Plt Count 277 K/MM3 (134-434) D 08/06/16 05:20 MPV 10.0 fl (7.5-11.1) 08/06/16 05:20 CMP Sodium 142 mmol/L (136-145) 08/06/16 05:20 Potassium 3.7 mmol/L (3.5-5.1) 08/06/16 05:20 Chloride 102 mmol/L (98-107) 08/06/16 05:20 Carbon Dioxide 28 mmol/L (21-32) 08/06/16 05:20 Anion Gap 12 (8-16) 08/06/16 05:20 BUN 39 mg/dL (7-18) H 08/06/16 05:20 Creatinine 1.7 mg/dL (0.7-1.3) H 08/06/16 05:20 Creat Clearance w eGFR 37.71 (>60) 08/05/16 05:00 Random Glucose 141 mg/dL (74-106) H D 08/06/16 05:20 Calcium 8.3 mg/dL (8.5-10.1) L 08/06/16 05:20 Total Bilirubin 0.3 mg/dL (0.2-1.0) D 08/05/16 05:00 AST 26 U/L (15-37) 08/05/16 05:00 ALT 22 U/L (12-78) 08/05/16 05:00 Alkaline Phosphatase 86 U/L (45-117) 08/05/16 05:00 Total Protein 6.2 g/dl (6.4-8.2) L 08/05/16 05:00 Albumin 2.4 g/dl (3.4-5.0) L 08/05/16 05:00 CARDIAC ENZYMES Creatine Kinase 192 IU/L (39-308) 08/04/16 09:44 Troponin I 0.11 ng/ml (0.00-0.05) H D 08/05/16 05:00 CXR:pending Microbiology 08/04/16 16:30 Blood - Peripheral Venous Blood Culture - Preliminary NO GROWTH OBTAINED AFTER 24 HOURS, INCUBATION TO CONTINUE FOR 4 DAYS. 08/04/16 16:10 Blood - Peripheral Venous Blood Culture - Preliminary NO GROWTH OBTAINED AFTER 24 HOURS, INCUBATION TO CONTINUE FOR 4 DAYS. 08/04/16 21:40 Urine For Antigen Detection Legionella Antigen - Final--> negative 08/04/16 21:40 Urine For Antigen Detection Streptococcus pneumoniae Antigen (M - Final --> negative 08/04/16 07:57 Nasopharyngeal Swab Influenza Types A,B Antigen (SONIA) - Final --> negative 08/04/16 07:57 Nasopharyngeal Swab - Final Problem List - Problems (1) DOMENICA (acute kidney injury) Code(s): N17.9 - ACUTE KIDNEY FAILURE, UNSPECIFIED (2) ARDS (adult respiratory distress syndrome) Code(s): J80 - ACUTE RESPIRATORY DISTRESS SYNDROME (3) Acute hypoxemic respiratory failure Code(s): J96.01 - ACUTE RESPIRATORY FAILURE WITH HYPOXIA (4) HTN (hypertension) Code(s): I10 - ESSENTIAL (PRIMARY) HYPERTENSION Assessment/Plan Hypoxemia, Severe ARDS (P:F <100) Multilobar Pneumonia: likely infectious DOMENICA HTN -Continue NIPPV at night -O2 for sat >90% -Vasculitic process (DAH) less likely, but would benefit from bronchoscopy if he is intubated and is stable enough -Nebs and steroids for now -Advance diet today -Abx per ID - Vanc/Azith/CXT - f/u cultures -Gentle IVF -BP control -GI and DVT PPx Cont ICU level care Boerem ACNP Pulm/CCM CCT: 35m
[2016-08-06] MEDS: CEFTRIAXONE 100 ML IVPB SCH (09:05)
[2016-08-06] MEDS: methylPREDNISolone NA SUCC 40 MG/1 ML VIAL IVPB SCH (09:05)
[2016-08-06] MEDS: AZITHROMYCIN IVPB 250 ML IVPB SCH (09:05)
--- NOTE | 2016-08-06 09:42 | PN ---
Progress Note, Physician History of Present Illness: Awake alert Mildly dyspneic on ventimask but able to converse in full sentences Reports cough productive of gamez/red sputum No c/o chest pain Afebrile WBC remains elevated - Current Medication List Current Medications: Active Medications Albuterol/Ipratropium (Duoneb -) 1 amp NEB Q4H PRN PRN Reason: SHORTNESS OF BREATH Albuterol/Ipratropium (Duoneb -) 1 amp NEB Q6HPO [facility] Last Admin: 08/06/16 06:50 Dose: 1 amp Aspirin (Asa -) 81 mg PO DAILY [facility] Last Admin: 08/06/16 09:05 Dose: Not Given Atorvastatin Calcium (Lipitor -) 20 mg PO HS [facility] Last Admin: 08/05/16 23:15 Dose: 20 mg Chlorhexidine Gluconate (Hibiclens For Decolonization -) 1 applic TP HS [facility] Last Admin: 08/05/16 23:15 Dose: 1 applic Heparin Sodium (Porcine) (Heparin -) 5,000 unit SQ TID [facility] Last Admin: 08/06/16 07:03 Dose: 5,000 unit Ceftriaxone Sodium (Rocephin 2gm Ivpb (Pre-Docked)) 100 mls @ 200 mls/hr IVPB DAILY [facility] Last Admin: 08/06/16 09:05 Dose: 200 mls/hr Azithromycin (Zithromax 500mg Ivpb (Pre-Docked)) 250 mls @ 250 mls/hr IVPB DAILY [facility] Last Admin: 08/06/16 09:05 Dose: 250 mls/hr Methylprednisolone Sodium Succinate (Solu-Medrol -) 40 mg IVPB DAILY [facility] Last Admin: 08/06/16 09:05 Dose: 40 mg Metoprolol Tartrate (Lopressor -) 25 mg PO BID [facility] Last Admin: 08/06/16 09:06 Dose: Not Given Mupirocin (Bactroban Ointment (For Decolonization) -) 1 applic NS BID [facility] Stop: 08/09/16 16:59 Last Admin: 08/06/16 09:06 Dose: Not Given Pantoprazole Sodium (Protonix -) 40 mg PO DAILY [facility] Last Admin: 08/06/16 09:06 Dose: Not Given - Objective Vital Signs: Vital Signs Temperature 98 F 08/06/16 02:00 Pulse Rate 82 08/06/16 08:00 Respiratory Rate 24 08/06/16 08:00 Blood Pressure 142/90 08/06/16 08:00 O2 Sat by Pulse Oximetry (%) 94 L 08/06/16 09:00 Constitutional: Yes: No Distress, Obese Eyes: Yes: Conjunctiva Clear Cardiovascular: Yes: Regular Rate and Rhythm, S1, S2 Respiratory: Yes: Other (+ bilateral crepitations) Gastrointestinal: Yes: Normal Bowel Sounds, Soft, Abdomen, Obese. No: Tenderness Labs: CBC, BMP 08/06/16 05:20 08/06/16 05:20 INR, PTT INR 1.12 (0.82-1.09) 08/04/16 03:45 Assessment/Plan Multilobar pneumonia DOMENICA Leukocytosis Await c/s Continue zithromax/ ceftriaxone/ vancomycin
[2016-08-06 10:12] LABS: COMPLEMENT C3 206 mg/dL (82-167); COMPLEMENT C4 39 mg/dL (14-44)
[2016-08-06] MEDS ORDERED: VANCOMYCIN 1 GRAM (PRE-DOCKED) 250 ML IVPB ONE (10:15)
--- NOTE | 2016-08-06 10:27 | PN ---
Progress Note, Physician History of Present Illness: Breathing intervally improved Coughing up phlegm now No chest pain - Current Medication List Current Medications: Active Medications Albuterol/Ipratropium (Duoneb -) 1 amp NEB Q4H PRN PRN Reason: SHORTNESS OF BREATH Albuterol/Ipratropium (Duoneb -) 1 amp NEB Q6HPO [facility] Last Admin: 08/06/16 06:50 Dose: 1 amp Aspirin (Asa -) 81 mg PO DAILY [facility] Last Admin: 08/06/16 09:05 Dose: Not Given Atorvastatin Calcium (Lipitor -) 20 mg PO HS [facility] Last Admin: 08/05/16 23:15 Dose: 20 mg Chlorhexidine Gluconate (Hibiclens For Decolonization -) 1 applic TP HS [facility] Last Admin: 08/05/16 23:15 Dose: 1 applic Heparin Sodium (Porcine) (Heparin -) 5,000 unit SQ TID [facility] Last Admin: 08/06/16 07:03 Dose: 5,000 unit Ceftriaxone Sodium (Rocephin 2gm Ivpb (Pre-Docked)) 100 mls @ 200 mls/hr IVPB DAILY [facility] Last Admin: 08/06/16 09:05 Dose: 200 mls/hr Azithromycin (Zithromax 500mg Ivpb (Pre-Docked)) 250 mls @ 250 mls/hr IVPB DAILY [facility] Last Admin: 08/06/16 09:05 Dose: 250 mls/hr Vancomycin HCl (Vancomycin (Pre-Docked)) 250 mls @ 166.667 mls/hr IVPB ONCE ONE Stop: 08/06/16 11:44 Methylprednisolone Sodium Succinate (Solu-Medrol -) 40 mg IVPB DAILY [facility] Last Admin: 08/06/16 09:05 Dose: 40 mg Metoprolol Tartrate (Lopressor -) 25 mg PO BID [facility] Last Admin: 08/06/16 09:06 Dose: Not Given Mupirocin (Bactroban Ointment (For Decolonization) -) 1 applic NS BID [facility] Stop: 08/09/16 16:59 Last Admin: 08/06/16 09:06 Dose: Not Given Pantoprazole Sodium (Protonix -) 40 mg PO DAILY [facility] Last Admin: 08/06/16 09:06 Dose: Not Given - Objective Vital Signs: Vital Signs Temperature 98 F 08/06/16 02:00 Pulse Rate 90 08/06/16 10:03 Respiratory Rate 24 08/06/16 08:00 Blood Pressure 142/90 08/06/16 08:00 O2 Sat by Pulse Oximetry (%) 95 08/06/16 10:03 Constitutional: Yes: No Distress, Calm Eyes: Yes: WNL HENT: Yes: WNL Neck: Yes: WNL Cardiovascular: Yes: Regular Rate and Rhythm Respiratory: Yes: Rales, Rhonchi Edema: No Labs: CBC, BMP 08/06/16 05:20 08/06/16 05:20 INR, PTT INR 1.12 (0.82-1.09) 08/04/16 03:45 Assessment/Plan 51 yo heavy drinker with h/o HTN, HL who presents with acute onset of sob. SOB - Likely not cardiac etiology. Infection vs. aspiration. Ongoing management per pmd, pulm. CXR not consistent with pulmonary edema, would not diurese. Mild lv dysfunction - May be acute in the setting of illness/infection vs. chronic secondary to heavy etoh use. - Currently euvolemic. - HF regimen as mentioned below. - Recommend repeat echo and recommend stress test as outpatient once clinical condition improves. Elevated troponin - Intermediate elevation not c/w ACS. Likely secondary to demand. May have underlying CAD and would benefit from stress testing as outpatient. -Does not need urgent ischemic work up. - will start asa, statin. HTN - reasonable blood pressure control. Ok to hold olmesartan in setting of renal dysfunction. Would start metoprolol if no concern for bronchospasm per pulm. Otherwise hydralazine. CKD with proteinuria - unknown baseline. mgm't per renal. etoh - monitor for withdrawal. - cessation counseling.
--- NOTE | 2016-08-06 11:42 | PN ---
Progress Note (short form) - Note Progress Note: RENAL Pt is awake and alert seems better today Last Vital Signs Temp Pulse Resp BP Pulse Ox 98.2 F 90 22 138/95 95 08/06/16 10:00 08/06/16 10:03 08/06/16 10:00 08/06/16 10:00 08/06/16 10:03 lungs bilat rhonchi cvs s1s2 rr abd soft ext no edema neuro a+ox3 CBC, BMP 08/06/16 05:20 08/06/16 05:20 Current Medications Generic Name Dose Route Start Last Admin Trade Name Freq PRN Reason Stop Dose Admin Albuterol/Ipratropium 1 amp 08/04/16 17:40 Duoneb - NEB Q4H PRN SHORTNESS OF BREATH Albuterol/Ipratropium 1 amp 08/04/16 18:00 08/06/16 06:50 Duoneb - NEB 1 amp Q6HPO [facility] Administration Aspirin 81 mg 08/05/16 10:00 08/06/16 09:05 Asa - PO Not Given DAILY [facility] Atorvastatin Calcium 20 mg 08/05/16 22:00 08/05/16 23:15 Lipitor - PO 20 mg HS [facility] Administration Chlorhexidine Gluconate 1 applic 08/04/16 22:00 08/05/16 23:15 Hibiclens For Decolonization - TP 1 applic HS [facility] Administration Heparin Sodium (Porcine) 5,000 unit 08/04/16 14:00 08/06/16 07:03 Heparin - SQ 5,000 unit TID [facility] Administration Ceftriaxone Sodium 100 mls @ 200 mls/hr 08/05/16 10:00 08/06/16 09:05 Rocephin 2gm Ivpb (Pre-Docked) IVPB 200 mls/hr DAILY [facility] Administration Azithromycin 250 mls @ 250 mls/hr 08/04/16 16:30 08/06/16 09:05 Zithromax 500mg Ivpb (Pre-Docked) IVPB 250 mls/hr DAILY [facility] Administration Vancomycin HCl 250 mls @ 166.667 mls/hr 08/06/16 10:15 08/06/16 10:43 Vancomycin (Pre-Docked) IVPB 08/06/16 11:44 166.667 mls/hr ONCE ONE Administration Methylprednisolone Sodium Succinate 40 mg 08/04/16 16:15 08/06/16 09:05 Solu-Medrol - IVPB 40 mg DAILY [facility] Administration Metoprolol Tartrate 25 mg 08/05/16 10:00 08/06/16 09:06 Lopressor - PO Not Given BID [facility] Mupirocin 1 applic 08/04/16 17:00 08/06/16 09:06 Bactroban Ointment (For Decolonization) - NS 08/09/16 16:59 Not Given BID [facility] Pantoprazole Sodium 40 mg 08/05/16 10:00 08/06/16 09:06 Protonix - PO Not Given DAILY [facility] CXR report- "slightly worse" IMPRESSION DOMENICA again improved has proteinuria which could be overflow but may also be associated with ckd bilateral infiltrates that are "worse" by cxr severe hypoxia requiring bipap at 90 percent hematuria _ vasculitic- c3,c4 neg so far PLAN agree with current management on azithro for atypical coverage vasculitis work up in progress though I doubt this is the underlying diagnosis aso titer ordered avoid nephrotoxins if creat continues to improve can try an vy inhibitor MV
--- NOTE | 2016-08-06 17:17 | PN ---
Physical Exam: SUBJECTIVE: Patient seen and examined. OBJECTIVE: Vital Signs Period Temp Pulse Resp BP Sys/[place] Pulse Ox Last 24 Hr 98 F-98.8 F 76-101 20-28 134-150/88-102 93-99 GENERAL: The patient is awake, alert, and fully oriented, in no acute distress. HEAD: Normal with no signs of trauma. EYES: PERRL, extraocular movements intact, sclera anicteric, conjunctiva clear. No ptosis. LUNGS: Diffuse rhonchi; dyspnic with speaking. SpO2 91% on 6L HEART: Regular rate and rhythm, S1, S2 without murmur, rub or gallop. ABDOMEN: Soft, nontender, nondistended, normoactive bowel sounds, no guarding, no rebound EXTREMITIES: 2+ pulses, warm, well-perfused, no edema. NEUROLOGICAL: Cranial nerves II through XII grossly intact. Normal speech, steady gait. +asterixis Laboratory Results - last 24 hr 08/04/16 08/06/16 08/06/16 18:28 05:20 05:20 WBC 18.5 H RBC 4.68 Hgb 13.7 Hct 41.8 MCV 89.3 MCHC 32.9 RDW 14.8 Plt Count 277 D MPV 10.0 Puncture Site ABG pH ABG pCO2 at Pt Temp ABG pO2 at Pt Temp ABG HCO3 ABG O2 Sat (Measured) ABG O2 Content ABG Base Excess Shaquille Test O2 Delivery Device Oxygen Flow Rate PEEP Sodium 142 Potassium 3.7 Chloride 102 Carbon Dioxide 28 Anion Gap 12 BUN 39 H Creatinine 1.7 H Random Glucose 141 H D Calcium 8.3 L Phosphorus 4.7 Magnesium 3.0 H Complement C3 206 H Complement C4 39 RSV Ag Report Status 08/06/16 08/06/16 07:45 08:00 WBC RBC Hgb Hct MCV MCHC RDW Plt Count MPV Puncture Site Left radial ABG pH 7.46 H ABG pCO2 at Pt Temp 37.1 ABG pO2 at Pt Temp 57.7 L ABG HCO3 26.1 H ABG O2 Sat (Measured) 89.9 L ABG O2 Content 16.8 ABG Base Excess 2.8 H Shaquille Test Positive O2 Delivery Device Venti/mask Oxygen Flow Rate 50% PEEP 0.0 Sodium Potassium Chloride Carbon Dioxide Anion Gap BUN Creatinine Random Glucose Calcium Phosphorus Magnesium Complement C3 Complement C4 RSV Ag Report Status Negative Active Medications Generic Name Dose Route Start Last Admin Trade Name Freq PRN Reason Stop Dose Admin Albuterol/Ipratropium 1 amp 08/04/16 17:40 Duoneb - NEB Q4H PRN SHORTNESS OF BREATH Albuterol/Ipratropium 1 amp 08/04/16 18:00 08/06/16 12:26 Duoneb - NEB 1 amp Q6HPO [facility] Administration Aspirin 81 mg 08/05/16 10:00 08/06/16 09:05 Asa - PO Not Given DAILY [facility] Atorvastatin Calcium 20 mg 08/05/16 22:00 08/05/16 23:15 Lipitor - PO 20 mg HS [facility] Administration Chlorhexidine Gluconate 1 applic 08/04/16 22:00 08/05/16 23:15 Hibiclens For Decolonization - TP 1 applic HS [facility] Administration Heparin Sodium (Porcine) 5,000 unit 08/04/16 14:00 08/06/16 13:08 Heparin - SQ 5,000 unit TID [facility] Administration Ceftriaxone Sodium 100 mls @ 200 mls/hr 08/05/16 10:00 08/06/16 09:05 Rocephin 2gm Ivpb (Pre-Docked) IVPB 200 mls/hr DAILY [facility] Administration Azithromycin 250 mls @ 250 mls/hr 08/04/16 16:30 08/06/16 09:05 Zithromax 500mg Ivpb (Pre-Docked) IVPB 250 mls/hr DAILY [facility] Administration Methylprednisolone Sodium Succinate 40 mg 08/04/16 16:15 08/06/16 09:05 Solu-Medrol - IVPB 40 mg DAILY [facility] Administration Metoprolol Tartrate 25 mg 08/05/16 10:00 08/06/16 09:06 Lopressor - PO Not Given BID [facility] Mupirocin 1 applic 08/04/16 17:00 08/06/16 09:06 Bactroban Ointment (For Decolonization) - NS 08/09/16 16:59 Not Given BID [facility] Pantoprazole Sodium 40 mg 08/05/16 10:00 08/06/16 09:06 Protonix - PO Not Given DAILY [facility] ASSESSMENT/PLAN: 51 year-old male with a PMH of HTN, HLD, and ETOH abuse, admitted for hypoxic respiratory failure secondary to multilobar CAP. Hypoxic respiratory failure --required NIPPV last night --weaned to VM 50% this AM PaO2: 58 --on NC satting 94% on 6L Multilobar CAP --persistent leukocytosis, afebrile --serial CXRs show diffuse bilateral infiltrates/airspace disease --Flu negative; Legionella negative; blood NGTD; TB Gold and sputum cx pending --continue azithro (day #3), ceftriaxone (day #3), vanc (day #1) --duonebs Chronic systolic heart failure --08/04 Echo: LV function mildly reduced, mild global hypokinesis; mild MR; mild TR; mild AI --euovolemic, no diuresis --will need outpatient stress Elevated troponins --flat trending, likely from demand --per cardiology, start ASA, statin Hypertension --switch to Toprol XL BID Hyperlipidemia --continue statin Acute kidney injury --Cr 2.7 on admission, now 1.7, baseline unknown --hold ACEI/ARB --renal following Chronic ETOH abuse --drinks 6 drinks daily, more on special occasions; drinks whole bottle of scotch in one evening several times per month --+ asterixis on exam --librium PRN F/E/N Fluids: PO intake adequate Electrolytes: replete as indicated Nutrition: low sodium diabetic DVT prophylaxis: subq heparin, oob, ambulation Physical therapy Dispo: continues to require ICU care. Full Code. Visit type - Emergency Visit Emergency Visit: Yes ED Registration Date: 08/04/16 Care time: The patient presented to the Emergency Department on the above date and was hospitalized for further evaluation of their emergent condition. - New Patient This patient is new to me today: Yes Date on this admission: 08/06/16 - Critical Care Critical Care patient: Yes Total Critical Care Time (in minutes): 35 Critical Care Statement: The care of this patient involved high complexity decision making to prevent further life threatening deterioration of the patient 's condition and/or to evalute & treat vital organ system(s) failure or risk of failure.
[2016-08-06] MEDS ORDERED: chlordiazePOXIDE HCL 25 MG CAPSULE PO PRN (17:50)
[2016-08-06] MEDS: CHLORHEXIDINE GLUCONATE 4% CLEANSER FOR DECOLONIZATION TP SCH (21:56)
[2016-08-06] MEDS: ATORVASTATIN CA 20 MG TABLET (FP) PO SCH (21:57)
[2016-08-06] MEDS ORDERED: METOPROLOL SUCCINATE 25 MG TAB.SR.24H (FP) PO SCH (22:00)
[2016-08-07] MEDS: ALBUTEROL SO4 2.5/IPRATROPIUM 0.5 INH SOL 3 ML VIAL.NEB. NEB SCH ×4 (06:10→18:10)
[2016-08-07 06:25] LABS: MCH 29.5 pg (25.7-33.7); MEAN CELL VOLUME 89.6 fl (80-96); PLATELET COUNT 302 K/MM3 (134-434); WHITE BLOOD COUNT 16.9 K/mm3 (4.0-10.0)
[2016-08-07 07:00] LABS: CALCIUM 8.2 mg/dL (8.5-10.1); CREATININE 1.6 mg/dL (0.7-1.3); MAGNESIUM 2.6 mg/dL (1.8-2.4); PHOSPHOROUS 4.1 mg/dL (2.5-4.9)
--- NOTE | 2016-08-07 07:26 | PN ---
Progress Note, Physician Chief Complaint: ID Dramatic improvement since admission Ceftriaxone and Azithromycin day 3 Rx Using nasal cannula - Current Medication List Current Medications: Active Medications Albuterol/Ipratropium (Duoneb -) 1 amp NEB Q4H PRN PRN Reason: SHORTNESS OF BREATH Albuterol/Ipratropium (Duoneb -) 1 amp NEB Q6HPO [facility] [place] Last Admin: 08/07/16 06:10 Dose: 1 amp Aspirin (Asa -) 81 mg PO DAILY [facility] Last Admin: 08/06/16 09:05 Dose: Not Given Atorvastatin Calcium (Lipitor -) 20 mg PO HS [facility] Last Admin: 08/06/16 21:57 Dose: 20 mg Chlordiazepoxide HCl (Librium -) 25 mg PO Q4H PRN PRN Reason: WITHDRAWAL(CONT SUBST) Chlorhexidine Gluconate (Hibiclens For Decolonization -) 1 applic TP HS [facility] Last Admin: 08/06/16 21:56 Dose: 1 applic Heparin Sodium (Porcine) (Heparin -) 5,000 unit SQ TID [facility] Last Admin: 08/06/16 21:56 Dose: 5,000 unit Ceftriaxone Sodium (Rocephin 2gm Ivpb (Pre-Docked)) 100 mls @ 200 mls/hr IVPB DAILY [facility] Last Admin: 08/06/16 09:05 Dose: 200 mls/hr Azithromycin (Zithromax 500mg Ivpb (Pre-Docked)) 250 mls @ 250 mls/hr IVPB DAILY [facility] [place] Last Admin: 08/06/16 09:05 Dose: 250 mls/hr Methylprednisolone Sodium Succinate (Solu-Medrol -) 40 mg IVPB DAILY [facility] Last Admin: 08/06/16 09:05 Dose: 40 mg Metoprolol Succinate (Toprol Xl -) 25 mg PO BID [facility] Last Admin: 08/06/16 21:57 Dose: 25 mg Mupirocin (Bactroban Ointment (For Decolonization) -) 1 applic NS BID [facility] [place] Stop: 08/09/16 16:59 Last Admin: 08/06/16 21:56 Dose: 1 inch Pantoprazole Sodium (Protonix -) 40 mg PO DAILY [facility] [place] Last Admin: 08/06/16 09:06 Dose: Not Given - Objective Vital Signs: Vital Signs Temperature 98.8 F 08/06/16 14:00 Pulse Rate 96 H 08/06/16 19:46 Respiratory Rate 20 08/06/16 19:46 Blood Pressure 149/97 08/06/16 19:46 O2 Sat by Pulse Oximetry (%) 93 L 08/06/16 19:51 Constitutional: Yes: Mild Distress Neck: Yes: WNL, Supple Cardiovascular: Yes: Regular Rate and Rhythm, S1, S2. No: Murmur Respiratory: Yes: WNL, Regular, CTA Bilaterally. No: Rales, Rhonchi, Wheezes Gastrointestinal: Yes: WNL, Normal Bowel Sounds, Soft. No: Tenderness, Tenderness, Epigastrium Extremities: No: Cold, Cool, Cyanosis Edema: No Labs: CBC, BMP 08/07/16 05:25 08/07/16 05:25 INR, PTT INR 1.12 (0.82-1.09) 08/04/16 03:45 Assessment/Plan Microbiology 08/06/16 08:00 Sputum - Expectorated Gram Stain - Final 08/04/16 21:40 Urine For Antigen Detection Legionella Antigen - Final 08/04/16 21:40 Urine For Antigen Detection Streptococcus pneumoniae Antigen (M - Final 08/04/16 21:40 Urine - Urine Clean Catch Urine Culture - Final NO GROWTH OBTAINED 08/04/16 07:57 Nasopharyngeal Swab Influenza Types A,B Antigen (SONIA) - Final 08/04/16 07:57 Nasopharyngeal Swab - Final 08/05/16 08:15 Blood - Peripheral Venous TB Test (QFT) (SONIA) - Preliminary 08/04/16 16:30 Blood - Peripheral Venous Blood Culture - Preliminary NO GROWTH OBTAINED AFTER 48 HOURS, INCUBATION TO CONTINUE FOR 3 DAYS. 08/04/16 16:10 Blood - Peripheral Venous Blood Culture - Preliminary NO GROWTH OBTAINED AFTER 48 HOURS, INCUBATION TO CONTINUE FOR 3 DAYS. Laboratory Tests 08/05/16 08/07/16 08/07/16 05:00 05:25 05:25 WBC 16.9 H Hgb 14.2 Hct 43.2 Plt Count 302 BUN 38 H Creatinine 1.6 H Troponin I 0.11 H D Assessment Sepsis syndrome severe Bilateral pneumonia unspecified etiology Acute renal failure Hypertension Plan Continue current antibiotics as ordered Steroids on board Critical care time spent Demario ADAMS
[2016-08-07] MEDS: HEPARIN NA (PORCINE) 5,000 UNITS/ML 1ML VIAL SQ SCH ×3 (07:31→21:50)
[2016-08-07] MEDS: methylPREDNISolone NA SUCC 40 MG/1 ML VIAL IVPB SCH (10:39)
[2016-08-07] MEDS: AZITHROMYCIN IVPB 250 ML IVPB SCH (10:39)
[2016-08-07] MEDS: CEFTRIAXONE 100 ML IVPB SCH (10:40)
[2016-08-07] MEDS: MUPIROCIN 2% TOPICAL OINTMENT FOR DECOLONIZATION NS SCH ×2 (10:41→23:06)
[2016-08-07] MEDS: ASPIRIN 81 MG CHEWABLE TABLETS PO SCH (10:41)
[2016-08-07] MEDS: PANTOPRAZOLE 40 MG TABLET (FP) PO SCH (10:41)
[2016-08-07] MEDS ORDERED: ALBUTEROL SO4 0.083% IH SOL 2.5 MG/3 ML VIAL.NEB. NEB PRN (10:43)
[2016-08-07] MEDS ORDERED: amLODIPine BESYLATE 5 MG TABLET (FP) PO SCH ×2 (11:00→22:00)
--- NOTE | 2016-08-07 11:31 | PN ---
Progress Note, Physician - Current Medication List Current Medications: Active Medications Albuterol Sulfate (Ventolin 0.083% Nebulizer Soln -) 1 amp NEB Q4H PRN PRN Reason: SHORT OF BREATH/WHEEZING Albuterol/Ipratropium (Duoneb -) 1 amp NEB Q6HPO [facility] Last Admin: 08/07/16 11:03 Dose: 1 amp Amlodipine Besylate (Norvasc -) 5 mg PO DAILY [facility] Last Admin: 08/07/16 11:17 Dose: 5 mg Aspirin (Asa -) 81 mg PO DAILY [facility] Last Admin: 08/07/16 10:41 Dose: 81 mg Atorvastatin Calcium (Lipitor -) 20 mg PO HS [facility] Last Admin: 08/06/16 21:57 Dose: 20 mg Chlordiazepoxide HCl (Librium -) 25 mg PO Q4H PRN PRN Reason: WITHDRAWAL(CONT SUBST) Chlorhexidine Gluconate (Hibiclens For Decolonization -) 1 applic TP HS [facility] Last Admin: 08/06/16 21:56 Dose: 1 applic Heparin Sodium (Porcine) (Heparin -) 5,000 unit SQ TID [facility] Last Admin: 08/07/16 07:31 Dose: 5,000 unit Ceftriaxone Sodium (Rocephin 2gm Ivpb (Pre-Docked)) 100 mls @ 200 mls/hr IVPB DAILY [facility] Last Admin: 08/07/16 10:40 Dose: 200 mls/hr Azithromycin (Zithromax 500mg Ivpb (Pre-Docked)) 250 mls @ 250 mls/hr IVPB DAILY [facility] Last Admin: 08/07/16 10:39 Dose: 250 mls/hr Methylprednisolone Sodium Succinate (Solu-Medrol -) 40 mg IVPB DAILY [facility] Last Admin: 08/07/16 10:39 Dose: 40 mg Mupirocin (Bactroban Ointment (For Decolonization) -) 1 applic NS BID [facility] Stop: 08/09/16 16:59 Last Admin: 08/07/16 10:41 Dose: 1 inch Pantoprazole Sodium (Protonix -) 40 mg PO DAILY [facility] Last Admin: 08/07/16 10:41 Dose: 40 mg - Objective Vital Signs: Vital Signs Temperature 98 F 08/07/16 02:00 Pulse Rate 84 08/07/16 09:54 Respiratory Rate 22 08/07/16 06:00 Blood Pressure 140/100 08/07/16 06:00 O2 Sat by Pulse Oximetry (%) 95 08/07/16 09:54 Labs: CBC, BMP 08/07/16 05:25 08/07/16 05:25 INR, PTT INR 1.12 (0.82-1.09) 08/04/16 03:45 Assessment/Plan 51 yo heavy drinker with h/o HTN, HL who presents with acute onset of sob. PNA, ARDS: -? aspiration -mgmt per crit care/pulm team Mild lv dysfunction - May be acute in the setting of illness/infection vs. chronic secondary to heavy etoh use. - Currently euvolemic. - HF regimen as mentioned below. - Recommend repeat echo and recommend stress test as outpatient once clinical condition improves. Elevated troponin - Intermediate elevation not c/w ACS. Likely secondary to demand. May have underlying CAD and would benefit from stress testing as outpatient. -Does not need urgent ischemic work up. - started asa, statin here HTN - holding olmesartan in setting of renal dysfunction. - BPs 140s-160s/90-100s - amlodipine started today - observe bp trend CKD with proteinuria - unknown baseline. - mgm't per renal. etoh - monitor for withdrawal. - cessation counseling.
--- NOTE | 2016-08-07 11:36 | PN ---
Teaching Attending Note Name of Resident: Oleksandr Kaplan ATTENDING PHYSICIAN STATEMENT I saw and evaluated the patient. I reviewed the resident's note and discussed the case with the resident. I agree with the resident's findings and plan as documented. SUBJECTIVE: Pt seen and examined in the ICU. Breathing continues to improve. +nonproductive cough and wheezing especially after nebulizer treatment. No fevers or chills. OBJECTIVE: Last Vital Signs Temp Pulse Resp BP Pulse Ox 98 F 84 22 140/100 95 08/07/16 02:00 08/07/16 09:54 08/07/16 06:00 08/07/16 06:00 08/07/16 09:54 Intake & Output 08/04/16 08/05/16 08/06/16 08/07/16 23:59 23:59 23:59 23:59 Intake Total 5259 522 7098 Output Total 1500 2700 1500 700 Balance -400 -2200 220 -700 Weight 247 lb 240 lb 4.862 oz 240 lb 4.862 oz 242 lb 8.136 oz Gen: mildly tachypneic with speaking Heart: RRR Lung: bilateral rhonchi, wheezes Abd: soft, nontender Ext: no edema CBC, BMP 08/07/16 05:25 08/07/16 05:25 Active Medications Albuterol Sulfate (Ventolin 0.083% Nebulizer Soln -) 1 amp NEB Q4H PRN PRN Reason: SHORT OF BREATH/WHEEZING Albuterol/Ipratropium (Duoneb -) 1 amp NEB Q6HPO [facility] Last Admin: 08/07/16 11:03 Dose: 1 amp Amlodipine Besylate (Norvasc -) 5 mg PO DAILY [facility] Last Admin: 08/07/16 11:17 Dose: 5 mg Aspirin (Asa -) 81 mg PO DAILY [facility] Last Admin: 08/07/16 10:41 Dose: 81 mg Atorvastatin Calcium (Lipitor -) 20 mg PO HS [facility] Last Admin: 08/06/16 21:57 Dose: 20 mg Chlordiazepoxide HCl (Librium -) 25 mg PO Q4H PRN PRN Reason: WITHDRAWAL(CONT SUBST) Chlorhexidine Gluconate (Hibiclens For Decolonization -) 1 applic TP HS [facility] Last Admin: 08/06/16 21:56 Dose: 1 applic Heparin Sodium (Porcine) (Heparin -) 5,000 unit SQ TID [facility] Last Admin: 08/07/16 07:31 Dose: 5,000 unit Ceftriaxone Sodium (Rocephin 2gm Ivpb (Pre-Docked)) 100 mls @ 200 mls/hr IVPB DAILY [facility] Last Admin: 08/07/16 10:40 Dose: 200 mls/hr Azithromycin (Zithromax 500mg Ivpb (Pre-Docked)) 250 mls @ 250 mls/hr IVPB DAILY [facility] Last Admin: 08/07/16 10:39 Dose: 250 mls/hr Methylprednisolone Sodium Succinate (Solu-Medrol -) 40 mg IVPB DAILY [facility] Last Admin: 08/07/16 10:39 Dose: 40 mg Mupirocin (Bactroban Ointment (For Decolonization) -) 1 applic NS BID [facility] Stop: 08/09/16 16:59 Last Admin: 08/07/16 10:41 Dose: 1 inch Pantoprazole Sodium (Protonix -) 40 mg PO DAILY [facility] Last Admin: 08/07/16 10:41 Dose: 40 mg ASSESSMENT AND PLAN: Multilobar Pneumonia ARDS improving Acute Kidney Injury improving HTN r/o COPD Exacerbation - continue antibiotics - inhaled bronchodilators - continue medrol - O2 to keep SpO2 >90% - BiPAP as needed to assist in work of breathing - PO as tolerated - OOB to chair - will need outpt PFTs - can monitor on floor
--- NOTE | 2016-08-07 11:51 | PN ---
Physical Exam: SUBJECTIVE: Patient seen and examined, patient sitting cmfartably in bed denies sob, chest pain, palpitations on nasal canula 5 L with spo2 of 96% off from BIPAP, last time used was on sunday BP elevated, will avoid vy inhibitor and arb due to monica and will aslo avoid beta forest due to respiratory distress. Patient started on amlodipine OBJECTIVE: Vital Signs Period Temp Pulse Resp BP Sys/[place] Pulse Ox Last 24 Hr 98 F-98.8 F 72-106 20-22 140-161/88-101 93-95 GENERAL: The patient is awake, alert, and fully oriented, in no acute distress. HEAD: Normal with no signs of trauma. EYES: PERRL, extraocular movements intact,= ENT: Ears normal, nares patent, oropharynx clear without exudates, moist mucous membranes. NECK: Trachea midline, full range of motion, supple. LUNGS: Breath sounds equal, b/l ronchi present , no wheezes, no crackles, no accessory muscle use. HEART: s1s2 francisco l ABDOMEN: Soft, nontender, nondistended, normoactive bowel sounds, no guarding, EXTREMITIES: 2+ pulses, warm, well-perfused, no edema. NEUROLOGICAL: Cranial nerves II through XII grossly intact. Normal speech, PSYCH: Normal mood, normal affect. SKIN: Warm, dry, normal turgor, no rashes or lesions noted Laboratory Results - last 24 hr 08/07/16 08/07/16 08/07/16 05:25 05:25 05:25 WBC 16.9 H RBC 4.82 Hgb 14.2 Hct 43.2 MCV 89.6 MCHC 33.0 RDW 15.0 Plt Count 302 MPV 10.0 Sodium 143 Potassium 3.8 Chloride 105 Carbon Dioxide 27 Anion Gap 11 BUN 38 H Creatinine 1.6 H Random Glucose 111 H D Calcium 8.2 L Phosphorus 4.1 Magnesium 2.6 H Random Vancomycin 3.934 Active Medications Generic Name Dose Route Start Last Admin Trade Name Freq PRN Reason Stop Dose Admin Albuterol Sulfate 1 amp 08/07/16 10:43 Ventolin 0.083% Nebulizer Soln - NEB Q4H PRN SHORT OF BREATH/WHEEZING Albuterol/Ipratropium 1 amp 08/04/16 18:00 08/07/16 11:03 Duoneb - NEB 1 amp Q6HPO [facility] Administration Amlodipine Besylate 5 mg 08/07/16 11:00 08/07/16 11:17 Norvasc - PO 5 mg DAILY [facility] Administration Aspirin 81 mg 08/05/16 10:00 08/07/16 10:41 Asa - PO 81 mg DAILY [facility] Administration Atorvastatin Calcium 20 mg 08/05/16 22:00 08/06/16 21:57 Lipitor - PO 20 mg HS [facility] Administration Chlordiazepoxide HCl 25 mg 08/06/16 17:50 Librium - PO Q4H PRN WITHDRAWAL(CONT SUBST) Chlorhexidine Gluconate 1 applic 08/04/16 22:00 08/06/16 21:56 Hibiclens For Decolonization - TP 1 applic HS [facility] Administration Heparin Sodium (Porcine) 5,000 unit 08/04/16 14:00 08/07/16 07:31 Heparin - SQ 5,000 unit TID [facility] Administration Ceftriaxone Sodium 100 mls @ 200 mls/hr 08/05/16 10:00 08/07/16 10:40 Rocephin 2gm Ivpb (Pre-Docked) IVPB 200 mls/hr DAILY [facility] Administration Azithromycin 250 mls @ 250 mls/hr 08/04/16 16:30 08/07/16 10:39 Zithromax 500mg Ivpb (Pre-Docked) IVPB 250 mls/hr DAILY [facility] Administration Methylprednisolone Sodium Succinate 40 mg 08/04/16 16:15 08/07/16 10:39 Solu-Medrol - IVPB 40 mg DAILY [facility] Administration Mupirocin 1 applic 08/04/16 17:00 08/07/16 10:41 Bactroban Ointment (For Decolonization) - NS 08/09/16 16:59 1 inch BID [facility] Administration Pantoprazole Sodium 40 mg 08/05/16 10:00 08/07/16 10:41 Protonix - PO 40 mg DAILY [facility] Administration Microbiology 08/06/16 08:00 Sputum - Expectorated Gram Stain - Final 08/06/16 08:00 Sputum - Expectorated Sputum Culture - Preliminary NORMAL RESPIRATORY MILLI 08/04/16 07:57 Nasopharyngeal Swab Respiratory Virus Panel - Preliminary 08/04/16 16:30 Blood - Peripheral Venous Blood Culture - Preliminary NO GROWTH OBTAINED AFTER 48 HOURS, INCUBATION TO CONTINUE FOR 3 DAYS. 08/04/16 16:10 Blood - Peripheral Venous Blood Culture - Preliminary NO GROWTH OBTAINED AFTER 48 HOURS, INCUBATION TO CONTINUE FOR 3 DAYS. 08/05/16 08:15 Blood - Peripheral Venous TB Test (QFT) ([facility]) - Preliminary 08/04/16 21:40 Urine - Urine Clean Catch Urine Culture - Final NO GROWTH OBTAINED 08/04/16 21:40 Urine For Antigen Detection Legionella Antigen - Final 08/04/16 21:40 Urine For Antigen Detection Streptococcus pneumoniae Antigen (M - Final 08/04/16 07:57 Nasopharyngeal Swab Influenza Types A,B Antigen (SONIA) - Final 08/04/16 07:57 Nasopharyngeal Swab - Final ASSESSMENT/PLAN: Acute hypoxic respiratory failure secondary pneumonia cxr improved on nasal canula 5 l with spo2 96 ECHO shows mild lv dysfunction monitor vitals monitor intake/ output on solumedrol 40mg daily antibiotics as per ID azithromycin, ceftriaxone maintain spo2 over >90 pulmonary and id on case keep map > 65 -DOMENICA monitor cr avoid nephrotoxic drugs nephrology on case will hold arb and vy -Elevated trops could be demand ischemia trending down on aspirin and lipitor -HTN on Amlodipine 5 mg bid -DVT ppx -Heparin sq TID gi pro protonix -FEN - accepting orally - electrolytes wnl - orally allowed Patient is full code -Dispo transfer to med surg Visit type - Emergency Visit Emergency Visit: Yes ED Registration Date: 08/04/16 Care time: The patient presented to the Emergency Department on the above date and was hospitalized for further evaluation of their emergent condition. - New Patient This patient is new to me today: No - Critical Care Critical Care patient: Yes Total Critical Care Time (in minutes): 45 Critical Care Statement: The care of this patient involved high complexity decision making to prevent further life threatening deterioration of the patient 's condition and/or to evalute & treat vital organ system(s) failure or risk of failure.
[2016-08-07] MEDS ORDERED: LABETALOL HCL 5 MG/1 ML (100MG/20 ML VIAL) ONE (12:32)
[2016-08-07] MEDS ORDERED: LABETALOL HCL 5 MG/1 ML (100MG/20 ML VIAL) IVPUSH ONE (13:00)
--- NOTE | 2016-08-07 13:28 | PN ---
Progress Note (short form) - Note Progress Note: Subjective: The patient was seen and examined in the ICU, he has no complaints at this time. He reports getting out of bed to the chair and his legs feel "unsteady". The patient reports non-compliance with Garcia at home 2/2 lower extremity edema Hypertensive overnight, will start Norvasc Current Medications Generic Name Dose Route Start Last Admin Trade Name Freq PRN Reason Stop Dose Admin Albuterol Sulfate 1 amp 08/07/16 10:43 Ventolin 0.083% Nebulizer Soln - NEB Q4H PRN SHORT OF BREATH/WHEEZING Albuterol/Ipratropium 1 amp 08/04/16 18:00 08/07/16 11:03 Duoneb - NEB 1 amp Q6HPO [facility] Administration Amlodipine Besylate 5 mg 08/07/16 22:00 Norvasc - PO BID [facility] Aspirin 81 mg 08/05/16 10:00 08/07/16 10:41 Asa - PO 81 mg DAILY [facility] Administration Atorvastatin Calcium 20 mg 08/05/16 22:00 08/06/16 21:57 Lipitor - PO 20 mg HS [facility] Administration Chlordiazepoxide HCl 25 mg 08/06/16 17:50 Librium - PO Q4H PRN WITHDRAWAL(CONT SUBST) Chlorhexidine Gluconate 1 applic 08/04/16 22:00 08/06/16 21:56 Hibiclens For Decolonization - TP 1 applic HS [facility] Administration Heparin Sodium (Porcine) 5,000 unit 08/04/16 14:00 08/07/16 07:31 Heparin - SQ 5,000 unit TID [facility] Administration Ceftriaxone Sodium 100 mls @ 200 mls/hr 08/05/16 10:00 08/07/16 10:40 Rocephin 2gm Ivpb (Pre-Docked) IVPB 200 mls/hr DAILY [facility] Administration Azithromycin 250 mls @ 250 mls/hr 08/04/16 16:30 08/07/16 10:39 Zithromax 500mg Ivpb (Pre-Docked) IVPB 250 mls/hr DAILY [facility] Administration Methylprednisolone Sodium Succinate 40 mg 08/04/16 16:15 08/07/16 10:39 Solu-Medrol - IVPB 40 mg DAILY [facility] Administration Mupirocin 1 applic 08/04/16 17:00 08/07/16 10:41 Bactroban Ointment (For Decolonization) - NS 08/09/16 16:59 1 inch BID [facility] Administration Pantoprazole Sodium 40 mg 08/05/16 10:00 08/07/16 10:41 Protonix - PO 40 mg DAILY [facility] Administration Objective: Vital Signs Period Temp Pulse Resp BP Sys/[place] Pulse Ox Last 24 Hr 98 F-98.8 F 72-106 20-22 140-161/88-101 93-95 Physical Exam: General: NAD, A&Ox3 Lungs: CTA bilaterally Heart: RRR, S1S2 Abd: Soft, non-tender, non-distended. Normoactive bowel sounds Ext: Warm, well-perfused. 2+ DP/PT bilaterally Neuro: CN 2-12 intact CBCD WBC 16.9 K/mm3 (4.0-10.0) H 08/07/16 05:25 RBC 4.82 M/mm3 (4.00-5.60) 08/07/16 05:25 Hgb 14.2 GM/dL (11.7-16.9) 08/07/16 05:25 Hct 43.2 % (35.4-49) 08/07/16 05:25 MCV 89.6 fl (80-96) 08/07/16 05:25 MCHC 33.0 g/dl (32.0-35.9) 08/07/16 05:25 RDW 15.0 % (11.9-15.9) 08/07/16 05:25 Plt Count 302 K/MM3 (134-434) 08/07/16 05:25 MPV 10.0 fl (7.5-11.1) 08/07/16 05:25 CMP Sodium 143 mmol/L (136-145) 08/07/16 05:25 Potassium 3.8 mmol/L (3.5-5.1) 08/07/16 05:25 Chloride 105 mmol/L (98-107) 08/07/16 05:25 Carbon Dioxide 27 mmol/L (21-32) 08/07/16 05:25 Anion Gap 11 (8-16) 08/07/16 05:25 BUN 38 mg/dL (7-18) H 08/07/16 05:25 Creatinine 1.6 mg/dL (0.7-1.3) H 08/07/16 05:25 Creat Clearance w eGFR 37.71 (>60) 08/05/16 05:00 Random Glucose 111 mg/dL (74-106) H D 08/07/16 05:25 Calcium 8.2 mg/dL (8.5-10.1) L 08/07/16 05:25 Total Bilirubin 0.3 mg/dL (0.2-1.0) D 08/05/16 05:00 AST 26 U/L (15-37) 08/05/16 05:00 ALT 22 U/L (12-78) 08/05/16 05:00 Alkaline Phosphatase 86 U/L (45-117) 08/05/16 05:00 Total Protein 6.2 g/dl (6.4-8.2) L 08/05/16 05:00 Albumin 2.4 g/dl (3.4-5.0) L 08/05/16 05:00 CARDIAC ENZYMES Creatine Kinase 192 IU/L (39-308) 08/04/16 09:44 Troponin I 0.11 ng/ml (0.00-0.05) H D 08/05/16 05:00 Microbiology 08/06/16 08:00 Sputum - Expectorated Gram Stain - Final 08/06/16 08:00 Sputum - Expectorated Sputum Culture - Preliminary NORMAL RESPIRATORY MILLI 08/04/16 07:57 Nasopharyngeal Swab Respiratory Virus Panel - Preliminary 08/04/16 16:30 Blood - Peripheral Venous Blood Culture - Preliminary NO GROWTH OBTAINED AFTER 48 HOURS, INCUBATION TO CONTINUE FOR 3 DAYS. 08/04/16 16:10 Blood - Peripheral Venous Blood Culture - Preliminary NO GROWTH OBTAINED AFTER 48 HOURS, INCUBATION TO CONTINUE FOR 3 DAYS. 08/05/16 08:15 Blood - Peripheral Venous TB Test (QFT) ([facility]) - Preliminary 08/04/16 21:40 Urine - Urine Clean Catch Urine Culture - Final NO GROWTH OBTAINED 08/04/16 21:40 Urine For Antigen Detection Legionella Antigen - Final 08/04/16 21:40 Urine For Antigen Detection Streptococcus pneumoniae Antigen (M - Final 08/04/16 07:57 Nasopharyngeal Swab Influenza Types A,B Antigen ([facility]) - Final 08/04/16 07:57 Nasopharyngeal Swab - Final Assessment: This is a 51 year old male with PMHx of HTN, hyperlipidemia, ETOH abuse who presented to the ED with worsening shortness of breath and was found to have acute hypoxic respiratory failure 2/2 community acquired pneumonia. Plan: 1) Pulmonary: Acute hypoxic respiratory failure, severe ARDS (PaO2/Fio2 71mmHg) , community acquired pneumonia - Patient on NC with saturations around 98% - Blood and sputum cultures as above - Influenza A&B negative - Continue Azithromycin (day #4) - Continue Ceftriaxone (Day #4) - Duonebs q6h scheduled - Appreciate pulmonary consult 2) Cardiology: HTN - BP above goal - Started on Norvasc today, continue to trend Elevated troponins - Per cardiology, likely demand ischemia, will need outpatient stress test - Continue ASA - Continue Lipitor Chronic systolic heart failure - Patient currently appears euvolemic - ECHO reviewed - Appreciate cardiology consult 3) : DOMENICA - Cr peaked at 2.7 on admission, now trending down to 1.6 - Continue workup per renal - Appreciate renal consult 4) Psych: Chronic ETOH abuse - No evidence of acute alcohol withdrawal - Librium prn - Continue to monitor 5) F/E/N: - Monitor electrolytes - Low sodium/diabetic diet 6) Prophylaxis: - OOB with assistance - Heparin 5,000u sq tid - PT evaluation 7) Dispo: - Requires continued inpatient care CODE STATUS: FULL CODE Visit type - Emergency Visit Emergency Visit: Yes ED Registration Date: 08/04/16 Care time: The patient presented to the Emergency Department on the above date and was hospitalized for further evaluation of their emergent condition. - New Patient This patient is new to me today: Yes Date on this admission: 08/07/16 - Critical Care Critical Care patient: No
[2016-08-07 14:19] LABS: HEP B SURFACE AB Reactive (.)
[2016-08-07] MEDS ORDERED: amLODIPine BESYLATE 5 MG TABLET (FP) PO ONE (14:45)
--- NOTE | 2016-08-07 15:08 | PN ---
Progress Note, Physician History of Present Illness: Pt seen and examined at bedside. He is awake and alert. He feels much better today than he did on Sunday. - Current Medication List Current Medications: Active Medications Albuterol Sulfate (Ventolin 0.083% Nebulizer Soln -) 1 amp NEB Q4H PRN PRN Reason: SHORT OF BREATH/WHEEZING Albuterol/Ipratropium (Duoneb -) 1 amp NEB Q6HPO [facility] Last Admin: 08/07/16 11:03 Dose: 1 amp Amlodipine Besylate (Norvasc -) 10 mg PO DAILY [facility] Aspirin (Asa -) 81 mg PO DAILY [facility] Last Admin: 08/07/16 10:41 Dose: 81 mg Atorvastatin Calcium (Lipitor -) 20 mg PO HS [facility] Last Admin: 08/06/16 21:57 Dose: 20 mg Chlordiazepoxide HCl (Librium -) 25 mg PO Q4H PRN PRN Reason: WITHDRAWAL(CONT SUBST) Chlorhexidine Gluconate (Hibiclens For Decolonization -) 1 applic TP HS [facility] Last Admin: 08/06/16 21:56 Dose: 1 applic Heparin Sodium (Porcine) (Heparin -) 5,000 unit SQ TID [facility] Last Admin: 08/07/16 14:12 Dose: 5,000 unit Ceftriaxone Sodium (Rocephin 2gm Ivpb (Pre-Docked)) 100 mls @ 200 mls/hr IVPB DAILY [facility] Last Admin: 08/07/16 10:40 Dose: 200 mls/hr Azithromycin (Zithromax 500mg Ivpb (Pre-Docked)) 250 mls @ 250 mls/hr IVPB DAILY [facility] Last Admin: 08/07/16 10:39 Dose: 250 mls/hr Methylprednisolone Sodium Succinate (Solu-Medrol -) 40 mg IVPB DAILY [facility] Last Admin: 08/07/16 10:39 Dose: 40 mg Mupirocin (Bactroban Ointment (For Decolonization) -) 1 applic NS BID [facility] Stop: 08/09/16 16:59 Last Admin: 08/07/16 10:41 Dose: 1 inch Pantoprazole Sodium (Protonix -) 40 mg PO DAILY [facility] Last Admin: 08/07/16 10:41 Dose: 40 mg - Objective Vital Signs: Vital Signs Temperature 98 F 08/07/16 02:00 Pulse Rate 84 08/07/16 09:54 Respiratory Rate 22 08/07/16 06:00 Blood Pressure 140/100 08/07/16 06:00 O2 Sat by Pulse Oximetry (%) 95 08/07/16 09:54 Constitutional: Yes: Calm Eyes: Yes: Conjunctiva Clear HENT: Yes: Atraumatic Neck: Yes: Supple Cardiovascular: Yes: S1, S2 Respiratory: Yes: CTA Bilaterally, On Nasal O2 Gastrointestinal: Yes: Soft, Abdomen, Obese Genitourinary: Yes: WNL Musculoskeletal: Yes: WNL Extremities: Yes: WNL Edema: No Neurological: Yes: Oriented Psychiatric: Yes: Oriented Labs: CBC, BMP 08/07/16 05:25 08/07/16 05:25 INR, PTT INR 1.12 (0.82-1.09) 08/04/16 03:45 Problem List - Problems (1) DOMENICA (acute kidney injury) Code(s): N17.9 - ACUTE KIDNEY FAILURE, UNSPECIFIED (2) ARDS (adult respiratory distress syndrome) Code(s): J80 - ACUTE RESPIRATORY DISTRESS SYNDROME (3) Elevated troponin Code(s): R74.8 - ABNORMAL LEVELS OF OTHER SERUM ENZYMES (4) HLD (hyperlipidemia) Code(s): E78.5 - HYPERLIPIDEMIA, UNSPECIFIED (5) HTN (hypertension) Code(s): I10 - ESSENTIAL (PRIMARY) HYPERTENSION (6) Respiratory failure with hypoxia Code(s): J96.91 - RESPIRATORY FAILURE, UNSPECIFIED WITH HYPOXIA Assessment/Plan Current Medications Generic Name Dose Route Start Last Admin Trade Name Freq PRN Reason Stop Dose Admin Albuterol Sulfate 1 amp 08/07/16 10:43 Ventolin 0.083% Nebulizer Soln - NEB Q4H PRN SHORT OF BREATH/WHEEZING Albuterol/Ipratropium 1 amp 08/04/16 18:00 08/07/16 11:03 Duoneb - NEB 1 amp Q6HPO [facility] Administration Amlodipine Besylate 10 mg 08/08/16 10:00 Norvasc - PO DAILY [facility] Aspirin 81 mg 08/05/16 10:00 08/07/16 10:41 Asa - PO 81 mg DAILY [facility] Administration Atorvastatin Calcium 20 mg 08/05/16 22:00 08/06/16 21:57 Lipitor - PO 20 mg HS [facility] Administration Chlordiazepoxide HCl 25 mg 08/06/16 17:50 Librium - PO Q4H PRN WITHDRAWAL(CONT SUBST) Chlorhexidine Gluconate 1 applic 08/04/16 22:00 08/06/16 21:56 Hibiclens For Decolonization - TP 1 applic HS [facility] Administration Heparin Sodium (Porcine) 5,000 unit 08/04/16 14:00 08/07/16 14:12 Heparin - SQ 5,000 unit TID [facility] Administration Ceftriaxone Sodium 100 mls @ 200 mls/hr 08/05/16 10:00 08/07/16 10:40 Rocephin 2gm Ivpb (Pre-Docked) IVPB 200 mls/hr DAILY [facility] Administration Azithromycin 250 mls @ 250 mls/hr 08/04/16 16:30 08/07/16 10:39 Zithromax 500mg Ivpb (Pre-Docked) IVPB 250 mls/hr DAILY [facility] Administration Methylprednisolone Sodium Succinate 40 mg 08/04/16 16:15 08/07/16 10:39 Solu-Medrol - IVPB 40 mg DAILY [facility] Administration Mupirocin 1 applic 08/04/16 17:00 08/07/16 10:41 Bactroban Ointment (For Decolonization) - NS 08/09/16 16:59 1 inch BID [facility] Administration Pantoprazole Sodium 40 mg 08/05/16 10:00 08/07/16 10:41 Protonix - PO 40 mg DAILY [facility] Administration Laboratory Tests 08/04/16 08/04/16 08/04/16 17:30 18:28 18:30 KRISTOFER M-Rosas Cold Agglutinins ARMANI Screen Pending c-ANCA Pending Proteinase 3 (PR3) Pending p-ANCA Pending Atypical p-ANCA Pending Myeloperoxidase Ab Pending Double Strand DNA Ab Glomerular Base Memb Ab Complement C3 206 H Complement C4 39 Hepatitis A Ab Total Negative Hep Bs Antigen Negative Hep Bs Antibody Reactive Hep B Core Total Ab Negative HIV 1&2 Antibody Screen Negative HIV P24 Antigen Negative RSV Ag Report Status Anti-Streptolysin Scrn 08/04/16 08/04/16 08/05/16 18:30 18:30 05:00 KRISTOFER M-Rosas Pending Cold Agglutinins ARMANI Screen c-ANCA Proteinase 3 (PR3) p-ANCA Atypical p-ANCA Myeloperoxidase Ab Double Strand DNA Ab <1 Glomerular Base Memb Ab 3 Complement C3 Complement C4 Hepatitis A Ab Total Hep Bs Antigen Hep Bs Antibody Hep B Core Total Ab HIV 1&2 Antibody Screen HIV P24 Antigen RSV Ag Report Status Anti-Streptolysin Scrn < 200 08/05/16 08/06/16 08:15 08:00 KRISTOFER M-Rosas Cold Agglutinins Pending ARMANI Screen c-ANCA Proteinase 3 (PR3) p-ANCA Atypical p-ANCA Myeloperoxidase Ab Double Strand DNA Ab Glomerular Base Memb Ab Complement C3 Complement C4 Hepatitis A Ab Total Hep Bs Antigen Hep Bs Antibody Hep B Core Total Ab HIV 1&2 Antibody Screen HIV P24 Antigen RSV Ag Report Status Negative Anti-Streptolysin Scrn Impression 1. DOMENICA 2. sepsis 3. HTN 4. hyperlipidemia 5. ARDS 6. lactic acidosis 7. CHF with systolic dysfunction 8. resp failure requiring Bipap 9. hypoxia Plan - renal function is improving - repeat labs in am - cxr reviewed and shows improvement - unlikely vasculitis - will follow pt closely - renal workup is in progress Dr Rosa
--- NOTE | 2016-08-07 15:39 | PN ---
Progress Note (short form) - Note Progress Note: CC: sob S: Breathing continues to improve. no cp, palps, dizziness, orthopnea. Current Medications Albuterol Sulfate (Ventolin 0.083% Nebulizer Soln -) 1 amp NEB Q4H PRN PRN Reason: SHORT OF BREATH/WHEEZING Albuterol/Ipratropium (Duoneb -) 1 amp NEB Q6HPO [facility] Last Admin: 08/07/16 11:03 Dose: 1 amp Amlodipine Besylate (Norvasc -) 10 mg PO DAILY [facility] Aspirin (Asa -) 81 mg PO DAILY [facility] Last Admin: 08/07/16 10:41 Dose: 81 mg Atorvastatin Calcium (Lipitor -) 20 mg PO HS [facility] Last Admin: 08/06/16 21:57 Dose: 20 mg Chlordiazepoxide HCl (Librium -) 25 mg PO Q4H PRN PRN Reason: WITHDRAWAL(CONT SUBST) Chlorhexidine Gluconate (Hibiclens For Decolonization -) 1 applic TP HS [facility] Last Admin: 08/06/16 21:56 Dose: 1 applic Heparin Sodium (Porcine) (Heparin -) 5,000 unit SQ TID [facility] Last Admin: 08/07/16 14:12 Dose: 5,000 unit Ceftriaxone Sodium (Rocephin 2gm Ivpb (Pre-Docked)) 100 mls @ 200 mls/hr IVPB DAILY [facility] Last Admin: 08/07/16 10:40 Dose: 200 mls/hr Azithromycin (Zithromax 500mg Ivpb (Pre-Docked)) 250 mls @ 250 mls/hr IVPB DAILY [facility] Last Admin: 08/07/16 10:39 Dose: 250 mls/hr Methylprednisolone Sodium Succinate (Solu-Medrol -) 40 mg IVPB DAILY [facility] Last Admin: 08/07/16 10:39 Dose: 40 mg Mupirocin (Bactroban Ointment (For Decolonization) -) 1 applic NS BID [facility] Stop: 08/09/16 16:59 Last Admin: 08/07/16 10:41 Dose: 1 inch Pantoprazole Sodium (Protonix -) 40 mg PO DAILY [facility] Last Admin: 08/07/16 10:41 Dose: 40 mg Vital Signs Period Temp Pulse Resp BP Sys/[place] Pulse Ox Last 24 Hr 98 F 72-106 20-22 140-161/88-101 93-95 Intake & Output 08/05/16 08/06/16 08/07/16 08/08/16 07:59 07:59 07:59 07:59 Intake Total 3323 248 7253 Output Total 2000 1800 2200 Balance -900 -1000 -780 Weight 240 lb 4.862 oz 240 lb 4.862 oz 242 lb 8.136 oz Constitutional: Yes: No Distress, Calm Eyes: Yes: WNL HENT: Yes: WNL Neck: Yes: WNL no jvd Cardiovascular: Yes: Regular Rate and Rhythm nl s1, s2 no mrg. non-displaced pmi Respiratory: Yes: Rales, Rhonchi + bs soft nt nd Edema: No Labs: CBC, BMP 08/07/16 05:25 08/07/16 05:25 Laboratory Tests 08/07/16 05:25 Magnesium 2.6 H CXR today improved. EKG sinus tach, non-specific lateral STT wave abnormalities, likely strain tele: echo: mild lv dilation, mild reduced LV function. nl rv 1+ ar, mr, tr. Mild ao dilation. CXR: diffuse infiltrates, mild sparing of the ADITYA. No effusions. by my review ? ards pattern Assessment/Plan 51 yo heavy drinker with h/o HTN, HL who presents with acute onset of sob. SOB/ARDS - Likely not cardiac etiology. Infection vs. aspiration. Ongoing management per pmd, pulm. CXR not consistent with pulmonary edema, would not diurese. Mild lv dysfunction - May be acute in the setting of illness/infection vs. chronic secondary to heavy etoh use. - Currently euvolemic. - HF regimen as mentioned below. - Recommend repeat echo and stress test as outpatient once clinical condition improves. Elevated troponin - Intermediate elevation not c/w ACS. Likely secondary to demand. May have underlying CAD and would benefit from stress testing as outpatient. -Does not need urgent ischemic work up. - started asa, statin. HTN - held olmesartan in setting of renal dysfunction. on norvasc. - suboptimal control today. norvasc uptitrated. adding hydralazine. CKD with proteinuria - unknown baseline. mgm't per renal. etoh - cessation counseling.
[2016-08-07] MEDS: ATORVASTATIN CA 20 MG TABLET (FP) PO SCH (22:45)
[2016-08-07] MEDS: hydrALAZINE HCL 10 MG TABLET PO SCH (23:06)
[2016-08-07] MEDS: CHLORHEXIDINE GLUCONATE 4% CLEANSER FOR DECOLONIZATION TP SCH (23:06)
[2016-08-08] MEDS: ALBUTEROL SO4 2.5/IPRATROPIUM 0.5 INH SOL 3 ML VIAL.NEB. NEB SCH ×4 (00:05→17:20)
[2016-08-08 00:06] LABS: A/G RATIO 0.7 (0.7-1.7); ALBUMIN 2.6 g/dL (2.9-4.4); GLOBULIN, TOTAL 3.5 g/dL (2.2-3.9); M-SPIKE Not Observed g/dL (Not Observed); TOTAL PROTEIN 6.1 g/dL (6.0-8.5)
[2016-08-08] MEDS: HEPARIN NA (PORCINE) 5,000 UNITS/ML 1ML VIAL SQ SCH ×3 (06:26→21:53)
[2016-08-08] MEDS ORDERED: amLODIPine BESYLATE 10 MG TABLET (FP) PO ONE (07:00)
[2016-08-08] MEDS ORDERED: chlordiazePOXIDE HCL 25 MG CAPSULE PO PRN (07:44)
[2016-08-08] MEDS ORDERED: ALBUTEROL SO4 0.083% IH SOL 2.5 MG/3 ML VIAL.NEB. NEB PRN (07:44)
[2016-08-08 07:47] LABS: MCHC 32.5 g/dl (32.0-35.9); MEAN CELL VOLUME 89.3 fl (80-96); MEAN PLT VOLUME 9.8 fl (7.5-11.1); PLATELET COUNT 305 K/MM3 (134-434); WHITE BLOOD COUNT 17.2 K/mm3 (4.0-10.0)
[2016-08-08 08:33] LABS: CALCIUM 8.4 mg/dL (8.5-10.1); COCKROFT - GAULT 102.46; CREATININE 1.4 mg/dL (0.7-1.3)
[2016-08-08 09:23] LABS: METAMYELOCYTE 1 % (0-2)
[2016-08-08 09:24] LABS: PLATELET ESTIMATE ADEQUATE (NORMAL)
[2016-08-08] MEDS: hydrALAZINE HCL 10 MG TABLET PO SCH ×2 (09:33→22:05)
[2016-08-08] MEDS: PANTOPRAZOLE 40 MG TABLET (FP) PO SCH (09:33)
[2016-08-08] MEDS: ASPIRIN 81 MG CHEWABLE TABLETS PO SCH (09:34)
[2016-08-08] MEDS: methylPREDNISolone NA SUCC 40 MG/1 ML VIAL IVPB SCH (09:38)
[2016-08-08] MEDS: CEFTRIAXONE 100 ML IVPB SCH (09:38)
[2016-08-08] MEDS ORDERED: AZITHROMYCIN IVPB 250 ML IVPB SCH (10:00)
[2016-08-08] MEDS ORDERED: MUPIROCIN 2% TOPICAL OINTMENT FOR DECOLONIZATION NS SCH (10:00)
[2016-08-08] MEDS ORDERED: amLODIPine BESYLATE 5 MG TABLET (FP) PO SCH (10:00)
--- NOTE | 2016-08-08 12:59 | PN ---
Progress Note (short form) - Note Progress Note: Subjective: The patient was seen and examined at the bedside, he reports feeling good today Remains hypertensive, increased Norvasc today, added Hydralazine Current Medications Generic Name Dose Route Start Last Admin Trade Name Freq PRN Reason Stop Dose Admin Albuterol Sulfate 1 amp 08/08/16 07:44 Ventolin 0.083% Nebulizer Soln - NEB Q4H PRN SHORT OF BREATH/WHEEZING Albuterol/Ipratropium 1 amp 08/08/16 12:00 Duoneb - NEB Q6HPO [facility] Amlodipine Besylate 10 mg 08/08/16 10:00 Norvasc - PO DAILY [facility] Aspirin 81 mg 08/08/16 10:00 08/08/16 09:34 Asa - PO 81 mg DAILY [facility] Administration Atorvastatin Calcium 20 mg 08/08/16 22:00 Lipitor - PO HS [facility] Chlordiazepoxide HCl 25 mg 08/08/16 07:44 Librium - PO Q4H PRN WITHDRAWAL(CONT SUBST) Heparin Sodium (Porcine) 5,000 unit 08/08/16 14:00 Heparin - SQ TID [facility] Hydralazine HCl 10 mg 08/07/16 22:00 08/08/16 09:33 Apresoline - PO 10 mg BID [facility] Administration Azithromycin 250 mls @ 250 mls/hr 08/08/16 10:00 08/08/16 11:19 Zithromax 500mg Ivpb (Pre-Docked) IVPB 250 mls/hr DAILY [facility] Administration Ceftriaxone Sodium 100 mls @ 200 mls/hr 08/08/16 10:00 08/08/16 09:38 Rocephin 2gm Ivpb (Pre-Docked) IVPB 200 mls/hr DAILY [facility] Administration Methylprednisolone Sodium Succinate 40 mg 08/08/16 10:00 08/08/16 09:38 Solu-Medrol - IVPB 40 mg DAILY [facility] Administration Pantoprazole Sodium 40 mg 08/08/16 10:00 08/08/16 09:33 Protonix - PO 40 mg DAILY [facility] Administration Objective: Vital Signs Period Temp Pulse Resp BP Sys/[place] Pulse Ox Last 24 Hr 97.4 F-97.9 F 85-102 20-22 147-160/95-110 95 Physical Exam: General: NAD, A&Ox3 Lungs: CTA bilaterally Heart: RRR, S1S2 Abd: Soft, non-tender, non-distended. Normoactive bowel sounds Ext: Warm, well-perfused. 2+ DP/PT bilaterally Neuro: CN 2-12 intact CBCD WBC 17.2 K/mm3 (4.0-10.0) H 08/08/16 06:40 RBC 5.15 M/mm3 (4.00-5.60) 08/08/16 06:40 Hgb 14.9 GM/dL (11.7-16.9) 08/08/16 06:40 Hct 45.9 % (35.4-49) 08/08/16 06:40 MCV 89.3 fl (80-96) 08/08/16 06:40 MCHC 32.5 g/dl (32.0-35.9) 08/08/16 06:40 RDW 15.0 % (11.9-15.9) 08/08/16 06:40 Plt Count 305 K/MM3 (134-434) 08/08/16 06:40 MPV 9.8 fl (7.5-11.1) 08/08/16 06:40 CMP Sodium 144 mmol/L (136-145) 08/08/16 06:40 Potassium 3.6 mmol/L (3.5-5.1) 08/08/16 06:40 Chloride 108 mmol/L (98-107) H 08/08/16 06:40 Carbon Dioxide 25 mmol/L (21-32) 08/08/16 06:40 Anion Gap 11 (8-16) 08/08/16 06:40 BUN 27 mg/dL (7-18) H D 08/08/16 06:40 Creatinine 1.4 mg/dL (0.7-1.3) H 08/08/16 06:40 Creat Clearance w eGFR 37.71 (>60) 08/05/16 05:00 Random Glucose 107 mg/dL (74-106) H 08/08/16 06:40 Calcium 8.4 mg/dL (8.5-10.1) L 08/08/16 06:40 Total Bilirubin 0.3 mg/dL (0.2-1.0) D 08/05/16 05:00 AST 26 U/L (15-37) 08/05/16 05:00 ALT 22 U/L (12-78) 08/05/16 05:00 Alkaline Phosphatase 86 U/L (45-117) 08/05/16 05:00 Total Protein 6.2 g/dl (6.4-8.2) L 08/05/16 05:00 Albumin 2.4 g/dl (3.4-5.0) L 08/05/16 05:00 CARDIAC ENZYMES Creatine Kinase 192 IU/L (39-308) 08/04/16 09:44 Troponin I 0.11 ng/ml (0.00-0.05) H D 08/05/16 05:00 Microbiology 08/06/16 08:00 Sputum - Expectorated Gram Stain - Final 08/06/16 08:00 Sputum - Expectorated Sputum Culture - Final NORMAL RESPIRATORY MILLI 08/04/16 16:30 Blood - Peripheral Venous Blood Culture - Preliminary NO GROWTH OBTAINED AFTER 72 HOURS, INCUBATION TO CONTINUE FOR 2 DAYS. 08/04/16 16:10 Blood - Peripheral Venous Blood Culture - Preliminary NO GROWTH OBTAINED AFTER 72 HOURS, INCUBATION TO CONTINUE FOR 2 DAYS. 08/04/16 07:57 Nasopharyngeal Swab Respiratory Virus Panel - Preliminary 08/05/16 08:15 Blood - Peripheral Venous TB Test (QFT) (SONIA) - Preliminary 08/04/16 21:40 Urine - Urine Clean Catch Urine Culture - Final NO GROWTH OBTAINED 08/04/16 21:40 Urine For Antigen Detection Legionella Antigen - Final 08/04/16 21:40 Urine For Antigen Detection Streptococcus pneumoniae Antigen (M - Final 08/04/16 07:57 Nasopharyngeal Swab Influenza Types A,B Antigen (SONIA) - Final 08/04/16 07:57 Nasopharyngeal Swab - Final Assessment: This is a 51 year old male with PMHx of HTN, hyperlipidemia, ETOH abuse who presented to the ED with worsening shortness of breath and was found to have acute hypoxic respiratory failure 2/2 community acquired pneumonia. Plan: 1) Pulmonary: Acute hypoxic respiratory failure, severe ARDS (PaO2/Fio2 71mmHg) , community acquired pneumonia - Patient on NC with saturations around 98% - Blood and sputum cultures as above - Influenza A&B negative - Continue Azithromycin (day #5) - Continue Ceftriaxone (Day #5) - Duonebs q6h scheduled - Appreciate pulmonary consult 2) Cardiology: HTN - BP above goal - Increased Norvasc today, added Hydralazine Elevated troponins - Per cardiology, likely demand ischemia, will need outpatient stress test - Continue ASA - Continue Lipitor Chronic systolic heart failure - Patient currently appears euvolemic - ECHO reviewed - Appreciate cardiology consult 3) : DOMENICA - Cr peaked at 2.7 on admission, now trending down to 1.4 - Continue workup per renal - Appreciate renal consult 4) Psych: Chronic ETOH abuse - No evidence of acute alcohol withdrawal - Librium prn - Continue to monitor 5) F/E/N: - Monitor electrolytes - Low sodium/diabetic diet 6) Prophylaxis: - OOB with assistance - Heparin 5,000u sq tid - PT evaluation 7) Dispo: - Requires continued inpatient care CODE STATUS: FULL CODE Visit type - Emergency Visit Emergency Visit: Yes ED Registration Date: 08/04/16 Care time: The patient presented to the Emergency Department on the above date and was hospitalized for further evaluation of their emergent condition. - New Patient This patient is new to me today: No - Critical Care Critical Care patient: No
--- NOTE | 2016-08-08 15:33 | PN ---
Progress Note, Physician History of Present Illness: Pt seen and examined at bedside. He is awake and alert. He feels that his breathing is improved. He denies fevers or chills. - Current Medication List Current Medications: Active Medications Albuterol Sulfate (Ventolin 0.083% Nebulizer Soln -) 1 amp NEB Q4H PRN PRN Reason: SHORT OF BREATH/WHEEZING Albuterol/Ipratropium (Duoneb -) 1 amp NEB Q6HPO [facility] Last Admin: 08/08/16 11:20 Dose: 1 amp Amlodipine Besylate (Norvasc -) 10 mg PO DAILY [facility] Aspirin (Asa -) 81 mg PO DAILY [facility] Last Admin: 08/08/16 09:34 Dose: 81 mg Atorvastatin Calcium (Lipitor -) 20 mg PO HS [facility] Chlordiazepoxide HCl (Librium -) 25 mg PO Q4H PRN PRN Reason: WITHDRAWAL(CONT SUBST) Heparin Sodium (Porcine) (Heparin -) 5,000 unit SQ TID [facility] Hydralazine HCl (Apresoline -) 10 mg PO BID [facility] Last Admin: 08/08/16 09:33 Dose: 10 mg Azithromycin (Zithromax 500mg Ivpb (Pre-Docked)) 250 mls @ 250 mls/hr IVPB DAILY [facility] Last Admin: 08/08/16 11:19 Dose: 250 mls/hr Ceftriaxone Sodium (Rocephin 2gm Ivpb (Pre-Docked)) 100 mls @ 200 mls/hr IVPB DAILY [facility] Last Admin: 08/08/16 09:38 Dose: 200 mls/hr Methylprednisolone Sodium Succinate (Solu-Medrol -) 40 mg IVPB DAILY [facility] Last Admin: 08/08/16 09:38 Dose: 40 mg Pantoprazole Sodium (Protonix -) 40 mg PO DAILY [facility] Last Admin: 08/08/16 09:33 Dose: 40 mg - Objective Vital Signs: Vital Signs Temperature 98.2 F 08/08/16 14:00 Pulse Rate 100 H 08/08/16 14:00 Respiratory Rate 22 08/08/16 14:00 Blood Pressure 149/97 08/08/16 12:00 O2 Sat by Pulse Oximetry (%) 97 08/08/16 09:00 Constitutional: Yes: Calm Eyes: Yes: Conjunctiva Clear HENT: Yes: Atraumatic Cardiovascular: Yes: S1, S2 Respiratory: Yes: On Nasal O2 Gastrointestinal: Yes: Soft, Abdomen, Obese Genitourinary: Yes: WNL Musculoskeletal: Yes: WNL Edema: No Neurological: Yes: Oriented Psychiatric: Yes: Oriented Labs: CBC, BMP 08/08/16 06:40 08/08/16 06:40 INR, PTT INR 1.12 (0.82-1.09) 08/04/16 03:45 Problem List - Problems (1) DOMENICA (acute kidney injury) Code(s): N17.9 - ACUTE KIDNEY FAILURE, UNSPECIFIED (2) ARDS (adult respiratory distress syndrome) Code(s): J80 - ACUTE RESPIRATORY DISTRESS SYNDROME (3) Elevated troponin Code(s): R74.8 - ABNORMAL LEVELS OF OTHER SERUM ENZYMES (4) HLD (hyperlipidemia) Code(s): E78.5 - HYPERLIPIDEMIA, UNSPECIFIED (5) HTN (hypertension) Code(s): I10 - ESSENTIAL (PRIMARY) HYPERTENSION (6) Respiratory failure with hypoxia Code(s): J96.91 - RESPIRATORY FAILURE, UNSPECIFIED WITH HYPOXIA Assessment/Plan Current Medications Generic Name Dose Route Start Last Admin Trade Name Freq PRN Reason Stop Dose Admin Albuterol Sulfate 1 amp 08/08/16 07:44 Ventolin 0.083% Nebulizer Soln - NEB Q4H PRN SHORT OF BREATH/WHEEZING Albuterol/Ipratropium 1 amp 08/08/16 12:00 08/08/16 11:20 Duoneb - NEB 1 amp Q6HPO [facility] Administration Amlodipine Besylate 10 mg 08/08/16 10:00 Norvasc - PO DAILY [facility] Aspirin 81 mg 08/08/16 10:00 08/08/16 09:34 Asa - PO 81 mg DAILY [facility] Administration Atorvastatin Calcium 20 mg 08/08/16 22:00 Lipitor - PO HS [facility] Chlordiazepoxide HCl 25 mg 08/08/16 07:44 Librium - PO Q4H PRN WITHDRAWAL(CONT SUBST) Heparin Sodium (Porcine) 5,000 unit 08/08/16 14:00 Heparin - SQ TID [facility] Hydralazine HCl 10 mg 08/07/16 22:00 08/08/16 09:33 Apresoline - PO 10 mg BID [facility] Administration Azithromycin 250 mls @ 250 mls/hr 08/08/16 10:00 08/08/16 11:19 Zithromax 500mg Ivpb (Pre-Docked) IVPB 250 mls/hr DAILY [facility] Administration Ceftriaxone Sodium 100 mls @ 200 mls/hr 08/08/16 10:00 08/08/16 09:38 Rocephin 2gm Ivpb (Pre-Docked) IVPB 200 mls/hr DAILY [facility] Administration Methylprednisolone Sodium Succinate 40 mg 08/08/16 10:00 08/08/16 09:38 Solu-Medrol - IVPB 40 mg DAILY [facility] Administration Pantoprazole Sodium 40 mg 08/08/16 10:00 08/08/16 09:33 Protonix - PO 40 mg DAILY [facility] Administration Impression 1. DOMENICA 2. sepsis 3. HTN 4. hyperlipidemia 5. ARDS 6. lactic acidosis 7. CHF with systolic dysfunction 8. resp failure requiring Bipap 9. hypoxia Plan - renal workup is in progress - renal function is stabilizing - cxr reviewed - unlikely vasculitis - will follow pt closely - pt is still on 4 liters NC, monitor oxygen Dr Rosa
--- NOTE | 2016-08-08 15:46 | PN ---
Progress Note (short form) - Note Progress Note: S: Breathing continues to improve. no cp, palps, dizziness, orthopnea. Current Medications Generic Name Dose Route Start Last Admin Trade Name Freq PRN Reason Stop Dose Admin Albuterol Sulfate 1 amp 08/08/16 07:44 Ventolin 0.083% Nebulizer Soln - NEB Q4H PRN SHORT OF BREATH/WHEEZING Albuterol/Ipratropium 1 amp 08/08/16 12:00 08/08/16 11:20 Duoneb - NEB 1 amp Q6HPO [facility] Administration Amlodipine Besylate 10 mg 08/08/16 10:00 Norvasc - PO DAILY [facility] Aspirin 81 mg 08/08/16 10:00 08/08/16 09:34 Asa - PO 81 mg DAILY [facility] Administration Atorvastatin Calcium 20 mg 08/08/16 22:00 Lipitor - PO HS [facility] Chlordiazepoxide HCl 25 mg 08/08/16 07:44 Librium - PO Q4H PRN WITHDRAWAL(CONT SUBST) Heparin Sodium (Porcine) 5,000 unit 08/08/16 14:00 08/08/16 15:39 Heparin - SQ 5,000 unit TID [facility] Administration Hydralazine HCl 10 mg 08/07/16 22:00 08/08/16 09:33 Apresoline - PO 10 mg BID [facility] Administration Azithromycin 250 mls @ 250 mls/hr 08/08/16 10:00 08/08/16 11:19 Zithromax 500mg Ivpb (Pre-Docked) IVPB 250 mls/hr DAILY [facility] Administration Ceftriaxone Sodium 100 mls @ 200 mls/hr 08/08/16 10:00 08/08/16 09:38 Rocephin 2gm Ivpb (Pre-Docked) IVPB 200 mls/hr DAILY [facility] Administration Methylprednisolone Sodium Succinate 40 mg 08/08/16 10:00 08/08/16 09:38 Solu-Medrol - IVPB 40 mg DAILY [facility] Administration Pantoprazole Sodium 40 mg 08/08/16 10:00 08/08/16 09:33 Protonix - PO 40 mg DAILY [facility] Administration Vital Signs Period Temp Pulse Resp BP Sys/[place] Pulse Ox Last 24 Hr 97.4 F-98.2 F 85-102 20-22 148-160/95-110 95-97 nad no jvd rrr s1s2 no mrg cta bl nl eff aaox3 no le e/c/c no jaundice diaphoresis CBC, BMP 08/08/16 06:40 08/08/16 06:40 EKG sinus tach, non-specific lateral STT wave abnormalities, likely strain echo: mild lv dilation, mild reduced LV function. nl rv 1+ ar, mr, tr. Mild ao dilation. Assessment/Plan 51 yo heavy drinker with h/o HTN, HL who presents with acute onset of sob. SOB/ARDS - Likely not cardiac etiology. Infection vs. aspiration. Ongoing management per pmd, pulm. CXR not consistent with pulmonary edema, would not diurese. Mild lv dysfunction - May be acute in the setting of illness/infection vs. chronic secondary to heavy etoh use. - Currently euvolemic. - HF regimen as mentioned below. - Recommend repeat echo and stress test as outpatient once clinical condition improves. Elevated troponin - Intermediate elevation not c/w ACS. Likely secondary to demand. May have underlying CAD and would benefit from stress testing as outpatient. -Does not need urgent ischemic work up. - started asa, statin. HTN - held olmesartan in setting of renal dysfunction. - cont norvasc and hydralazine. CKD with proteinuria - unknown baseline. mgm't per renal. etoh - cessation counseling.
--- NOTE | 2016-08-08 15:52 | PN ---
Progress Note (short form) - Note Progress Note: antibiotic day #5 ceftriaxone/zithromax doing well Vital Signs Period Temp Pulse Resp BP Sys/[place] Pulse Ox Last 24 Hr 97.4 F-98.2 F 85-102 20-22 148-160/95-110 95-97 cor-rrr lungs bibasilar crackles abd soft,nt ext no edema CBC, BMP 08/08/16 06:40 08/08/16 06:40 Microbiology 08/06/16 08:00 Sputum - Expectorated Gram Stain - Final 08/06/16 08:00 Sputum - Expectorated Sputum Culture - Final NORMAL RESPIRATORY MILLI 08/04/16 16:30 Blood - Peripheral Venous Blood Culture - Preliminary NO GROWTH OBTAINED AFTER 72 HOURS, INCUBATION TO CONTINUE FOR 2 DAYS. 08/04/16 16:10 Blood - Peripheral Venous Blood Culture - Preliminary NO GROWTH OBTAINED AFTER 72 HOURS, INCUBATION TO CONTINUE FOR 2 DAYS. 08/04/16 07:57 Nasopharyngeal Swab Respiratory Virus Panel - Preliminary 08/05/16 08:15 Blood - Peripheral Venous TB Test (QFT) (SONIA) - Preliminary 08/04/16 21:40 Urine - Urine Clean Catch Urine Culture - Final NO GROWTH OBTAINED 08/04/16 21:40 Urine For Antigen Detection Legionella Antigen - Final 08/04/16 21:40 Urine For Antigen Detection Streptococcus pneumoniae Antigen (M - Final 08/04/16 07:57 Nasopharyngeal Swab Influenza Types A,B Antigen (SONIA) - Final 08/04/16 07:57 Nasopharyngeal Swab - Final cxray improved a/p pneumonia- improving, oxygenation has improved as well day #5 antibiotics d/c zithromax continue ceftriaxone- ?switch to po in am DOMENICA- resolving HTN- meds being adjusted
--- NOTE | 2016-08-08 17:50 | PN ---
Progress Note, Physician History of Present Illness: PULMONARY ALERT,FEELING BETTER,LESS CONGESTED+ COUGH,LESS DYSPNEIC. O2 SAT 95% ON NASAL O2 - Current Medication List Current Medications: Active Medications Albuterol Sulfate (Ventolin 0.083% Nebulizer Soln -) 1 amp NEB Q4H PRN PRN Reason: SHORT OF BREATH/WHEEZING Albuterol/Ipratropium (Duoneb -) 1 amp NEB Q6HPO [facility] Last Admin: 08/08/16 17:20 Dose: 1 amp Amlodipine Besylate (Norvasc -) 10 mg PO DAILY [facility] Aspirin (Asa -) 81 mg PO DAILY [facility] Last Admin: 08/08/16 09:34 Dose: 81 mg Atorvastatin Calcium (Lipitor -) 20 mg PO HS [facility] Chlordiazepoxide HCl (Librium -) 25 mg PO Q4H PRN PRN Reason: WITHDRAWAL(CONT SUBST) Heparin Sodium (Porcine) (Heparin -) 5,000 unit SQ TID [facility] Last Admin: 08/08/16 15:39 Dose: 5,000 unit Hydralazine HCl (Apresoline -) 10 mg PO BID [facility] Last Admin: 08/08/16 09:33 Dose: 10 mg Ceftriaxone Sodium (Rocephin 2gm Ivpb (Pre-Docked)) 100 mls @ 200 mls/hr IVPB DAILY [facility] Last Admin: 08/08/16 09:38 Dose: 200 mls/hr Methylprednisolone Sodium Succinate (Solu-Medrol -) 40 mg IVPB DAILY [facility] Last Admin: 08/08/16 09:38 Dose: 40 mg Pantoprazole Sodium (Protonix -) 40 mg PO DAILY [facility] Last Admin: 08/08/16 09:33 Dose: 40 mg - Objective Vital Signs: Vital Signs Temperature 98.2 F 08/08/16 14:00 Pulse Rate 100 H 08/08/16 14:00 Respiratory Rate 22 08/08/16 14:00 Blood Pressure 149/97 08/08/16 12:00 O2 Sat by Pulse Oximetry (%) 95 08/08/16 15:52 Constitutional: Yes: Well Nourished, Calm Eyes: Yes: WNL HENT: Yes: WNL Neck: Yes: WNL Cardiovascular: Yes: Regular Rate and Rhythm, S1, S2 Respiratory: Yes: Rales (BILATERAL CRACKLES AND RHONCHI) Gastrointestinal: Yes: Normal Bowel Sounds, Soft Extremities: Yes: WNL Edema: No Labs: CBC, BMP 08/08/16 06:40 08/08/16 06:40 INR, PTT INR 1.12 (0.82-1.09) 08/04/16 03:45 - ....Imaging Chest X-ray: Report Reviewed, Image Reviewed (IMPROVING INFILTRATES) Problem List - Problems (1) HLD (hyperlipidemia) Code(s): E78.5 - HYPERLIPIDEMIA, UNSPECIFIED (2) HTN (hypertension) Code(s): I10 - ESSENTIAL (PRIMARY) HYPERTENSION (3) Acute hypoxemic respiratory failure Code(s): J96.01 - ACUTE RESPIRATORY FAILURE WITH HYPOXIA (4) ARDS (adult respiratory distress syndrome) Code(s): J80 - ACUTE RESPIRATORY DISTRESS SYNDROME (5) DOMENICA (acute kidney injury) Code(s): N17.9 - ACUTE KIDNEY FAILURE, UNSPECIFIED (6) Elevated troponin Code(s): R74.8 - ABNORMAL LEVELS OF OTHER SERUM ENZYMES (7) LV dysfunction Code(s): I51.9 - HEART DISEASE, UNSPECIFIED (8) Lactate blood increase Code(s): R79.89 - OTHER SPECIFIED ABNORMAL FINDINGS OF BLOOD CHEMISTRY (9) Sepsis Code(s): A41.9 - SEPSIS, UNSPECIFIED ORGANISM Assessment/Plan ASSESSMENT AND PLAN: Multilobar Pneumonia clinically improving ARDS improving Acute Kidney Injury improving HTN r/o COPD Exacerbation - antibiotics as per ID - inhaled bronchodilators - continue medrol - O2 to keep SpO2 >90% - BiPAP as needed to assist in work of breathing - OOB to chair - outpt PFTs DR TINSLEY
[2016-08-08] MEDS: ATORVASTATIN CA 20 MG TABLET (FP) PO SCH (21:53)
[2016-08-08] MEDS ORDERED: CHLORHEXIDINE GLUCONATE 4% CLEANSER FOR DECOLONIZATION TP SCH (22:00)
[2016-08-09 00:06] LABS: C-ANCA <1:20 titer (Neg:<1:20); MYELOPEROXIDASE ANTIBODY <9.0 U/mL (0.0-9.0); P-ANCA <1:20 titer (Neg:<1:20); PROTEINASE-3 ANTIBODY <3.5 U/mL (0.0-3.5)
[2016-08-09] MEDS: ALBUTEROL SO4 2.5/IPRATROPIUM 0.5 INH SOL 3 ML VIAL.NEB. NEB SCH ×4 (00:09→19:12)
[2016-08-09] MEDS: HEPARIN NA (PORCINE) 5,000 UNITS/ML 1ML VIAL SQ SCH ×3 (05:49→21:36)
[2016-08-09 07:48] LABS: MCH 28.9 pg (25.7-33.7); MCHC 32.5 g/dl (32.0-35.9); MEAN CELL VOLUME 89.1 fl (80-96); MEAN PLT VOLUME 9.4 fl (7.5-11.1); PLATELET COUNT 302 K/MM3 (134-434); RDW 14.5 % (11.9-15.9); WHITE BLOOD COUNT 18.2 K/mm3 (4.0-10.0)
[2016-08-09 08:10] LABS: CALCIUM 8.3 mg/dL (8.5-10.1); COCKROFT - GAULT 101.24; CREATININE 1.4 mg/dL (0.7-1.3)
[2016-08-09] MEDS ORDERED: PT OWN MED DRAWER 7, Y5N ONE ×3 (08:44→17:13)
[2016-08-09] MEDS: PANTOPRAZOLE 40 MG TABLET (FP) PO SCH (09:01)
[2016-08-09] MEDS: hydrALAZINE HCL 10 MG TABLET PO SCH ×3 (09:01→21:18)
[2016-08-09] MEDS: methylPREDNISolone NA SUCC 40 MG/1 ML VIAL IVPB SCH (09:01)
[2016-08-09] MEDS: ASPIRIN 81 MG CHEWABLE TABLETS PO SCH (09:01)
[2016-08-09] MEDS: CEFTRIAXONE 100 ML IVPB SCH (09:01)
[2016-08-09] MEDS ORDERED: AZITHROMYCIN 250 MG TABLET (FP) PO SCH (10:00)
[2016-08-09] MEDS: amLODIPine BESYLATE 10 MG TABLET (FP) PO SCH (10:14)
--- NOTE | 2016-08-09 11:31 | PN ---
Progress Note, Physician History of Present Illness: Pt seen and examined at bedside. He is awake and alert. He is off of oxygen. He denies shortness of breath. - Current Medication List Current Medications: Active Medications Albuterol Sulfate (Ventolin 0.083% Nebulizer Soln -) 1 amp NEB Q4H PRN PRN Reason: SHORT OF BREATH/WHEEZING Albuterol/Ipratropium (Duoneb -) 1 amp NEB Q6HPO [facility] Last Admin: 08/09/16 06:11 Dose: 1 amp Amlodipine Besylate (Norvasc -) 10 mg PO DAILY [facility] Last Admin: 08/09/16 10:14 Dose: 10 mg Aspirin (Asa -) 81 mg PO DAILY [facility] Last Admin: 08/09/16 09:01 Dose: 81 mg Atorvastatin Calcium (Lipitor -) 20 mg PO HS [facility] Last Admin: 08/08/16 21:53 Dose: 20 mg Chlordiazepoxide HCl (Librium -) 25 mg PO Q4H PRN PRN Reason: WITHDRAWAL(CONT SUBST) Heparin Sodium (Porcine) (Heparin -) 5,000 unit SQ TID [facility] Last Admin: 08/09/16 05:49 Dose: 5,000 unit Hydralazine HCl (Apresoline -) 10 mg PO BID [facility] Last Admin: 08/09/16 09:01 Dose: 10 mg Ceftriaxone Sodium (Rocephin 2gm Ivpb (Pre-Docked)) 100 mls @ 200 mls/hr IVPB DAILY [facility] Last Admin: 08/09/16 09:01 Dose: 200 mls/hr Methylprednisolone Sodium Succinate (Solu-Medrol -) 40 mg IVPB DAILY [facility] Last Admin: 08/09/16 09:01 Dose: 40 mg Pantoprazole Sodium (Protonix -) 40 mg PO DAILY [facility] Last Admin: 08/09/16 09:01 Dose: 40 mg - Objective Vital Signs: Vital Signs Temperature 97.9 F 08/09/16 11:07 Pulse Rate 92 H 08/09/16 11:07 Respiratory Rate 20 08/09/16 11:07 Blood Pressure 149/102 08/09/16 11:07 O2 Sat by Pulse Oximetry (%) 94 L 08/08/16 21:00 Constitutional: Yes: Calm Eyes: Yes: Conjunctiva Clear Neck: Yes: Supple Cardiovascular: Yes: S1, S2 Respiratory: Yes: Other (scattered rhonchi) Gastrointestinal: Yes: Normal Bowel Sounds, Soft, Abdomen, Obese Genitourinary: Yes: WNL Musculoskeletal: Yes: WNL Edema: No Neurological: Yes: Oriented Psychiatric: Yes: Oriented Labs: CBC, BMP 08/09/16 06:20 08/09/16 06:20 INR, PTT INR 1.12 (0.82-1.09) 08/04/16 03:45 Problem List - Problems (1) DOMENICA (acute kidney injury) Code(s): N17.9 - ACUTE KIDNEY FAILURE, UNSPECIFIED (2) ARDS (adult respiratory distress syndrome) Code(s): J80 - ACUTE RESPIRATORY DISTRESS SYNDROME (3) Elevated troponin Code(s): R74.8 - ABNORMAL LEVELS OF OTHER SERUM ENZYMES (4) HLD (hyperlipidemia) Code(s): E78.5 - HYPERLIPIDEMIA, UNSPECIFIED (5) HTN (hypertension) Code(s): I10 - ESSENTIAL (PRIMARY) HYPERTENSION (6) Respiratory failure with hypoxia Code(s): J96.91 - RESPIRATORY FAILURE, UNSPECIFIED WITH HYPOXIA Assessment/Plan Current Medications Generic Name Dose Route Start Last Admin Trade Name Freq PRN Reason Stop Dose Admin Albuterol Sulfate 1 amp 08/08/16 07:44 Ventolin 0.083% Nebulizer Soln - NEB Q4H PRN SHORT OF BREATH/WHEEZING Albuterol/Ipratropium 1 amp 08/08/16 12:00 08/09/16 06:11 Duoneb - NEB 1 amp Q6HPO [facility] Administration Amlodipine Besylate 10 mg 08/08/16 10:00 08/09/16 10:14 Norvasc - PO 10 mg DAILY [facility] Administration Aspirin 81 mg 08/08/16 10:00 08/09/16 09:01 Asa - PO 81 mg DAILY [facility] Administration Atorvastatin Calcium 20 mg 08/08/16 22:00 08/08/16 21:53 Lipitor - PO 20 mg HS [facility] Administration Chlordiazepoxide HCl 25 mg 08/08/16 07:44 Librium - PO Q4H PRN WITHDRAWAL(CONT SUBST) Heparin Sodium (Porcine) 5,000 unit 08/08/16 14:00 08/09/16 05:49 Heparin - SQ 5,000 unit TID [facility] Administration Hydralazine HCl 10 mg 08/07/16 22:00 08/09/16 09:01 Apresoline - PO 10 mg BID [facility] Administration Ceftriaxone Sodium 100 mls @ 200 mls/hr 08/08/16 10:00 08/09/16 09:01 Rocephin 2gm Ivpb (Pre-Docked) IVPB 200 mls/hr DAILY [facility] Administration Methylprednisolone Sodium Succinate 40 mg 08/08/16 10:00 08/09/16 09:01 Solu-Medrol - IVPB 40 mg DAILY [facility] Administration Pantoprazole Sodium 40 mg 08/08/16 10:00 08/09/16 09:01 Protonix - PO 40 mg DAILY [facility] Administration Laboratory Tests 08/04/16 08/04/16 08/04/16 18:30 18:30 18:30 KRISTOFER M-Rosas Not observed Cold Agglutinins ARMANI Screen Negative c-ANCA <1:20 Proteinase 3 (PR3) <3.5 p-ANCA <1:20 Atypical p-ANCA <1:20 Myeloperoxidase Ab <9.0 Double Strand DNA Ab <1 Glomerular Base Memb Ab 3 Hep Bs Antigen Negative Hep Bs Antibody Reactive Hep B Core Total Ab Negative RSV Ag Report Status Anti-Streptolysin Scrn 08/05/16 08/05/16 08/06/16 05:00 08:15 08:00 KRISTOFER M-Rosas Cold Agglutinins Negative ARMANI Screen c-ANCA Proteinase 3 (PR3) p-ANCA Atypical p-ANCA Myeloperoxidase Ab Double Strand DNA Ab Glomerular Base Memb Ab Hep Bs Antigen Hep Bs Antibody Hep B Core Total Ab RSV Ag Report Status Negative Anti-Streptolysin Scrn < 200 Impression 1. DOMENICA 2. sepsis 3. HTN 4. hyperlipidemia 5. ARDS 6. lactic acidosis 7. CHF with systolic dysfunction 8. resp failure requiring Bipap 9. hypoxia Plan - renal function stabilizing - taper down steroids as tolerated - pt is now on room air - will see pt in office - monitor blood pressure on hydralazine - will follow Dr Rosa
--- NOTE | 2016-08-09 11:55 | PN ---
Progress Note (short form) - Note Progress Note: Subjective: The patient was seen and examined at the bedside, he is off O2 and saturation is 95%. He reports walking around the room and is feeling better Current Medications Generic Name Dose Route Start Last Admin Trade Name Freq PRN Reason Stop Dose Admin Albuterol Sulfate 1 amp 08/08/16 07:44 Ventolin 0.083% Nebulizer Soln - NEB Q4H PRN SHORT OF BREATH/WHEEZING Albuterol/Ipratropium 1 amp 08/08/16 12:00 08/09/16 06:11 Duoneb - NEB 1 amp Q6HPO [facility] Administration Amlodipine Besylate 10 mg 08/08/16 10:00 08/09/16 10:14 Norvasc - PO 10 mg DAILY [facility] Administration Aspirin 81 mg 08/08/16 10:00 08/09/16 09:01 Asa - PO 81 mg DAILY [facility] Administration Atorvastatin Calcium 20 mg 08/08/16 22:00 08/08/16 21:53 Lipitor - PO 20 mg HS [facility] Administration Chlordiazepoxide HCl 25 mg 08/08/16 07:44 Librium - PO Q4H PRN WITHDRAWAL(CONT SUBST) Heparin Sodium (Porcine) 5,000 unit 08/08/16 14:00 08/09/16 05:49 Heparin - SQ 5,000 unit TID [facility] Administration Hydralazine HCl 10 mg 08/07/16 22:00 08/09/16 09:01 Apresoline - PO 10 mg BID [facility] Administration Ceftriaxone Sodium 100 mls @ 200 mls/hr 08/08/16 10:00 08/09/16 09:01 Rocephin 2gm Ivpb (Pre-Docked) IVPB 200 mls/hr DAILY [facility] Administration Methylprednisolone Sodium Succinate 40 mg 08/08/16 10:00 08/09/16 09:01 Solu-Medrol - IVPB 40 mg DAILY [facility] Administration Pantoprazole Sodium 40 mg 08/08/16 10:00 08/09/16 09:01 Protonix - PO 40 mg DAILY [facility] Administration Objective: Vital Signs Period Temp Pulse Resp BP Sys/[place] Pulse Ox Last 24 Hr 97.7 F-98.3 F 89-102 20-22 148-156/87-102 94-95 Physical Exam: General: NAD, A&Ox3 Lungs: CTA bilaterally Heart: RRR, S1S2 Abd: Soft, non-tender, non-distended. Normoactive bowel sounds Ext: Warm, well-perfused. 2+ DP/PT bilaterally Neuro: CN 2-12 intact CBCD WBC 18.2 K/mm3 (4.0-10.0) H 08/09/16 06:20 RBC 5.07 M/mm3 (4.00-5.60) 08/09/16 06:20 Hgb 14.6 GM/dL (11.7-16.9) 08/09/16 06:20 Hct 45.1 % (35.4-49) 08/09/16 06:20 MCV 89.1 fl (80-96) 08/09/16 06:20 MCHC 32.5 g/dl (32.0-35.9) 08/09/16 06:20 RDW 14.5 % (11.9-15.9) 08/09/16 06:20 Plt Count 302 K/MM3 (134-434) 08/09/16 06:20 MPV 9.4 fl (7.5-11.1) 08/09/16 06:20 CMP Sodium 144 mmol/L (136-145) 08/09/16 06:20 Potassium 3.7 mmol/L (3.5-5.1) 08/09/16 06:20 Chloride 107 mmol/L (98-107) 08/09/16 06:20 Carbon Dioxide 26 mmol/L (21-32) 08/09/16 06:20 Anion Gap 11 (8-16) 08/09/16 06:20 BUN 23 mg/dL (7-18) H 08/09/16 06:20 Creatinine 1.4 mg/dL (0.7-1.3) H 08/09/16 06:20 Creat Clearance w eGFR 37.71 (>60) 08/05/16 05:00 Random Glucose 91 mg/dL (74-106) 08/09/16 06:20 Calcium 8.3 mg/dL (8.5-10.1) L 08/09/16 06:20 Total Bilirubin 0.3 mg/dL (0.2-1.0) D 08/05/16 05:00 AST 26 U/L (15-37) 08/05/16 05:00 ALT 22 U/L (12-78) 08/05/16 05:00 Alkaline Phosphatase 86 U/L (45-117) 08/05/16 05:00 Total Protein 6.2 g/dl (6.4-8.2) L 08/05/16 05:00 Albumin 2.4 g/dl (3.4-5.0) L 08/05/16 05:00 CARDIAC ENZYMES Creatine Kinase 192 IU/L (39-308) 08/04/16 09:44 Troponin I 0.11 ng/ml (0.00-0.05) H D 08/05/16 05:00 Microbiology 08/04/16 07:57 Nasopharyngeal Swab Respiratory Virus Panel - Preliminary 08/05/16 08:15 Blood - Peripheral Venous TB Test (QFT) ([facility]) - Preliminary 08/04/16 16:30 Blood - Peripheral Venous Blood Culture - Preliminary NO GROWTH OBTAINED AFTER 96 HOURS, INCUBATION TO CONTINUE FOR 1 DAYS. 08/04/16 16:10 Blood - Peripheral Venous Blood Culture - Preliminary NO GROWTH OBTAINED AFTER 96 HOURS, INCUBATION TO CONTINUE FOR 1 DAYS. 08/06/16 08:00 Sputum - Expectorated Gram Stain - Final 08/06/16 08:00 Sputum - Expectorated Sputum Culture - Final NORMAL RESPIRATORY MILLI 08/04/16 21:40 Urine - Urine Clean Catch Urine Culture - Final NO GROWTH OBTAINED 08/04/16 21:40 Urine For Antigen Detection Legionella Antigen - Final 08/04/16 21:40 Urine For Antigen Detection Streptococcus pneumoniae Antigen (M - Final 08/04/16 07:57 Nasopharyngeal Swab Influenza Types A,B Antigen (SONIA) - Final 08/04/16 07:57 Nasopharyngeal Swab - Final Assessment: This is a 51 year old male with PMHx of HTN, hyperlipidemia, ETOH abuse who presented to the ED with worsening shortness of breath and was found to have acute hypoxic respiratory failure 2/2 community acquired pneumonia. Plan: 1) Pulmonary: Acute hypoxic respiratory failure, severe ARDS (PaO2/Fio2 71mmHg) , community acquired pneumonia - Patient on NC with saturations around 98% - Blood and sputum cultures as above - Influenza A&B negative - Continue Azithromycin (Day #6) - Continue Ceftriaxone (Day #6) - Duonebs q6h scheduled - F/u chest CT today - Appreciate pulmonary consult 2) Cardiology: HTN - BP remains above goal - Continue Norvasc 10mg po daily - Increase Hydralazine to 10mg qid Elevated troponins - Per cardiology, likely demand ischemia, will need outpatient stress test - Continue ASA - Continue Lipitor Chronic systolic heart failure - Patient currently appears euvolemic - ECHO reviewed - Appreciate cardiology consult 3) : DOMENICA - Cr peaked at 2.7 on admission, now trending down to 1.4 - Continue workup per renal - Appreciate renal consult 4) Psych: Chronic ETOH abuse - No evidence of acute alcohol withdrawal - Librium prn - Continue to monitor 5) F/E/N: - Monitor electrolytes - Low sodium/diabetic diet 6) Prophylaxis: - OOB with assistance - Heparin 5,000u sq tid - PT evaluation 7) Dispo: - Requires continued inpatient care CODE STATUS: FULL CODE Visit type - Emergency Visit Emergency Visit: Yes ED Registration Date: 08/04/16 Care time: The patient presented to the Emergency Department on the above date and was hospitalized for further evaluation of their emergent condition. - New Patient This patient is new to me today: No - Critical Care Critical Care patient: No
--- NOTE | 2016-08-09 12:32 | EKG ---
Test Reason : Blood Pressure : / mmHG Vent. Rate : 089 BPM Atrial Rate : 089 BPM P-R Int : 152 ms QRS Dur : 090 ms QT Int : 378 ms P-R-T Axes : 066 008 044 degrees QTc Int : 459 ms POOR DATA QUALITY, INTERPRETATION MAY BE ADVERSELY AFFECTED NORMAL SINUS RHYTHM POSSIBLE LEFT ATRIAL ENLARGEMENT BORDERLINE ECG WHEN COMPARED WITH ECG OF 04-AUG-2016 11:16, NONSPECIFIC T WAVE ABNORMALITY, IMPROVED IN LATERAL LEADS QT HAS SHORTENED Confirmed by ERICK ADAMS, TED ([id number] on 08/09/2016 12:31:54 PM Referred By: MAYI MARTINEZ Confirmed By:TED SUAREZ MD
--- NOTE | 2016-08-09 13:25 | PN ---
Progress Note (short form) - Note Progress Note: PULMONARY VSS/AFEBRILE ANICTERIC CHEST SCATTERED RHONCHI S1S2 BS+ SOFT NO EDEMA LABS/MEDS/NOTES/IMAGING REVIEWED ASSESSMENT AND PLAN: Multilobar Pneumonia improved ARDS improving Acute Kidney Injury improving HTN r/o COPD Exacerbation - antibiotics as per ID - inhaled bronchodilators - medrol changed to prednisone - O2 to keep SpO2 >90% - BiPAP as needed to assist in work of breathing - OOB to chair - outpt PFTs CT chest no contrast R DOM ADAMS
[2016-08-09] MEDS: predniSONE 20 MG TABLET (UD) PO SCH (13:36)
[2016-08-09] MEDS: AZITHROMYCIN 250 MG TABLET (FP) PO SCH (14:55)
--- NOTE | 2016-08-09 16:00 | PN ---
Progress Note (short form) - Note Progress Note: antibiotic day #6 ceftriaxone/zithromax doing well Vital Signs Period Temp Pulse Resp BP Sys/Saln[place] Pulse Ox Last 24 Hr 97.7 F-98.3 F 89-103 20-22 148-156/87-102 94-97 cor-rrr lungs clear abd soft,nt ext no edema CBC, BMP /12/17 06:20 04/12/17 06:20 cxray improved a/p pneumonia- improving, oxygenation has improved as well day #6 antibiotics- rocephin/zith (po) can change to po levaquin 500 daily to complete total 10 days DOMENICA- resolving HTN- meds being adjusted f/u chest ct ordered by pulmonary
[2016-08-09] MEDS: ATORVASTATIN CA 20 MG TABLET (FP) PO SCH (21:18)
[2016-08-10] MEDS: ALBUTEROL SO4 2.5/IPRATROPIUM 0.5 INH SOL 3 ML VIAL.NEB. NEB SCH ×3 (00:05→11:35)
[2016-08-10] MEDS ORDERED: amLODIPine BESYLATE 10 MG TABLET (FP) PO ONE (06:30)
[2016-08-10] MEDS: HEPARIN NA (PORCINE) 5,000 UNITS/ML 1ML VIAL SQ SCH ×2 (06:32→14:00)
[2016-08-10 08:06] LABS: MCH 29.2 pg (25.7-33.7); MCHC 33.1 g/dl (32.0-35.9); MEAN CELL VOLUME 88.4 fl (80-96); MEAN PLT VOLUME 9.3 fl (7.5-11.1); PLATELET COUNT 342 K/MM3 (134-434); RDW 14.6 % (11.9-15.9); WHITE BLOOD COUNT 15.3 K/mm3 (4.0-10.0)
[2016-08-10 08:29] LABS: ALBUMIN 2.9 g/dl (3.4-5.0); BILIRUBIN,TOTAL 0.4 mg/dL (0.2-1.0); CALCIUM 8.4 mg/dL (8.5-10.1); COCKROFT - GAULT 56.41; CREATININE 1.5 mg/dL (0.7-1.3); TOT PROT 6.8 g/dl (6.4-8.2)
--- NOTE | 2016-08-10 08:31 | PN ---
Physical Exam: SUBJECTIVE: Patient seen and examined. Feels very well, ready to go home. OBJECTIVE: Vital Signs Period Temp Pulse Resp BP Sys/[place] Pulse Ox Last 24 Hr 97.9 F-98.8 F 80-103 20-22 149-159/93-112 90-97 GENERAL: The patient is awake, alert, and fully oriented, in no acute distress. HEAD: Normal with no signs of trauma. EYES: PERRL, extraocular movements intact, sclera anicteric, conjunctiva clear. No ptosis. LUNGS: Breath sounds equal, clear to auscultation bilaterally, no wheezes, no crackles, no accessory muscle use. HEART: Regular rate and rhythm, S1, S2 without murmur, rub or gallop. ABDOMEN: Soft, nontender, nondistended, normoactive bowel sounds, no guarding, no rebound EXTREMITIES: 2+ pulses, warm, well-perfused, no edema. NEUROLOGICAL: Cranial nerves II through XII grossly intact. Normal speech, gait not observed. Laboratory Results - last 24 hr 08/10/16 07:35 WBC 15.3 H RBC 5.36 Hgb 15.7 Hct 47.4 MCV 88.4 MCHC 33.1 RDW 14.6 Plt Count 342 MPV 9.3 Active Medications Generic Name Dose Route Start Last Admin Trade Name Freq PRN Reason Stop Dose Admin Albuterol Sulfate 1 amp 08/08/16 07:44 Ventolin 0.083% Nebulizer Soln - NEB Q4H PRN SHORT OF BREATH/WHEEZING Albuterol/Ipratropium 1 amp 08/08/16 12:00 08/10/16 07:26 Duoneb - NEB 1 amp Q6HPO [facility] Administration Amlodipine Besylate 10 mg 08/08/16 10:00 08/09/16 10:14 Norvasc - PO 10 mg DAILY [facility] Administration Aspirin 81 mg 08/08/16 10:00 08/09/16 09:01 Asa - PO 81 mg DAILY [facility] Administration Atorvastatin Calcium 20 mg 08/08/16 22:00 08/09/16 21:18 Lipitor - PO 20 mg HS [facility] Administration Azithromycin 250 mg 08/09/16 14:00 08/09/16 14:55 Zithromax - PO 250 mg DAILY [facility] Administration Chlordiazepoxide HCl 25 mg 08/08/16 07:44 Librium - PO Q4H PRN WITHDRAWAL(CONT SUBST) Heparin Sodium (Porcine) 5,000 unit 08/08/16 14:00 08/10/16 06:32 Heparin - SQ 5,000 unit TID [facility] Administration Hydralazine HCl 10 mg 08/09/16 18:00 08/09/16 21:18 Apresoline - PO 10 mg QID [facility] Administration Ceftriaxone Sodium 100 mls @ 200 mls/hr 08/08/16 10:00 08/09/16 09:01 Rocephin 2gm Ivpb (Pre-Docked) IVPB 200 mls/hr DAILY [facility] Administration Pantoprazole Sodium 40 mg 08/08/16 10:00 08/09/16 09:01 Protonix - PO 40 mg DAILY [facility] Administration Prednisone 20 mg 08/09/16 13:30 08/09/16 13:36 Deltasone - PO Not Given DAILY [facility] ASSESSMENT/PLAN: 51 year-old male with a PMH of HTN, HLD, and ETOH abuse, admitted for hypoxic respiratory failure secondary to multilobar CAP. Hypoxic respiratory failure, resolved Multilobar CAP --persistent leukocytosis, afebrile --serial CXRs show diffuse bilateral infiltrates/airspace disease --Flu negative; Legionella negative; blood NGTD; TB Gold and sputum cx pending --continue azithro (day #3), ceftriaxone (day #3), vanc (day #1) --duonebs Chronic systolic heart failure --08/04 Echo: LV function mildly reduced, mild global hypokinesis; mild MR; mild TR; mild AI --euovolemic, no diuresis --will need outpatient stress Elevated troponins --flat trending, likely from demand --per cardiology, start ASA, statin Hypertension --switch to Toprol XL BID Hyperlipidemia --continue statin Acute kidney injury --Cr 2.7 on admission, now 1.7, baseline unknown --hold ACEI/ARB --renal following Chronic ETOH abuse --drinks 6 drinks daily, more on special occasions; drinks whole bottle of scotch in one evening several times per month --+ asterixis on exam --librium PRN F/E/N Fluids: PO intake adequate Electrolytes: replete as indicated Nutrition: low sodium diabetic DVT prophylaxis: subq heparin, oob, ambulation Physical therapy Dispo: continues to require ICU care. Full Code.
[2016-08-10] MEDS ORDERED: PT OWN MED DRAWER 7, Y5N ONE (09:18)
[2016-08-10] MEDS: ASPIRIN 81 MG CHEWABLE TABLETS PO SCH (09:28)
[2016-08-10] MEDS: CEFTRIAXONE 100 ML IVPB SCH (09:28)
[2016-08-10] MEDS: predniSONE 20 MG TABLET (UD) PO SCH (09:28)
[2016-08-10] MEDS: PANTOPRAZOLE 40 MG TABLET (FP) PO SCH (09:28)
[2016-08-10] MEDS: amLODIPine BESYLATE 10 MG TABLET (FP) PO SCH (09:29)
[2016-08-10] MEDS: AZITHROMYCIN 250 MG TABLET (FP) PO SCH (09:29)
[2016-08-10] MEDS: hydrALAZINE HCL 10 MG TABLET PO SCH ×2 (09:30→13:06)
--- NOTE | 2016-08-10 10:51 | PN ---
Progress Note, Physician Chief Complaint: ID Clinical improvement no SOB cough fever Day 6 therapy - Current Medication List Current Medications: Active Medications Albuterol Sulfate (Ventolin 0.083% Nebulizer Soln -) 1 amp NEB Q4H PRN PRN Reason: SHORT OF BREATH/WHEEZING Albuterol/Ipratropium (Duoneb -) 1 amp NEB Q6HPO [facility] Last Admin: 08/10/16 07:26 Dose: 1 amp Amlodipine Besylate (Norvasc -) 10 mg PO DAILY [facility] Last Admin: 08/10/16 09:29 Dose: Not Given Aspirin (Asa -) 81 mg PO DAILY [facility] Last Admin: 08/10/16 09:28 Dose: 81 mg Atorvastatin Calcium (Lipitor -) 20 mg PO HS [facility] Last Admin: 08/09/16 21:18 Dose: 20 mg Azithromycin (Zithromax -) 250 mg PO DAILY [facility] Last Admin: 08/10/16 09:29 Dose: 250 mg Chlordiazepoxide HCl (Librium -) 25 mg PO Q4H PRN PRN Reason: WITHDRAWAL(CONT SUBST) Heparin Sodium (Porcine) (Heparin -) 5,000 unit SQ TID [facility] Last Admin: 08/10/16 06:32 Dose: 5,000 unit Hydralazine HCl (Apresoline -) 10 mg PO QID [facility] Last Admin: 08/10/16 09:30 Dose: 10 mg Ceftriaxone Sodium (Rocephin 2gm Ivpb (Pre-Docked)) 100 mls @ 200 mls/hr IVPB DAILY [facility] Last Admin: 08/10/16 09:28 Dose: 200 mls/hr Pantoprazole Sodium (Protonix -) 40 mg PO DAILY [facility] Last Admin: 08/10/16 09:28 Dose: 40 mg Prednisone (Deltasone -) 20 mg PO DAILY [facility] Last Admin: 08/10/16 09:28 Dose: 20 mg - Objective Vital Signs: Vital Signs Temperature 98.5 F 08/10/16 09:10 Pulse Rate 97 H 08/10/16 09:10 Respiratory Rate 18 08/10/16 09:10 Blood Pressure 160/95 08/10/16 09:10 O2 Sat by Pulse Oximetry (%) 94 L 08/09/16 21:00 Constitutional: Yes: Well Nourished, No Distress Neck: Yes: WNL, Supple Cardiovascular: Yes: S1, S2 Respiratory: Yes: WNL, Regular, CTA Bilaterally. No: Rales, Rhonchi Gastrointestinal: Yes: Soft. No: Tenderness, Tenderness, Rebound Edema: No Labs: CBC, BMP 08/10/16 07:35 08/10/16 07:35 INR, PTT INR 1.12 (0.82-1.09) 08/04/16 03:45 Assessment/Plan Laboratory Tests 08/04/16 08/05/16 08/10/16 17:30 08:15 07:35 WBC Hgb Plt Count Creat Clearance w eGFR 49.54 Cold Agglutinins Negative HIV 1&2 Antibody Screen Negative HIV P24 Antigen Negative 08/10/16 07:35 WBC 15.3 H Hgb 15.7 Plt Count 342 Creat Clearance w eGFR Cold Agglutinins HIV 1&2 Antibody Screen HIV P24 Antigen Assessment Severe community acquired PNA Improved after 6 days Plan Stop all antibiotics Taper steroids off Demario ADAMS
--- NOTE | 2016-08-10 12:18 | PN ---
Progress Note (short form) - Note Progress Note: PULMONARY Breathing close to baseline. No fevers or chills. Last Vital Signs Temp Pulse Resp BP Pulse Ox 98.5 F 97 H 18 160/95 97 08/10/16 09:10 08/10/16 09:10 08/10/16 09:10 08/10/16 09:10 08/10/16 09:00 Gen: NAD at rest Heart: RRR Lung: scattered basilar rales Abd: soft, nontender Ext: no edema CBC, BMP 08/10/16 07:35 08/10/16 07:35 Active Medications Albuterol Sulfate (Ventolin 0.083% Nebulizer Soln -) 1 amp NEB Q4H PRN PRN Reason: SHORT OF BREATH/WHEEZING Albuterol/Ipratropium (Duoneb -) 1 amp NEB Q6HPO [facility] Last Admin: 08/10/16 07:26 Dose: 1 amp Amlodipine Besylate (Norvasc -) 10 mg PO DAILY [facility] Last Admin: 08/10/16 09:29 Dose: Not Given Aspirin (Asa -) 81 mg PO DAILY [facility] Last Admin: 08/10/16 09:28 Dose: 81 mg Atorvastatin Calcium (Lipitor -) 20 mg PO HS [facility] Last Admin: 08/09/16 21:18 Dose: 20 mg Chlordiazepoxide HCl (Librium -) 25 mg PO Q4H PRN PRN Reason: WITHDRAWAL(CONT SUBST) Heparin Sodium (Porcine) (Heparin -) 5,000 unit SQ TID [facility] Last Admin: 08/10/16 06:32 Dose: 5,000 unit Hydralazine HCl (Apresoline -) 10 mg PO QID [facility] Last Admin: 08/10/16 09:30 Dose: 10 mg Pantoprazole Sodium (Protonix -) 40 mg PO DAILY [facility] Last Admin: 08/10/16 09:28 Dose: 40 mg Prednisone (Deltasone -) 20 mg PO DAILY [facility] Last Admin: 08/10/16 09:28 Dose: 20 mg A/P Multilobar Pneumonia ARDS improving Acute Kidney Injury improving HTN r/o COPD Exacerbation - completed antibiotics - inhaled bronchodilators - prednisone taper - O2 to keep SpO2 >90% - PO as tolerated - OOB to chair - will need outpt PFTs - will need outpt f/u of CXR in 6-8 weeks to ensure resolution of infiltrates
--- NOTE | 2016-08-10 12:41 | DS ---
Physical Exam: SUBJECTIVE: Patient seen and examined. Feels very well, ready to go home. OBJECTIVE: Vital Signs Period Temp Pulse Resp BP Sys/[place] Pulse Ox Last 24 Hr 97.9 F-98.8 F 80-97 18-22 149-160/93-112 90-97 PHYSICAL EXAM GENERAL: The patient is awake, alert, and fully oriented, in no acute distress. HEAD: Normal with no signs of trauma. EYES: PERRL, extraocular movements intact, sclera anicteric, conjunctiva clear. No ptosis. LUNGS: Breath sounds equal, clear to auscultation bilaterally, no wheezes, no crackles, no accessory muscle use. HEART: Regular rate and rhythm, S1, S2 without murmur, rub or gallop. ABDOMEN: Soft, nontender, nondistended, normoactive bowel sounds, no guarding, no rebound EXTREMITIES: 2+ pulses, warm, well-perfused, no edema. NEUROLOGICAL: Cranial nerves II through XII grossly intact. Normal speech, gait not observed. LABS Laboratory Results - last 24 hr 08/10/16 08/10/16 07:35 07:35 WBC 15.3 H RBC 5.36 Hgb 15.7 Hct 47.4 MCV 88.4 MCHC 33.1 RDW 14.6 Plt Count 342 MPV 9.3 Sodium 141 Potassium 3.9 Chloride 103 Carbon Dioxide 28 Anion Gap 10 BUN 24 H Creatinine 1.5 H Creat Clearance w eGFR 49.54 Random Glucose 95 Calcium 8.4 L Total Bilirubin 0.4 D AST 25 ALT 61 D Alkaline Phosphatase 81 Total Protein 6.8 Albumin 2.9 L D HOSPITAL COURSE: Date of Admission:08/04/16 Date of Discharge: 08/10/16 51 year-old male with a PMH of HTN, HLD, and ETOH abuse, admitted for hypoxic respiratory failure secondary to multilobar CAP. Hypoxic respiratory failure, resolved --required NIPPV, transitioned to venti mask, then NC --on room air at time of discharge Multilobar CAP --serial CXRs showed diffuse bilateral infiltrates/airspace disease --Flu negative; Legionella negative; blood NGTD; TB Gold and sputum cx pending --continue azithro (day #3), ceftriaxone (day #3), vanc (day #1) --duonebs Chronic systolic heart failure --08/04 Echo: LV function mildly reduced, mild global hypokinesis; mild MR; mild TR; mild AI --euovolemic, no diuresis --will need outpatient stress Elevated troponins --flat trending, likely from demand --per cardiology, start ASA, statin Hypertension --switch to Toprol XL BID Hyperlipidemia --continue statin Acute kidney injury --Cr 2.7 on admission, now 1.7, baseline unknown --hold ACEI/ARB --renal following Chronic ETOH abuse --drinks 6 drinks daily, more on special occasions; drinks whole bottle of scotch in one evening several times per month --+ asterixis on exam --librium PRN Multilobar CAP --persistent leukocytosis, afebrile --serial CXRs show diffuse bilateral infiltrates/airspace disease --Flu negative; Legionella negative; blood NGTD; sputum negative --completed 6-day course of azithromycin and 7-day course of ceftriaxone Chronic systolic heart failure --08/04 Echo: LV function mildly reduced, mild global hypokinesis; mild MR; mild TR; mild AI --euovolemic, no diuresis --will need outpatient stress Elevated troponins --flat trending, likely from demand --per cardiology, treated with ASA, statin Hypertension --switched to Toprol XL BID Hyperlipidemia --continued statin Acute kidney injury --Cr 2.7 on admission, 1.5 at time of discharge, baseline unknown --hold ACEI/ARB --renal following Chronic ETOH abuse --drinks 6 drinks daily, more on special occasions; drinks whole bottle of scotch in one evening several times per month --+ asterixis on exam --treated with librium PRN Minutes to complete discharge: 35 Discharge Summary Reason For Visit: PULMONARY EDEMA DYSPNEA Current Active Problems DOMENICA (acute kidney injury) (Acute) ARDS (adult respiratory distress syndrome) (Acute) Acute hypoxemic respiratory failure (Acute) Dyspnea (Acute) Elevated troponin (Acute) Flash pulmonary edema (Acute) HLD (hyperlipidemia) (Acute) HTN (hypertension) (Acute) High anion gap metabolic acidosis (Acute) Hyperglycemia (Acute) Hypertensive emergency (Acute) LV dysfunction (Acute) Lactate blood increase (Acute) Pulmonary edema (Acute) Respiratory failure with hypoxia (Acute) SIRS (systemic inflammatory response syndrome) (Acute) Sepsis (Acute) Condition: Improved - Instructions Diet, Activity, Other Instructions: Three prescriptions have been sent to your pharmacy. Two are for blood pressure : hydralazine and amlodipine. The third is prednisone which is a steroid. Take these medications as directed. It is important you follow up with Dr. Rosa next week to have your blood pressure checked. He may want to adjust your blood pressure medications. Return to the emergency department for any new or worsening symptoms. Referrals: Sharona Rosa MD [Staff Physician] - Disposition: HOME - Home Medications Comprehensive Discharge Medication List: Ambulatory Orders Amlodipine Besylate [Norvasc -] 10 mg PO DAILY #30 tablet 08/10/16 Atorvastatin Ca [Lipitor] 20 mg PO HS tablet 08/10/16 Hydralazine HCl [Apresoline -] 10 mg PO QID #120 tablet 08/10/16 Prednisone 5 mg PO ASDIR #14 tablet 08/10/16 This patient is new to me today: Yes Date on this admission: 08/11/16 Emergency Visit: Yes ED Registration Date: 08/04/16 Care time: The patient presented to the Emergency Department on the above date and was hospitalized for further evaluation of their emergent condition. Critical Care patient: No - Discharge Referral Referred to [facility] Med P.C.: No
[2016-08-10 12:52] VITALS: BP 155/100
--- NOTE | 2016-08-10 13:18 | PN ---
Progress Note, Physician History of Present Illness: Pt seen and examined at bedside. He is awake and alert. He is eager to go home. He denies dysuria or hematuria. - Current Medication List Current Medications: Active Medications Albuterol Sulfate (Ventolin 0.083% Nebulizer Soln -) 1 amp NEB Q4H PRN PRN Reason: SHORT OF BREATH/WHEEZING Albuterol/Ipratropium (Duoneb -) 1 amp NEB Q6HPO [facility] Last Admin: 08/10/16 07:26 Dose: 1 amp Amlodipine Besylate (Norvasc -) 10 mg PO DAILY [facility] Last Admin: 08/10/16 09:29 Dose: Not Given Aspirin (Asa -) 81 mg PO DAILY [facility] Last Admin: 08/10/16 09:28 Dose: 81 mg Atorvastatin Calcium (Lipitor -) 20 mg PO HS [facility] Last Admin: 08/09/16 21:18 Dose: 20 mg Chlordiazepoxide HCl (Librium -) 25 mg PO Q4H PRN PRN Reason: WITHDRAWAL(CONT SUBST) Heparin Sodium (Porcine) (Heparin -) 5,000 unit SQ TID [facility] Last Admin: 08/10/16 06:32 Dose: 5,000 unit Hydralazine HCl (Apresoline -) 10 mg PO QID [facility] Last Admin: 08/10/16 13:06 Dose: 10 mg Pantoprazole Sodium (Protonix -) 40 mg PO DAILY [facility] Last Admin: 08/10/16 09:28 Dose: 40 mg Prednisone (Deltasone -) 20 mg PO DAILY [facility] Last Admin: 08/10/16 09:28 Dose: 20 mg - Objective Vital Signs: Vital Signs Temperature 98.4 F 08/10/16 12:51 Pulse Rate 88 08/10/16 12:51 Respiratory Rate 18 08/10/16 12:51 Blood Pressure 155/100 08/10/16 12:51 O2 Sat by Pulse Oximetry (%) 97 08/10/16 09:00 Constitutional: Yes: Calm Eyes: Yes: Conjunctiva Clear HENT: Yes: Atraumatic Neck: Yes: Supple Cardiovascular: Yes: S1, S2 Respiratory: Yes: CTA Bilaterally Gastrointestinal: Yes: Normal Bowel Sounds, Soft Genitourinary: Yes: WNL Edema: No Neurological: Yes: Oriented Psychiatric: Yes: Oriented Labs: CBC, BMP 08/10/16 07:35 08/10/16 07:35 INR, PTT INR 1.12 (0.82-1.09) 08/04/16 03:45 Problem List - Problems (1) DOMENICA (acute kidney injury) Code(s): N17.9 - ACUTE KIDNEY FAILURE, UNSPECIFIED (2) ARDS (adult respiratory distress syndrome) Code(s): J80 - ACUTE RESPIRATORY DISTRESS SYNDROME (3) Elevated troponin Code(s): R74.8 - ABNORMAL LEVELS OF OTHER SERUM ENZYMES (4) HLD (hyperlipidemia) Code(s): E78.5 - HYPERLIPIDEMIA, UNSPECIFIED (5) HTN (hypertension) Code(s): I10 - ESSENTIAL (PRIMARY) HYPERTENSION (6) Respiratory failure with hypoxia Code(s): J96.91 - RESPIRATORY FAILURE, UNSPECIFIED WITH HYPOXIA Assessment/Plan Current Medications Generic Name Dose Route Start Last Admin Trade Name Freq PRN Reason Stop Dose Admin Albuterol Sulfate 1 amp 08/08/16 07:44 Ventolin 0.083% Nebulizer Soln - NEB Q4H PRN SHORT OF BREATH/WHEEZING Albuterol/Ipratropium 1 amp 08/08/16 12:00 08/10/16 07:26 Duoneb - NEB 1 amp Q6HPO [facility] Administration Amlodipine Besylate 10 mg 08/08/16 10:00 08/10/16 09:29 Norvasc - PO Not Given DAILY [facility] Aspirin 81 mg 08/08/16 10:00 08/10/16 09:28 Asa - PO 81 mg DAILY [facility] Administration Atorvastatin Calcium 20 mg 08/08/16 22:00 08/09/16 21:18 Lipitor - PO 20 mg HS [facility] Administration Chlordiazepoxide HCl 25 mg 08/08/16 07:44 Librium - PO Q4H PRN WITHDRAWAL(CONT SUBST) Heparin Sodium (Porcine) 5,000 unit 08/08/16 14:00 08/10/16 06:32 Heparin - SQ 5,000 unit TID [facility] Administration Hydralazine HCl 10 mg 08/09/16 18:00 08/10/16 13:06 Apresoline - PO 10 mg QID [facility] Administration Pantoprazole Sodium 40 mg 08/08/16 10:00 08/10/16 09:28 Protonix - PO 40 mg DAILY [facility] Administration Prednisone 20 mg 08/09/16 13:30 08/10/16 09:28 Deltasone - PO 20 mg DAILY [facility] Administration Impression 1. DOMENICA 2. sepsis 3. HTN 4. hyperlipidemia 5. ARDS 6. lactic acidosis 7. CHF with systolic dysfunction 8. resp failure requiring Bipap 9. hypoxia Plan - will need outpt follow up - monitor blood pressure - pt denies shortness of breath and clinically is improved - will see in office - will need better BP control - discussed low salt diet - will follow Dr Rosa
[2016-08-10 14:01] VITALS: PULSE 93; TEMP 98.3
[2016-08-10] MEDS ORDERED: INFLUENZA VACCINE 45 MCG/0.5 ML (MDV 16-17) IM ONE (14:15)
== END 2016-08-10 14:10 | disposition home or self-care (01) | DRG 193 ==
LOC: JER 03:47 → JERBED 05:09 → UNDOADMIN 06:17 → JICU 15:51 → J6S 08-07 21:01
PROVIDERS: ADMIT Internal Medicine; ATTEND Nurse Practitioner Acute Care
PROC: 5A09557 Assistance with Respiratory Ventilation, Greater than 96 Consecutive Hours, Continuous Positive Airway Pressure (ICD-10-PCS; principal; 2016-08-04)
DX: J18.9 Pneumonia, unspecified organism (principal); J96.91 Respiratory failure, unspecified with hypoxia; J81.0 Acute pulmonary edema; N17.9 Acute kidney failure, unspecified; E87.2 Acidosis; I50.22 Chronic systolic (congestive) heart failure; I11.0 Hypertensive heart disease with heart failure; E78.5 Hyperlipidemia, unspecified; R74.8 Abnormal levels of other serum enzymes; R00.0 Tachycardia, unspecified; F10.10 Alcohol abuse, uncomplicated; Z87.891 Personal history of nicotine dependence
CPT/HCPCS: 36415; 36600; 71010-TC; 71250-TC; 80048; 80053; 80061; 81003; 81015; 82375; 82436; 82550; 82553; 82570; 82803; 83036; 83050; 83516; 83520; 83605; 83721; 83735; 83880; 84100; 84133; 84155; 84165; 84300; 84484; 85025; 85027; 85610; 85651; 86038; 86063; 86140; 86157; 86160; 86225; 86256; 86480; 86704; 86706; 86708; 87040; 87070; 87086; 87205; 87254; 87340; 87389; 87420; 87804; 87899; 90670; 93005; 93010; 93306-TC; 94640; 94660; 94761; 97116-GP; 97161-GP; 99285-25; G0008; G0009; G0480; J1644; Q2037